=== PATIENT | male | born 1960 | race Caucasian/White ===

== ENCOUNTER 2022-08-31 17:34 | Emergency (ER) | payer OTHER ==
--- OUTSIDE RECORDS SUMMARY | 2022-08-31 17:38 | XMS REPORT | Clinical Summary ---
:1960 Author Organization [facility] MD [facility] Address [address] [place] [address] Care Team Providers Name Role Phone Unavailable Primary Care Provider Unavailable Allergies No known active allergies Medications Medication Sig Dispensed Refills Start Date End Date Status docosahexaenoic Take 2,000 mg by 0 Active acid/epa (FISH OIL mouth daily. ORAL) nicotine (NICODERM CQ) Apply 1 patch to 28 patch 0 03/05/2021 Active 21 mg/24 hr transdermal skin and change patchIndications: patch daily as Tobacco dependence directed for syndrome tobacco cessation (alternate sites). NICORETTE 2 mg gum Chew and park 200 Piece 0 03/05/2021 Active fruit chillIndications: one piece every Tobacco dependence 2h. Avoid acidic syndrome beverages 5 min before, during & after gabapentin (NEURONTIN) Take one at HS 90 capsule 0 03/11/2021 Active 300 mg for first day capsuleIndications: then may Insomnia, not otherwise increase to 2-3 specified qHS buPROPion (WELLBUTRIN Take 1 tablet 30 tablet 0 04/09/2021 Active XL) 150 mg 24 hr (150 mg) by tabletIndications: mouth every Ex-smoker for less than morning. 1 year Active Problems Problem Noted Date Prostatitis 02/12/2021 Anxiety disorder 02/12/2021 Hypercholesterolemia 02/12/2021 Tobacco dependence syndrome 12/31/2020 Osteoporosis 09/23/2016 Obese class II 09/20/2013 Medical History Medical History Date Comments Gastroesophageal reflux disease Social History Tobacco Use Types Packs/Day Years Used Date Smoking Tobacco: Former Cigarettes 1 45 07/1975 - 01/22/2021 Smokeless Tobacco: Former Qu it: 1994 Tobacco Cessation: Counseling Given: Yes Alcohol Use Standard Drinks/Week Comments Yes 0 (1 standard drink = 0.6 oz pure Report s drinking 1-2 drinks per alcohol) month Sex Assigned at Date Recorded Not on file Obstetrics History Last Filed Vital Signs Not on file Plan of Treatment Health Maintenance Due Date Last Done Comments COVID-19 Vaccination (#1) 04/23/1962 Results Not on fileafter 08/31/2021
--- OUTSIDE RECORDS SUMMARY | 2022-08-31 17:41 | XMS REPORT | Continuity of Care Document ---
:1960 Author Organization [facility] t Address [address] [place] [address] [address] [place] [address] Care Team Providers Name Role Phone Vikki Kendrick MD Primary Care Physician Tammy Raymond Attending Clinician Unavailable SYSTEM, PROVIDER NOT IN Attending Clinician Unavailable CLAIR MENDOZA Attending Clinician Unavailable RODY HOGUE Attending Clinician Unavailable WHITNEY MOYA Attending Clinician Unavailable JESSE CHILDRESS Attending Clinician Unavailable Danae Luna Attending Clinician Danae Luna Admitting Clinician Problems Condition Condition Condition Status Onset Resolution Last Treating Co mments Source Name Details Category Date Date Treatment Clinician Date Prostatiti Prostatiti Disease Active U balbir s s 8-12 ity of 00:00: 00 [facility] Anxiety Anxiety Disease Active Univers disorder disorder 8-12 ity of 00:00: 00 MD [facility] Hyperchole Hyperchole Disease Active U balbir sterolemia sterolemia 8-12 it y of 00:00: 00 MD Alessandro craig [facility] Center Tobacco Tobacco Disease Active Univers dependence dependence 6-30 it y of syndrome syndrome 00:00: 00 MD [facility] COCAINE COCAINE Diagnosis Active 2017-07-01 Memoria ABUSE, ABUSE, - 08:03:00 l RHABDOMYOL RHABDOMYOL 00:00: He yaredtashi YIS, YIS, 00 HYPOKALEMI HYPOKALEMI Active 11/03/2016 [facility] OTHER OTHER Diagnosis Active 2016-11-03 Mem oria Active 11-03 23:17:00 l 11/03/2016 00:00: Bandar craig [address] Osteoporos Osteoporos Disease Active U nivers is is 09-23 ity of 00:00: [place] 00 MD [facility] Osteoporos Osteoporos Disease Active M leatha is with is with 09-23 st pathologic pathologic 00:00: Ho spita al al 00 l fracture fracture of ankle of ankle and foot and foot Hypogonadi Hypogonadi Disease Active M ethodi sm in male sm in male 09-23 00:00: Hospita 00 l Plantar Plantar Disease Active Methodi fasciitis fasciitis 07-12 00:00: Hospita 00 l Arthritis Arthritis Disease Active Met hodi of ankle of ankle 02-01 or foot, or foot, 00:00: Hospit a degenerati degenerati 00 l ve ve Obese Obese Disease Active Univers class II class II 3- ity of 00:00: [place] 00 MD [facility] Deficiency Deficienc Problem Active 2016-11-09 Memoria of y of 00:30:23 l macronutri macronutri He mala ents ents (disorder) (disorder) Active Problem 11/09/2016 [facility] COCAINE COCAINE Diagnosis Active 2017-07-01 Memoria ABUSE, ABUSE, 08:03:00 l UNCOMPLICA UNCOMPLICA He mala LANI GARIBAY Active [facility] RHABDOMYOL RHABDOMYO Diagnosis Active 2017-07-01 Memoria YSIS LYSIS 08:03:00 l Active [facility] HYPOKALEMI HYPOKALEM Diagnosis Active 2017-07-01 Memoria A IA Active 08:03:00 l [facility] [id number] Anxiety Problem Active [facility] [id number] Testostero Problem Active C ommon 104 ne Spirit deficiency - [facility] in male [facility] [id number] Body mass Problem Active Com mon index Spirit (BMI) of - CHI 34.0-34.9 [facility] in [facility] [id number] Obstructiv Problem Active Com mon e sleep Spirit apnea - [facility] syndrome [facility] [id number] Pure Problem Active Common hyperchole Spirit sterolemia - [facility] Allergies, Adverse Reactions, Alerts This patient has no known allergies or adverse reactions. Family History Family Member Diagnosis Comments Start Date Stop Date Source Natural mother Alzheimer's disease [facility] Social History Social Habit Start Date Stop Date Quantity Comments Source History of Tobacco [facility] - Use [facility] Cigarette 2021-01-28 2021-01-28 University of pack-years 00:00:00 00:00:00 Jaron Oneill [facility] Tobacco use and 2021-01-28 2021-01-28 Former smokeless Uni versity of exposure 00:00:00 00:00:00 tobacco user Jaron Mckeon [facility] Alcohol Comment 2020-12-31 2020-12-31 Reports drinking Uni versity of 00:00:00 00:00:00 1-2 drinks per Jaron austin [facility] Cigarettes smoked 2018-05-09 2018-05-09 [facility] current (pack per 00:00:00 00:00:00 [facility] l day) - Reported Alcohol intake 2018-05-09 2018-05-09 Current [facility] 00:00:00 00:00:00 non-drinker of Hospital alcohol (finding) Social History 2016-11-04 2016-11-04 [facility] frances 03:59:53 03:59:53 Sex Ass[birth year] At [birth year] [facility] 00:00:00 00:00:00 Hospital Smoking Status Start Date Stop Date Source Former Smoker 2019-07-19 00:00:00 2019-07-19 00:00:00 Common S pirit - [facility] Ce nter Smokes tobacco daily 2018-05-09 00:00:00 [facility] Medications Ordered Filled Start Stop Current Ordering Indication Dosage Frequency Signature Comments Components Source Medication Medication Date Date Medication? Clinician (SIG) Name Name buPROPion 2020-07 Yes Ex-smoker 150mg Take 1 Univers (WELLBUTRIN 0-07 for less tablet it y of XL) 150 mg 00:00: than 1 year (150 mg) [place] 24 hr 00 by mouth tablet every Anderso morning. [facility] gabapentin Yes Insomnia, Take one Univers (NEURONTIN) 03-11 not at HS for ity of 300 mg 00:00: otherwise first day [place] capsule 00 specified then may increase [email or web address] nicotine Yes Tobacco Apply 1 Uni vers (NICODERM 03-05 dependence patch to ity of CQ) 21 00:00: syndrome skin and Matthew as mg/24 hr 00 change transdermal patch Anderso patch daily as n directed Cancer for Center tobacco cessation (alternate sites). NICORETTE 2 Yes Tobacco Chew and Univers mg gum 03-05 dependence park one ity of fruit chill 00:00: syndrome piece [place] 00 every 2h. Avoid Anderso acidic n beverages Cancer 5 min Center before, during & after docosahexae Yes 2000mg Take 2,000 Univers noic 8-12 mg by ity of acid/epa 10:22: mouth [place] (FISH OIL 45 daily. ORAL) [facility] Ciprofloxac Ciprofloxac 2020- No Tammy 1 tablet Common in HCl in HCl 07-19 [place] [facility] 00:00: 00:00 - [facility]I 00 :00 [facility] Flomax Flomax 0 2020- No Tammy 1 capsule Co mmon 07-19 [place] [facility] 00:00: 00:00 - CHI 00 :00 [facility] Niacin Niacin Yes Tammy 1 capsule Com mon Flush Free Flush Free 6-20 [place] [facility] leticia 00:00: - [facility] BuPROPion BuPROPion Yes Tammy 1 tablet Common HCl ER (SR) HCl ER (SR) 5-07 [place] in the Spirit 00:00: morning - [facility] pen needle, Yes [id number] For use Methodi diabetic [address] (BD INSULIN 00:00: [facility] PEN NEEDLE 00 daily l UF MINI) 31 gauge x 3/16" needle tamsulosin Yes 0.4 mg = 1 M emoria 0.4 mg oral 5-06 cap, PO, l capsule 15:01: After [place] 00 Dinner, # 30 cap, 1 Refill(s), Pharmacy: [facility] [id number] Docusate Yes 100 mg = 1 Mem oria Sodium 100 5-06 cap, PO, l MG Oral 15:01: BID, # 20 Keerthi nn Capsule 00 cap, 0 Refill(s), Pharmacy: [facility] [place] [id number] tamsulosin Yes 0.4 mg = 1 M emoria 0.4 mg oral 5-06 cap, PO, l capsule 15:01: After [place] 00 Dinner, # 30 cap, 1 Refill(s), Pharmacy: [facility] [place] [id number] Docusate Yes 100 mg = 1 Mem oria Sodium 100 5-06 cap, PO, l MG Oral 15:01: BID, # 20 Keerthi nn Capsule 00 cap, 0 Refill(s), Pharmacy: [facility] [place] [id number] Protonix No Notes: Memoria 5-05 Tablet l 21:30: should not Aneta 00 be chewed or crushed. (Same as: Protonix) Protonix No Notes: Memoria 5-05 Tablet l 21:30: should not Aneta 00 be chewed or crushed. (Same as: Protonix) D5W ,000 No 1,000 mL, Mem oria mL + 5-05 Rate: 55 l potassium 20:01: ml/hr, Bandar n chloride 40 00 Infuse mEq over: 18.5 hr, Route: IV, Dosing Weight 99.091 kg, Total Volume: 1,020, Start date: 11/05/16 15:01:00 CDT, Duration: 30 day, Stop date: 12/05/16 15:00:00 CDT D5W ,000 No 1,000 mL, Mem oria mL + 5-05 Rate: 55 l potassium 20:01: ml/hr, Bandar n chloride 40 00 Infuse mEq over: 18.5 hr, Route: IV, Dosing Weight 99.091 kg, Total Volume: 1,020, Start date: 11/05/16 15:01:00 CDT, Duration: 30 day, Stop date: 12/05/16 15:00:00 CDT Flomax No Notes: Memoria 5-04 (Same As: l 22:00: Flomax) [place] 00 "Do Not Crush" Lovenox No Notes: Memoria 5-04 (Same as: l 22:00: Lovenox) [place] 00 Flomax No Notes: Memoria 5-04 (Same As: l 22:00: Flomax) [place] 00 "Do Not Crush" Lovenox No Notes: Memoria 5-04 (Same as: l 22:00: Lovenox) potassium No Notes: Memori a chloride 5-04 (Same as: l 17:59: K-Dur 20) "Do Not Crush" With food and full glass of water potassium No Notes: Memori a chloride 5-04 (Same as: l 17:59: K-Dur 20) [place] 00 "Do Not Crush" With food and full glass of water D5W 1,000 No 1,000 mL, Mem oria mL + 5-04 Rate: 100 l potassium 17:58: ml/hr, Bandar n chloride 40 00 Infuse mEq over: 10.2 hr, Route: IV, Dosing Weight 99.091 kg, Total Volume: 1,020, Start date: 11/04/16 12:58:00 CDT, Duration: 30 day, Stop date: 12/04/16 12:57:00 CDT D5W 1,000 No 1,000 mL, Mem oria mL + 5-04 Rate: 100 l potassium 17:58: ml/hr, Bandar n chloride 40 00 Infuse mEq over: 10.2 hr, Route: IV, Dosing Weight 99.091 kg, Total Volume: 1,020, Start date: 11/04/16 12:58:00 CDT, Duration: 30 day, Stop date: 12/04/16 12:57:00 CDT Fish Oil No Notes: Memoria 5-04 (Same as: l 14:00: MaxEPA, [place] 00 [place] 3 fish oil ) Non-Formu clarke Drug Docusate No Notes: Memoria 5-04 (Same as: l 14:00: Colace) (Do Not Crush) Fish Oil No Notes: Memoria 5-04 (Same as: l 14:00: MaxEPA, [place] Walnut 3 fish oil ) Non-Formul deepti Drug Docusate No Notes: Memoria 5-04 (Same as: l 14:00: Colace) (Do Not Crush) Fish Oil Yes = 1 cap, Memor ia 5-04 PO, Daily, l 06:45: 0 Aneta 00 Refill(s) multivitami Yes 1 tab, Akhil asia n 5-04 Daily, 0 l 06:45: Refill(s) [place] 00 Fish Oil Yes = 1 cap, Memor ia 5-04 PO, Daily, l 06:45: 0 [place] 00 Refill(s) multivitami Yes 1 tab, Akhil asia n 5-04 Daily, 0 l 06:45: Refill(s) Acetaminoph No 100.4 F, M emoria en 5-04 Start l 06:10: date: [place] 00 11/04/16 1:10:00 CDT, Duration: 30 day, Stop date: 12/04/16 1:09:00 CDT Acetaminoph No Notes: Akhil asia en 325 MG / 5-04 (Same as: l Hydrocodone 06:10: [place] Keerthi nn Bitartrate 00 325/5) Do 5 MG Oral not exceed Tablet 4gm/day of acetaminop hen. Morphine No Notes: Memoria 5-04 (Same l 06:10: as:MORPhin e Sulfate) Ondansetron No 4 mg, Memor ia 5-04 Route: l 06:10: IVP, Q6H, Dosing Weight 100, kg, PRN Nausea & Vomiting, Start date: 11/04/16 1:10:00 CDT, Duration: 30 day, Stop date: 12/04/16 1:09:00 CDT Acetaminoph No 100.4 F, M emoria en 5-04 Start l 06:10: date: Aneta 00 11/04/16 1:10:00 CDT, Duration: 30 day, Stop date: 12/04/16 1:09:00 CDT Acetaminoph No Notes: Akhil asia en 325 MG / 5-04 (Same as: l Hydrocodone 06:10: [place] Keerthi nn Bitartrate 00 325/5) Do 5 MG Oral not exceed Tablet 4gm/day of acetaminop hen. Morphine No Notes: Memoria 5-04 (Same l 06:10: as:MORPhin [place] 00 e Sulfate) Ondansetron No 4 mg, Memor ia 11-04 Route: l 06:10: IVP, Q6H, Aneta Dosing Weight 100, kg, PRN Nausea & Vomiting, Start date: 11/04/16 1:10:00 CDT, Duration: 30 day, Stop date: 12/04/16 1:09:00 CDT Ondansetron No Notes: Akhil asia -04 (Same as: l 04:51: Zofran) Aneta 00 MEDICATION WASTE Product Size: 4 mg Product Wasted: ___ mg Acetaminoph No Notes: Do M emoria en - not exceed l 04:51: 4 gm/day. [place]on 00 (Same as: Tylenol) Ondansetron No Notes: Akhil saia -04 (Same as: l 04:51: Zofran) Aneta 00 MEDICATION WASTE Product Size: 4 mg Product Wasted: ___ mg Acetaminoph No Notes: Do M emoria en 5-04 not exceed l 04:51: 4 gm/day. Aneta 00 (Same as: Tylenol) potassium No Notes: Memori a chloride 20 5-04 (Same as: l mEq oral 04:05: K-Dur 20) Herm tashi tablet, 00 " extended release potassium No Notes: Memori a chloride 20 5-04 (Same as: l mEq oral 04:05: K-Dur 20) Herm tashi tablet, 00 " extended release Sodium No 1,000 mL, Memori a Chloride -04 Rate: 150 l 0.154 04:04: ml/hr, [place] MEQ/ML 00 Infuse Injectable over: 6.7 Solution hr, Route: IV, Dosing Weight 100 kg, Total Volume: 1,000, Start date: 11/03/16 23:04:00 CDT, Duration: 30 day, Stop date: 12/03/16 23:03:00 CDT Ativan No Notes: Memoria 5-04 (Same as: l 04:04: Ativan) Aneta Sodium No 1,000 mL, Memori a Chloride 5-04 Rate: 150 l 0.154 04:04: ml/hr, [place] MEQ/ML 00 Infuse Injectable over: 6.7 Solution hr, Route: IV, Dosing Weight 100 kg, Total Volume: 1,000, Start date: 11/03/16 23:04:00 CDT, Duration: 30 day, Stop date: 12/03/16 23:03:00 CDT Ativan No Notes: Memoria 5-04 (Same as: l 04:04: Ativan) Aneta Sodium No 2,000 mL, Memori a Chloride 5-04 2000 l 0.154 04:03: ml/hr, [place] MEQ/ML 00 Infuse Injectable Over: 1 Solution hr, Route: IV, 2,000, Drug form: INJ, ONCE, Priority: STAT, Dosing Weight 100 kg, Start date: 11/03/16 23:03:00 CDT, Duration: 1 doses or times, Stop date: 11/03/16 23:03:00 CDT Sodium No 2,000 mL, Memori a Chloride 5-04 2000 l 0.154 04:03: ml/hr, [place] MEQ/ML 00 Infuse Injectable Over: 1 Solution hr, Route: IV, 2,000, Drug form: INJ, ONCE, Priority: STAT, Dosing Weight 100 kg, Start date: 11/03/16 23:03:00 CDT, Duration: 1 doses or times, Stop date: 11/03/16 23:03:00 CDT Saline No Notes: Memoria Flush 0.9% 5-04 Same as: l 02:36: BD [place] 00 Posiflush Sterile Saline No Notes: Memoria Flush 0.9% 5-04 Same as: l 02:36: BD Aneta 00 Posiflush Sterile celecoxib Yes TAKE ONE Meth cleve (CeleBREX) 3-[address] 200 MG 00:00: MOUTH [facility]osp[facility] capsule 00 EVERY DAY l Fish Oil Fish Oil Yes Tammy 2 capsule C shamika [facility] Flomax 0.4 Flomax 0.4 No 1{capsu QD Flomax 0.4 MG MG le} MG Immunizations Ordered Immunization Filled Immunization Date Status Commen ts Source Name Name Flucelvax - single Flucelvax - single 2019-04-21 Completed [facility] dose syringe dose syringe 08:56:00 - [facility] Vital Signs Vital Name Observation Time Observation Value Comments Source Respitory Rate 2016-11-06 12:54:00 Memori al [place] Systolic (mm Hg) 2016-11-06 12:54:00 Akhil rial [place] Diastolic (mm Hg) 2016-11-06 12:54:00 Mem orial Aneta Heart Rate 2016-11-06 12:54:00 Memorial [place] Temperature Oral (F) 2016-11-06 12:54:00 98.3 F Memorial [place] Respitory Rate 2016-11-06 09:59:00 Memori al Aneta Temperature Oral (F) 2016-11-06 09:59:00 98.8 F Memorial [place] Systolic (mm Hg) 2016-11-06 09:59:00 Akhil rial [place] Diastolic (mm Hg) 2016-11-06 09:59:00 Mem orial Aneta Temperature Oral (F) 2016-11-06 06:20:00 98.9 F Memorial [place] Systolic (mm Hg) 2016-11-06 06:20:00 Akhil rial Aneta Diastolic (mm Hg) 2016-11-06 06:20:00 Mem orial [place] Heart Rate 2016-11-06 06:20:00 Memorial [place] Respitory Rate 2016-11-06 00:24:00 Memori al [place] Heart Rate 2016-11-06 00:24:00 Memorial Aneta BMI Calculated 2016-11-04 06:11:00 Memori al [place] Weight 2016-11-04 06:11:00 Memorial Aneta Height 2016-11-04 06:11:00 172.72 cm Memorial Aneta Weight 2016-11-04 02:24:00 Memorial Aneta Procedures This patient has no known procedures. Plan of Care Planned Activity Planned Date Details Comments Source Future Scheduled 2022-06-17 COVID-19 VACCINE (#1) [facility] Test 11:52:21 [code = COVID-19 VACCINE (#1)] Future Scheduled 2022-06-17 COLONOSCOPY SCREENING [facility] Test 11:52:21 [code = COLONOSCOPY SCREENING] Future Scheduled 2022-06-17 SHINGLES VACCINES (1 [facility] Test 11:52:21 of 2) [code = SHINGLES VACCINES (1 of 2)] Future Scheduled 2022-06-17 INFLUENZA VACCINE [facility] Test 11:52:21 [code = INFLUENZA VACCINE] Future Scheduled 2022-04-06 COVID-19 [facility]ination [facility] [place] Test 08:23:01 (#1) [code = COVID-19 [facility] (#1)] Center Encounters Start End Encounter Admission Attending Care Care Encounter Source Date/Time Date/Time Type Type Clinicians Facility Department ID 2022-02-25 Outpatient Mandi, STLMLC STLC [id number] Common 15:20:[id number] [facility] 2021-07-29 Outpatient Mandi, STLMLC ST[facility] [id number] Common 11:00:[id number] [facility] 2020-12-31 Outpatient MARISOL, CHARLES SOTO [id number] 10:35:18 PROVIDER Jorden craig 2022-02-25 2022-02-25 [facility] [id number] Co mmon 00:00:00 00:00:00 [facility] 2021-04-09 2021-04-09 Outpatient ROHINI KELLYCHARLES MDA [id number] 19:53:56 19:53:56 CLAIR craig 2021-03-18 2021-03-18 Outpatient ROHINI VELEZ MDA, MDA [id number] 09:28:32 09:28:32 BELGICA, And merari craig 2021-03-05 2021-03-05 Outpatient ROHINI KELLYCHARLES MDA [id number] 21:05:45 21:05:45 CLAIR craig 2021-03-02 2021-03-02 Outpatient EL AGUSTIN SOTO MDA [id number] 13:45:38 13:45:38 BELGICA, And erso RODY n 2021-02-12 2021-02-12 Outpatient EL KELLY, MDA MDA [id number] 09:45:34 09:45:34 CLAIR craig 2021-02-11 2021-02-11 Outpatient EL AGUSTIN MDA MDA [id number] MD 10:33:14 10:33:14 BELGICA, And eduardoo RODY n 2021-02-04 2021-02-04 Outpatient EL NITA, MDA MDA [id number] MD 08:24:32 08:24:32 WHITNEY craig 2021-01-28 2021-01-28 Outpatient EL AGUSTIN MDA MDA [id number] MD 10:52:29 10:52:29 BELGICA, And eduardoo RODY n 2021-01-22 2021-01-22 Outpatient EL MONROE, MDA MDA [id number] MD 16:10:34 16:10:34 JESSE craig 2021-01-14 2021-01-14 Outpatient EL AGUSTIN MDA MDA [id number] MD 12:20:48 12:20:48 BELGICA, And erso RODY n 2021-01-07 2021-01-07 Outpatient EL AGUSTIN MDA MDA [id number] 10:27:02 10:27:02 BELGICA, And erso RODY n 2020-12-31 2020-12-31 Outpatient ROHINI CHILDRESS, MDA MDA [id number] 10:21:37 10:21:37 JESSE craig 2020-12-31 2020-12-31 Outpatient EL AGUSTIN MDA MDA [id number] 10:21:29 10:21:29 BELGICA, And erso RODY n 2019-07-19 2019-07-19 Outpatient [facility] [id number] Common 09:00:00 09:00:00 [facility] 2018-12-21 2018-12-21 Outpatient [facility] [id number] Common 08:00:00 08:00:00 [facility] 2018-12-13 2018-12-13 Outpatient M[facility]ail [facility] [id number] Common 15:54:00 15:54:00 t [facility] [address] [facility] 2018-11-07 2018-11-07 Outpatient Mikhail [facility] [id number] Common 09:00:00 09:00:00 t [facility] [address] [facility] 2016-11-04 2016-11-06 Inpatient nullFlavo [facility] [id number] Memoria 02:17:00 17:53:00 r [place] 00 l [facility] 2016-11-04 2016-11-06 Inpatient nullFlavo [facility] [id number] Memoria 02:17:00 17:53:00 r Aneta 00 l [facility] 2016-11-03 2016-11-06 Outpatient GEOVANY LunaJoe [facility] [id number] 21:17:00 12:53:00 Ohigbai 00 Results Test Description Test Time Test Comments Results Result Comments Source CARDIAC ENZYMES 2016-11-06 11:41:00 Test Item Value Reference Range Interpretation Comme nts Total CK (test code = Total CK) 199 12-191 [facility]2017-05-06 11:41:00 Test Item Value Reference Range Interpretation Comments eGFR (test code = eGFR) 104 [facility]2017-05-06 11:41:00 Test Item Value Reference Range Interpretation Comments Chloride Lvl (test code = Chloride Lvl) 111 95-109 [facility]2017-05-06 11:41:00 Test Item Value Reference Range Interpretation Comments CO2 (test code = CO2) 25 24-32 [facility]2017-05-06 11:41:00 Test Item Value Reference Range Interpretation Comments Potassium Lvl (test code = Potassium 4.1 3.5-5.1 Lvl) [facility]2017-05-06 11:41:00 Test Item Value Reference Range Interpretation Comments Calcium Lvl (test code = Calcium Lvl) 8.3 8.5-10.5 [facility]2017-05-06 11:41:00 Test Item Value Reference Range Interpretation Comments AGAP (test code = AGAP) 11.1 10.0-20.0 [facility]2017-05-06 11:41:00 Test Item Value Reference Range Interpretation Comments BUN (test code = BUN) 9 - [facility]2017-05-06 11:41:00 Test Item Value Reference Range Interpretation Comments Creatinine Lvl (test code = Creatinine 0.74 0.50-1.40 Lvl) [facility] [id number] 11:41:00 Test Item Value Reference Range Interpretation Comments Glucose Lvl (test code = Glucose Lvl) 90 70-99 [facility] [id number] 11:41:00 Test Item Value Reference Range Interpretation Comments Sodium Lvl (test code = Sodium Lvl) 143 135-145 [facility] [id number] 11:41:00 Test Item Value Reference Range Interpretation Comments Total CK (test code = Total CK) 199 12-191 [facility]2017-05-06 11:41:00 Test Item Value Reference Range Interpretation Comments eGFR (test code = eGFR) 104 [facility]2017-05-06 11:41:00 Test Item Value Reference Range Interpretation Comments Chloride Lvl (test code = Chloride Lvl) 111 95-109 [facility]2017-05-06 11:41:00 Test Item Value Reference Range Interpretation Comments CO2 (test code = CO2) 25 24-32 [facility]2017-05-06 11:41:00 Test Item Value Reference Range Interpretation Comments Potassium Lvl (test code = Potassium 4.1 3.5-5.1 Lvl) [facility]2017-05-06 11:41:00 Test Item Value Reference Range Interpretation Comments Calcium Lvl (test code = Calcium Lvl) 8.3 8.5-10.5 [facility]2017-05-06 11:41:00 Test Item Value Reference Range Interpretation Comments AGAP (test code = AGAP) 11.1 10.0-20.0 [facility]2017-05-06 11:41:00 Test Item Value Reference Range Interpretation Comments BUN (test code = BUN) 9 - [facility]2017-05-06 11:41:00 Test Item Value Reference Range Interpretation Comments Creatinine Lvl (test code = Creatinine 0.74 0.50-1.40 Lvl) [facility]2017-05-06 11:41:00 Test Item Value Reference Range Interpretation Comments Glucose Lvl (test code = Glucose Lvl) 90 70-99 [facility]2017-05-06 11:41:00 Test Item Value Reference Range Interpretation Comments Sodium Lvl (test code = Sodium Lvl) 143 135-145 [facility] [id number] 10:32:00 Test Item Value Reference Range Interpretation Comments Total CK (test code = Total CK) 476 12-191 [facility]2017-05-05 10:32:00 Test Item Value Reference Range Interpretation Comments Calcium Lvl (test code = Calcium Lvl) 8.2 8.5-10.5 [facility]2017-05-05 10:32:00 Test Item Value Reference Range Interpretation Comments CO2 (test code = CO2) 25 24-32 [facility]2017-05-05 10:32:00 Test Item Value Reference Range Interpretation Comments Chloride Lvl (test code = Chloride Lvl) 113 95-109 [facility]2017-05-05 10:32:00 Test Item Value Reference Range Interpretation Comments Potassium Lvl (test code = Potassium 4.0 3.5-5.1 Lvl) [facility]2017-05-05 10:32:00 Test Item Value Reference Range Interpretation Comments Sodium Lvl (test code = Sodium Lvl) 143 135-145 [facility]2017-05-05 10:32:00 Test Item Value Reference Range Interpretation Comments Creatinine Lvl (test code = Creatinine 0.77 0.50-1.40 Lvl) [facility]2017-05-05 10:32:00 Test Item Value Reference Range Interpretation Comments BUN (test code = BUN) 14 7-22 [facility]2017-05-05 10:32:00 Test Item Value Reference Range Interpretation Comments Glucose Lvl (test code = Glucose Lvl) 96 70-99 [facility]2017-05-05 10:32:00 Test Item Value Reference Range Interpretation Comments eGFR (test code = eGFR) 102 [facility]2017-05-05 10:32:00 Test Item Value Reference Range Interpretation Comments AGAP (test code = AGAP) 9.0 10.0-20.0 [facility] [id number] 10:32:00 Test Item Value Reference Range Interpretation Comments Total CK (test code = Total CK) 476 12-191 [facility]2017-05-05 10:32:00 Test Item Value Reference Range Interpretation Comments Calcium Lvl (test code = Calcium Lvl) 8.2 8.5-10.5 [facility]2017-05-05 10:32:00 Test Item Value Reference Range Interpretation Comments CO2 (test code = CO2) 25 24-32 [facility]2017-05-05 10:32:00 Test Item Value Reference Range Interpretation Comments Chloride Lvl (test code = Chloride Lvl) 113 95-109 [facility]2017-05-05 10:32:00 Test Item Value Reference Range Interpretation Comments Potassium Lvl (test code = Potassium 4.0 3.5-5.1 Lvl) [facility]2017-05-05 10:32:00 Test Item Value Reference Range Interpretation Comments Sodium Lvl (test code = Sodium Lvl) 143 135-145 [facility]2017-05-05 10:32:00 Test Item Value Reference Range Interpretation Comments Creatinine Lvl (test code = Creatinine 0.77 0.50-1.40 Lvl) [facility]2017-05-05 10:32:00 Test Item Value Reference Range Interpretation Comments BUN (test code = BUN) 14 7-22 [facility]2017-05-05 10:32:00 Test Item Value Reference Range Interpretation Comments Glucose Lvl (test code = Glucose Lvl) 96 70-99 [facility]2017-05-05 10:32:00 Test Item Value Reference Range Interpretation Comments eGFR (test code = eGFR) 102 [facility]2017-05-05 10:32:00 Test Item Value Reference Range Interpretation Comments AGAP (test code = AGAP) 9.0 10.0-20.0 [facility] [id number] 16:45:00 Test Item Value Reference Range Interpretation Comments CK MB Index (test 0.7 See_Comment [Automate d message] The code = CK MB Index) system w [facility] generated this result transmit lani reference range : <=2.5. The reference range was not used to interpr et this result as derek l/abnormal. [facility] [employer] [id number] 16:45:00 Test Item Value Reference Range Interpretation Comments CK MB (test code = CK MB) 7.9 0.5-3.6 [facility] [employer] [id number] 16:45:00 Test Item Value Reference Range Interpretation Comments Troponin-I (test code 0.02 See_Comment [Auto mated message] The = Troponin-I) system which g enerated this result transmit lani reference range : <=0.40. The reference r tiesha was not used to interpr et this result as derek l/abnormal. [facility] [id number] 16:45:00 Test Item Value Reference Range Interpretation Comments Total CK (test code = Total CK) 1210 12-191 [facility] [employer] [id number] 16:45:00 Test Item Value Reference Range Interpretation Comments eGFR (test code = eGFR) 100 [facility] [employer] [id number] 16:45:00 Test Item Value Reference Range Interpretation Comments Alk Phos (test code = Alk Phos) 56 39-136 [facility] [employer] [id number] 16:45:00 Test Item Value Reference Range Interpretation Comments Bili Total (test code = Bili Total) 0.5 0.2-1.3 [facility] [employer] [id number] 16:45:00 Test Item Value Reference Range Interpretation Comments AST (test code = AST) 89 See_Comment [Auto mated message] The system which ge nerated this result transmit lani reference range : <=37. The reference range was not used to interpr et this result as derek l/abnormal. [facility] [employer]2017-05-04 16:45:00 Test Item Value Reference Range Interpretation Comments ALT (test code = ALT) 91 See_Comment [Auto mated message] The system which ge nerated this result transmit lani reference range : <=65. The reference range was not used to interpr et this result as derek l/abnormal. [facility] [employer]2017-05-04 16:45:00 Test Item Value Reference Range Interpretation Comments A/G Ratio (test code = A/G Ratio) 1.0 0.7-1.6 [facility] [employer]2017-05-04 16:45:00 Test Item Value Reference Range Interpretation Comments Globulin (test code = Globulin) 2.9 2.7-4.2 [facility]2017-05-04 16:45:00 Test Item Value Reference Range Interpretation Comments Albumin Lvl (test code = Albumin Lvl) 2.9 3.5-5.0 [facility]2017-05-04 16:45:00 Test Item Value Reference Range Interpretation Comments B/C Ratio (test code = B/C Ratio) 22 6-25 [facility]2017-05-04 16:45:00 Test Item Value Reference Range Interpretation Comments Total Protein (test code = Total 5.8 6.4-8.4 Protein) [facility]2017-05-04 16:45:00 Test Item Value Reference Range Interpretation Comments Calcium Lvl (test code = Calcium Lvl) 7.8 8.5-10.5 [facility]2017-05-04 16:45:00 Test Item Value Reference Range Interpretation Comments BUN (test code = BUN) 18 7-22 [facility]2017-05-04 16:45:00 Test Item Value Reference Range Interpretation Comments Creatinine Lvl (test code = Creatinine 0.80 0.50-1.40 Lvl) [facility]2017-05-04 16:45:00 Test Item Value Reference Range Interpretation Comments Glucose Lvl (test code = Glucose Lvl) 100 70-99 [facility]2017-05-04 16:45:00 Test Item Value Reference Range Interpretation Comments CO2 (test code = CO2) 24 24-32 [facility]2017-05-04 16:45:00 Test Item Value Reference Range Interpretation Comments AGAP (test code = AGAP) 13.2 10.0-20.0 [facility]2017-05-04 16:45:00 Test Item Value Reference Range Interpretation Comments Potassium Lvl (test code = Potassium 3.2 3.5-5.1 Lvl) [facility]2017-05-04 16:45:00 Test Item Value Reference Range Interpretation Comments Chloride Lvl (test code = Chloride Lvl) 113 95-109 [facility]2017-05-04 16:45:00 Test Item Value Reference Range Interpretation Comments Sodium Lvl (test code = Sodium Lvl) 147 135-145 [facility] C[id number] 16:45:00 Test Item Value Reference Range Interpretation Comments Hep C Ab (test code = Negative *NA*(11/04/16 Hep C Ab) 11:45 AM) [facility] [id number] 16:45:00 Test Item Value Reference Range Interpretation Comments Hep B Core IgM (test Negative *NA*(11/04/16 code = Hep B Core 11:45 AM) IgM) [facility] [id number] 16:45:00 Test Item Value Reference Range Interpretation Comments Hep A IgM (test code Negative *NA*(11/04/16 = Hep A IgM) 11:45 AM) [facility] Cent[id number] 16:45:00 Test Item Value Reference Range Interpretation Comments Hep Bs Ag (test code Negative *NA*(11/04/16 = Hep Bs Ag) 11:45 AM) [facility]oc[facility] 16:45:00 Test Item Value Reference Range Interpretation Comments CK MB Index (test 0.7 See_Comment [Automate d message] The code = CK MB Index) system w [facility] generated this result transmit lani reference range : <=2.5. The reference range was not used to interpr et this result as derek l/abnormal. [facility] 16:45:00 Test Item Value Reference Range Interpretation Comments CK MB (test code = CK MB) 7.9 0.5-3.6 [facility] 16:45:00 Test Item Value Reference Range Interpretation Comments Troponin-I (test code 0.02 See_Comment [Auto mated message] The = Troponin-I) system which g enerated this result transmit lani reference range : <=0.40. The reference r tiesha was not used to interpr et this result as derek l/abnormal. [facility] Warrantly2017-05-04 16:45:00 Test Item Value Reference Range Interpretation Comments Total CK (test code = Total CK) 1210 12-191 [facility] [employer] [id number] 16:45:00 Test Item Value Reference Range Interpretation Comments eGFR (test code = eGFR) 100 [facility]2017-05-04 16:45:00 Test Item Value Reference Range Interpretation Comments Alk Phos (test code = Alk Phos) 56 39-136 [facility]2017-05-04 16:45:00 Test Item Value Reference Range Interpretation Comments Bili Total (test code = Bili Total) 0.5 0.2-1.3 [place] 273747-05-04 16:45:00 Test Item Value Reference Range Interpretation Comments AST (test code = AST) 89 See_Comment [Auto mated message] The system which ge nerated this result transmit lani reference range : <=37. The reference range was not used to interpr et this result as derek l/abnormal. [place] [address]-05-04 16:45:00 Test Item Value Reference Range Interpretation Comments ALT (test code = ALT) 91 See_Comment [Auto mated message] The system which ge nerated this result transmit lani reference range : <=65. The reference range was not used to interpr et this result as derek l/abnormal. [place] 273747-05-04 16:45:00 Test Item Value Reference Range Interpretation Comments A/G Ratio (test code = A/G Ratio) 1.0 0.7-1.6 [place] 273747-05-04 16:45:00 Test Item Value Reference Range Interpretation Comments Globulin (test code = Globulin) 2.9 2.7-4.2 [place] 273747-05-04 16:45:00 Test Item Value Reference Range Interpretation Comments Albumin Lvl (test code = Albumin Lvl) 2.9 3.5-5.0 [facility]2017-05-04 16:45:00 Test Item Value Reference Range Interpretation Comments B/C Ratio (test code = B/C Ratio) 22 6-25 [place] [address]-05-04 16:45:00 Test Item Value Reference Range Interpretation Comments Total Protein (test code = Total 5.8 6.4-8.4 Protein) [place] 273747-05-04 16:45:00 Test Item Value Reference Range Interpretation Comments Calcium Lvl (test code = Calcium Lvl) 7.8 8.5-10.5 [place] 273747-05-04 16:45:00 Test Item Value Reference Range Interpretation Comments BUN (test code = BUN) 18 7-22 [facility]2017-05-04 16:45:00 Test Item Value Reference Range Interpretation Comments Creatinine Lvl (test code = Creatinine 0.80 0.50-1.40 Lvl) [facility]2017-05-04 16:45:00 Test Item Value Reference Range Interpretation Comments Glucose Lvl (test code = Glucose Lvl) 100 70-99 [facility]2017-05-04 16:45:00 Test Item Value Reference Range Interpretation Comments CO2 (test code = CO2) 24 24-32 [facility]2017-05-04 16:45:00 Test Item Value Reference Range Interpretation Comments AGAP (test code = AGAP) 13.2 10.0-20.0 [facility]2017-05-04 16:45:00 Test Item Value Reference Range Interpretation Comments Potassium Lvl (test code = Potassium 3.2 3.5-5.1 Lvl) [facility]2017-05-04 16:45:00 Test Item Value Reference Range Interpretation Comments Chloride Lvl (test code = Chloride Lvl) 113 95-109 [facility]2017-05-04 16:45:00 Test Item Value Reference Range Interpretation Comments Sodium Lvl (test code = Sodium Lvl) 147 135-145 [facility]XQ[facility]TSJGK7062[facility]84 16:45:00 Test Item Value Reference Range Interpretation Comments Hep C Ab (test code = Negative *NA*(11/04/16 Hep C Ab) 11:45 AM) [facility] [id number] 16:45:00 Test Item Value Reference Range Interpretation Comments Hep B Core IgM (test Negative *NA*(11/04/16 code = Hep B Core 11:45 AM) IgM) [facility] [id number] 16:45:00 Test Item Value Reference Range Interpretation Comments Hep A IgM (test code Negative *NA*(11/04/16 = Hep A IgM) 11:45 AM) [facility] Tyl[id number] 16:45:00 Test Item Value Reference Range Interpretation Comments Hep Bs Ag (test code Negative *NA*(11/04/16 = Hep Bs Ag) 11:45 AM) [facility] [id number] 16:06:00 Test Item Value Reference Range Interpretation Comments U Opiate Scr (test Negative *NA*(11/04/16 code = U Opiate Scr) 11:06 AM) [facility] [id number] 16:06:00 Test Item Value Reference Range Interpretation Comments U Amph Scr (test code Negative *NA*(11/04/16 = U Amph Scr) 11:06 AM) [facility] [id number] 16:06:00 Test Item Value Reference Range Interpretation Comments UA RBC (test None Seen See_Comment [Automated mes [place]] code = UA RBC) (11/04/16 11:06 The system w hich AM) generated this result transmitted ref erence range: <=2. The reference range was not used to int erpret this result as normal/abnormal . [facility] [id number] 16:06:00 Test Item Value Reference Range Interpretation Comments UA WBC (test code = UA WBC) 0-2 /HPF [facility] [id number] 16:06:00 Test Item Value Reference Range Interpretation Comments UA Sq Epi (test code = UA Sq Occasional /LPF Epi) [facility] [id number] 16:06:00 Test Item Value Reference Range Interpretation Comments UA Bacteria (test code = UA Occasional /HPF Bacteria) [facility] [id number] 16:06:00 Test Item Value Reference Range Interpretation Comments UA Mucus (test code = UA Mucus) Few /LPF [facility] [id number] 16:06:00 Test Item Value Reference Range Interpretation Comments Micro? (test code = Performed (11/04/16 11:06 Micro?) AM) [facility] [id number] 16:06:00 Test Item Value Reference Range Interpretation Comments UA Nitrite (test code Negative (11/04/16 11:06 = UA Nitrite) AM) [facility] [id number] 16:06:00 Test Item Value Reference Range Interpretation Comments UA Leuk Est (test Negative (11/04/16 11:06 code = UA Leuk Est) AM) [facility] [id number] 16:06:00 Test Item Value Reference Range Interpretation Comments UA Urobilinogen (test code = UA 4.0 0.1-1.0 Urobilinogen) [facility] AND [id number] 16:06:00 Test Item Value Reference Range Interpretation Comments UA Protein (test code = UA Protein) 30 mg/dL [facility] AND [id number] 16:06:00 Test Item Value Reference Range Interpretation Comments UA Glucose (test code Negative (11/04/16 11:06 = UA Glucose) AM) [facility] AND [id number] 16:06:00 Test Item Value Reference Range Interpretation Comments UA Spec Grav (test code = UA Spec 1.020 1 Grav) [facility] AND [id number] 16:06:00 Test Item Value Reference Range Interpretation Comments UA Color (test code = Yellow *NA*(11/04/16 UA Color) 11:06 AM) [facility] AND [id number] 16:06:00 Test Item Value Reference Range Interpretation Comments UA Turbidity (test code = Clear (11/04/16 11:06 UA Turbidity) AM) [facility] AND [id number] 16:06:00 Test Item Value Reference Range Interpretation Comments UA Bili (test code = Moderate 1*ABN*(11/04/16 UA Bili) 11:06 AM) [facility] AND [id number] 16:06:00 Test Item Value Reference Range Interpretation Comments UA Ketones (test code = UA Ketones) 40 mg/dL [facility] AND [id number] 16:06:00 Test Item Value Reference Range Interpretation Comments UA Blood (test code = Negative (11/04/16 11:06 UA Blood) AM) [facility] AND [id number] 16:06:00 Test Item Value Reference Range Interpretation Comments UA pH (test code = UA pH) 6.0 1 5.0-8.0 [facility] AND [id number] 16:06:00 Test Item Value Reference Range Interpretation Comments UA Glucose (test code Negative (11/04/16 11:06 = UA Glucose) AM) [facility] AND [id number] 16:06:00 Test Item Value Reference Range Interpretation Comments UA Spec Grav (test code = UA Spec 1.020 1 Grav) [facility] AND [id number] 16:06:00 Test Item Value Reference Range Interpretation Comments UA Color (test code = Yellow *NA*(11/04/16 UA Color) 11:06 AM) [facility] [id number] 16:06:00 Test Item Value Reference Range Interpretation Comments UA Turbidity (test code = Clear (11/04/16 11:06 UA Turbidity) AM) [facility] [id number] 16:06:00 Test Item Value Reference Range Interpretation Comments UA Bili (test code = Moderate 1*ABN*(11/04/16 UA Bili) 11:06 AM) [facility] [id number] 16:06:00 Test Item Value Reference Range Interpretation Comments UA Ketones (test code = UA Ketones) 40 mg/dL [facility] [id number] 16:06:00 Test Item Value Reference Range Interpretation Comments UA Blood (test code = Negative (11/04/16 11:06 UA Blood) AM) [facility] [id number] 16:06:00 Test Item Value Reference Range Interpretation Comments UA pH (test code = UA pH) 6.0 1 5.0-8.0 [facility] [id number] 16:06:00 Test Item Value Reference Range Interpretation Comments U Cocaine Scr (test Positive *ABN*(11/04/16 code = U Cocaine Scr) 11:06 AM) [facility] [id number] 16:06:00 Test Item Value Reference Range Interpretation Comments U Angie Scr (test code Negative *NA*(11/04/16 = U Angie Scr) 11:06 AM) [facility] [id number] 16:06:00 Test Item Value Reference Range Interpretation Comments U Benzodia Scr (test Negative *NA*(11/04/16 code = U Benzodia Scr) 11:06 AM) [facility] [id number] 16:06:00 Test Item Value Reference Range Interpretation Comments UDS Note (test code = See Note (11/04/16 11:06 UDS Note) AM) [facility] [id number] 16:06:00 Test Item Value Reference Range Interpretation Comments U Phencyc Scr (test Negative *NA*(11/04/16 code = U Phencyc Scr) 11:06 AM) [facility] [id number] 16:06:00 Test Item Value Reference Range Interpretation Comments U Cannab Scr (test Negative *NA*(11/04/16 code = U Cannab Scr) 11:06 AM) [facility] [id number] 16:06:00 Test Item Value Reference Range Interpretation Comments U Opiate Scr (test Negative *NA*(11/04/16 code = U Opiate Scr) 11:06 AM) [facility] [id number] 16:06:00 Test Item Value Reference Range Interpretation Comments U Amph Scr (test code Negative *NA*(11/04/16 = U Amph Scr) 11:06 AM) [facility] [id number] 16:06:00 Test Item Value Reference Range Interpretation Comments UA RBC (test None Seen See_Comment [Automated mes [place]] code = UA RBC) (11/04/16 11:06 The system w [facility] AM) generated this result transmitted ref erence range: <=2. The reference range was not used to int erpret this result as normal/abnormal . [facility] [id number] 16:06:00 Test Item Value Reference Range Interpretation Comments UA WBC (test code = UA WBC) 0-2 /HPF [facility] [id number] 16:06:00 Test Item Value Reference Range Interpretation Comments UA Sq Epi (test code = UA Sq Occasional /LPF Epi) [facility] [id number] 16:06:00 Test Item Value Reference Range Interpretation Comments UA Bacteria (test code = UA Occasional /HPF Bacteria) [facility] [id number] 16:06:00 Test Item Value Reference Range Interpretation Comments UA Mucus (test code = UA Mucus) Few /LPF [facility] [id number] 16:06:00 Test Item Value Reference Range Interpretation Comments Micro? (test code = Performed (11/04/16 11:06 Micro?) AM) [facility] [id number] 16:06:00 Test Item Value Reference Range Interpretation Comments UA Nitrite (test code Negative (11/04/16 11:06 = UA Nitrite) AM) [facility] [id number] 16:06:00 Test Item Value Reference Range Interpretation Comments UA Leuk Est (test Negative (11/04/16 11:06 code = UA Leuk Est) AM) [facility] [id number] 16:06:00 Test Item Value Reference Range Interpretation Comments UA Urobilinogen (test code = UA 4.0 0.1-1.0 Urobilinogen) [facility] [id number] 16:06:00 Test Item Value Reference Range Interpretation Comments UA Protein (test code = UA Protein) 30 mg/dL [facility] [id number] 16:06:00 Test Item Value Reference Range Interpretation Comments U Cocaine Scr (test Positive *ABN*(11/04/16 code = U Cocaine Scr) 11:06 AM) [facility] [id number] 16:06:00 Test Item Value Reference Range Interpretation Comments U Angie Scr (test code Negative *NA*(11/04/16 = U Angie Scr) 11:06 AM) [facility] [id number] 16:06:00 Test Item Value Reference Range Interpretation Comments U Benzodia Scr (test Negative *NA*(11/04/16 code = U Benzodia Scr) 11:06 AM) [facility] [id number] 16:06:00 Test Item Value Reference Range Interpretation Comments UDS Note (test code = See Note (11/04/16 11:06 UDS Note) AM) [facility] [id number] 16:06:00 Test Item Value Reference Range Interpretation Comments U Phencyc Scr (test Negative *NA*(11/04/16 code = U Phencyc Scr) 11:06 AM) [facility] [id number] 16:06:00 Test Item Value Reference Range Interpretation Comments U Cannab Scr (test Negative *NA*(11/04/16 code = U Cannab Scr) 11:06 AM) [facility] [id number] 11:54:00 Test Item Value Reference Range Interpretation Comments Troponin-I (test code 0.03 See_Comment [Auto mated message] The = Troponin-I) system which g enerated this result transmit lani reference range : <=0.40. The reference r tiesha was not used to interpr et this result as derek l/abnormal. [facility] [id number] 11:54:00 Test Item Value Reference Range Interpretation Comments CK MB Index (test 0.7 See_Comment [Automate d message] The code = CK MB Index) system w [facility] generated this result transmit lani reference range : <=2.5. The reference range was not used to interpr et this result as derek l/abnormal. [facility] [id number] 11:54:00 Test Item Value Reference Range Interpretation Comments CK MB (test code = CK MB) 10.6 0.5-3.6 [id number] 11:54:00 Test Item Value Reference Range Interpretation Comments Basophils # (test code 0.1 See_Comment [Aut omated message] The = Basophils #) system which generated this result tra nsmitted reference range : <=0.2. The reference r tiesha was not used to int erpret this result as normal/abnormal . [facility] [id number] 11:54:00 Test Item Value Reference Range Interpretation Comments Monocytes # (test code 0.7 See_Comment [Aut omated message] The = Monocytes #) system which generated this result tra nsmitted reference range : <=0.8. The reference r tiesha was not used to int erpret this result as normal/abnormal . [facility] H[id number] 11:54:00 Test Item Value Reference Range Interpretation Comments Eosinophils # (test code 0.3 See_Comment [A utomated message] The = Eosinophils #) system [facility] generated this result tra nsmitted reference range : <=0.5. The reference r tiesha was not used to int erpret this result as normal/abnormal . [facility] H[id number] 11:54:00 Test Item Value Reference Range Interpretation Comments Eosinophils (test code = 3.3 See_Comment [A utomated message] The Eosinophils) system which ge nerated this result tra nsmitted reference range : <=4.0. The reference r tiesha was not used to int erpret this result as normal/abnormal . [facility] H[id number] 11:54:00 Test Item Value Reference Range Interpretation Comments Basophils (test code = 0.6 See_Comment [Aut omated message] The Basophils) system which ge nerated this result tra nsmitted reference range : <=1.0. The reference r tiesha was not used to int erpret this result as normal/abnormal . [id number] 11:54:00 Test Item Value Reference Range Interpretation Comments Monocytes (test code = Monocytes) 8.3 2.0-12.0 [facility] [id number] 11:54:00 Test Item Value Reference Range Interpretation Comments Segs-Bands # (test code = Segs-Bands #) 5.6 1.5-8.1 [facility] [facility]WziomngKPKPKBDSLW5475-10-96 11:54:00 Test Item Value Reference Range Interpretation Comments Lymphocytes # (test code = Lymphocytes 2.2 1.0-5.5 #) [facility]ressOjpfelhHPZWGHXYMJ0836-94-59 11:54:00 Test Item Value Reference Range Interpretation Comments Lymphocytes (test code = Lymphocytes) 24.8 20.0-40.0 [facility] CypressRvgsaqrLXTGLLQPFJ4671-60-16 11:54:00 Test Item Value Reference Range Interpretation Comments Segs (test code = Segs) 63.0 45.0-75.0 [facility] CypressQlfaiomBOPWSUMOIA7894-50-81 11:54:00 Test Item Value Reference Range Interpretation Comments Hct (test code = Hct) 38.9 42.0-54.0 [facility] CypressBdnbgtiYMSKIUIDJA9013-12-65 11:54:00 Test Item Value Reference Range Interpretation Comments MCV (test code = MCV) 88.8 80.0-94.0 [facility] CypressGwpifkvRIAEEXTONG9093-61-18 11:54:00 Test Item Value Reference Range Interpretation Comments RBC (test code = RBC) 4.38 4.70-6.10 [facility] CypressYfyaxyzQEZIQQQIVL0840-75-37 11:54:00 Test Item Value Reference Range Interpretation Comments Hgb (test code = Hgb) 13.2 14.0-18.0 [facility] CypressHsxozvmLFNKNECHNL3997-00-63 11:54:00 Test Item Value Reference Range Interpretation Comments WBC (test code = WBC) 8.9 3.7-10.4 [facility] CypressVsfwmbyNZIZMACICP2393-57-47 11:54:00 Test Item Value Reference Range Interpretation Comments Platelet (test code = Platelet) 179 133-450 [facility]UymjugvARRQVJEGVR8683-10-00 11:54:00 Test Item Value Reference Range Interpretation Comments MPV (test code = MPV) 9.5 7.4-10.4 [facility] CenterZqaopjfJEUZTURTTR1433-15-10 11:54:00 Test Item Value Reference Range Interpretation Comments MCHC (test code = MCHC) 34.0 32.0-36.0 [facility] CenterAnjelzxOUMDARWBQM2229-03-00 11:54:00 Test Item Value Reference Range Interpretation Comments RDW (test code = RDW) 14.0 11.5-14.5 [facility] CenterBaxgzodVXGNEFMHPO0622-75-63 11:54:00 Test Item Value Reference Range Interpretation Comments MCH (test code = MCH) 30.2 pg 27.0-31.0 [facility] CenterRoc2Loc2017-[facility] 11:54:00 Test Item Value Reference Range Interpretation Comments Troponin-I (test code 0.03 See_Comment [Auto mated message] The = Troponin-I) system which g enerated this result transmit lani reference range : <=0.40. The reference r tiesha was not used to interpr et this result as derek l/abnormal. [facility] TylerVKernel CorporationAYFDVJX1187-17-09 11:54:00 Test Item Value Reference Range Interpretation Comments CK MB Index (test 0.7 See_Comment [Automate d message] The code = CK MB Index) system w [facility] generated this result transmit lani reference range : <=2.5. The reference range was not used to interpr et this result as derek l/abnormal. [facility] TylerGIS Cloud OCDOPFI6886-68-39 11:54:00 Test Item Value Reference Range Interpretation Comments CK MB (test code = CK MB) 10.6 0.5-3.6 [facility] CenterHgxljacLPWPDSKVRR4147-58-25 11:54:00 Test Item Value Reference Range Interpretation Comments Basophils # (test code 0.1 See_Comment [Aut omated message] The = Basophils #) system which generated this result tra nsmitted reference range : <=0.2. The reference r tiesha was not used to int erpret this result as normal/abnormal . [facility] CenterNehbdyhWNIIEIJZFN3609-62-50 11:54:00 Test Item Value Reference Range Interpretation Comments Monocytes # (test code 0.7 See_Comment [Aut omated message] The = Monocytes #) system which generated this result tra nsmitted reference range : <=0.8. The reference r tiesha was not used to int erpret this result as normal/abnormal . [facility] CypressBfkriglRIPDIFVWHT2891-49-55 11:54:00 Test Item Value Reference Range Interpretation Comments Eosinophils # (test code 0.3 See_Comment [A utomated message] The = Eosinophils #) system whic h generated this result tra nsmitted reference range : <=0.5. The reference r tiesha was not used to int erpret this result as normal/abnormal . [facility] CypressOsroxeuCBLWNCBWTZ5197-65-97 11:54:00 Test Item Value Reference Range Interpretation Comments Eosinophils (test code = 3.3 See_Comment [A utomated message] The Eosinophils) system which ge nerated this result tra nsmitted reference range : <=4.0. The reference r tiesha was not used to int erpret this result as normal/abnormal . [facility] CypressJhxnnucMJUIROWSIC7214-25-98 11:54:00 Test Item Value Reference Range Interpretation Comments Basophils (test code = 0.6 See_Comment [Aut omated message] The Basophils) system which ge nerated this result tra nsmitted reference range : <=1.0. The reference r tiesha was not used to int erpret this result as normal/abnormal . [facility] CypressRyqfjcbGFVXOJKXMM4667-39-77 11:54:00 Test Item Value Reference Range Interpretation Comments Monocytes (test code = Monocytes) 8.3 2.0-12.0 [facility] CypressWcyvwmoIGENLPRWRZ8390-13-31 11:54:00 Test Item Value Reference Range Interpretation Comments Segs-Bands # (test code = Segs-Bands #) 5.6 1.5-8.1 [facility] CypressHmivcwiUSZIPGONZP0599-94-54 11:54:00 Test Item Value Reference Range Interpretation Comments Lymphocytes # (test code = Lymphocytes 2.2 1.0-5.5 #) [facility] CypressDjtedvoMGLAKBPUTU8599-51-09 11:54:00 Test Item Value Reference Range Interpretation Comments Lymphocytes (test code = Lymphocytes) 24.8 20.0-40.0 [facility] CypressRwjasirSHPXOJWTXU2367-86-92 11:54:00 Test Item Value Reference Range Interpretation Comments Segs (test code = Segs) 63.0 45.0-75.0 [facility] CypressWluewgrFTRDAYCZKS8143-46-12 11:54:00 Test Item Value Reference Range Interpretation Comments Hct (test code = Hct) 38.9 42.0-54.0 [facility] CypressQzowxdtMYHRRLTIEW1637-70-90 11:54:00 Test Item Value Reference Range Interpretation Comments MCV (test code = MCV) 88.8 80.0-94.0 [facility] CypressDcmabjrNZDOLUTYYI0792-12-70 11:54:00 Test Item Value Reference Range Interpretation Comments RBC (test code = RBC) 4.38 4.70-6.10 [facility] CypressHbpzbnvHMUACVHZOR3485-66-20 11:54:00 Test Item Value Reference Range Interpretation Comments Hgb (test code = Hgb) 13.2 14.0-18.0 [facility] CypressCsjpjmhVEFREJJMQX4352-38-40 11:54:00 Test Item Value Reference Range Interpretation Comments WBC (test code = WBC) 8.9 3.7-10.4 [facility] CypressMklfyibGNDPGEYRIP4922-16-77 11:54:00 Test Item Value Reference Range Interpretation Comments Platelet (test code = Platelet) 179 133-450 [facility] CypressAwhzorxJBEWNTIWXA4947-13-64 11:54:00 Test Item Value Reference Range Interpretation Comments MPV (test code = MPV) 9.5 7.4-10.4 [facility] CypressFiszdudIPRSRUXACI1383-36-99 11:54:00 Test Item Value Reference Range Interpretation Comments MCHC (test code = MCHC) 34.0 32.0-36.0 [facility] CypressIlrearfZGRAMBADFI7729-79-70 11:54:00 Test Item Value Reference Range Interpretation Comments RDW (test code = RDW) 14.0 11.5-14.5 [facility] CypressJpdxwqbODTIZQNMUB1140-68-74 11:54:00 Test Item Value Reference Range Interpretation Comments MCH (test code = MCH) 30.2 pg 27.0-31.0 [place] [id number] 04:50:00 Test Item Value Reference Range Interpretation Comments Acetaminoph Lvl (test code = no gt 10-20 Acetaminoph Lvl) [place] [id number] 04:50:00 Test Item Value Reference Range Interpretation Comments Ethanol Lvl (test code = Ethanol Lvl) [facility]ntritiDWHHLOEACY0683-14-91 04:50:00 Test Item Value Reference Range Interpretation Comments Etoh (%) (test code = Etoh (%)) no gt [facility] BjkqdsnLSZVMLYVUK3406-29-28 04:50:00 Test Item Value Reference Range Interpretation Comments Salicylate Lvl (test no gt See_Comment [Autom ated message] The code = Salicylate Lvl) syste m which generated this result tra nsmitted reference range : <=30.0. The reference r tiesha was not used to int erpret this result as normal/abnormal . [facility] QlumttkLLYTLOQOCK5518-80-48 04:50:00 Test Item Value Reference Range Interpretation Comments Acetaminoph Lvl (test code = no gt 10-20 Acetaminoph Lvl) [facility] CenterLemcjmeIWDJFUBUGH2248-85-77 04:50:00 Test Item Value Reference Range Interpretation Comments Ethanol Lvl (test code = Ethanol Lvl) no gt [facility] CenterHqazjkrATZTJRJCHN0162-97-27 04:50:00 Test Item Value Reference Range Interpretation Comments Etoh (%) (test code = Etoh (%)) no gt [facility] CenterEfmgboyMTWGLDQHSB6031-02-24 04:50:00 Test Item Value Reference Range Interpretation Comments Salicylate Lvl (test no gt See_Comment [Autom ated message] The code = Salicylate Lvl) syste m which generated this result tra nsmitted reference range : <=30.0. The reference r tiesha was not used to int erpret this result as normal/abnormal . [facility] CenterPowerPot VSXGMUV3084-12-24 02:50:00 Test Item Value Reference Range Interpretation Comments CK MB Index (test 0.6 See_Comment [Automate d message] The code = CK MB Index) system w [facility] generated this result transmit lani reference range : <=2.5. The reference range was not used to interpr et this result as derek l/abnormal. [facility] CenterPowerPot NWMJDSM9083-98-80 02:50:00 Test Item Value Reference Range Interpretation Comments Troponin-I (test code 0.03 See_Comment [Auto mated message] The = Troponin-I) system which g enerated this result transmit lani reference range : <=0.40. The reference r tiesha was not used to interpr et this result as derek l/abnormal. [facility] TylerCARDIAC AGRBYDG7545-91-46 02:50:00 Test Item Value Reference Range Interpretation Comments CK MB (test code = CK MB) 20.8 0.5-3.6 [facility] [id number] 02:50:00 Test Item Value Reference Range Interpretation Comments Magnesium Lvl (test code = Magnesium 2.4 1.8-2.4 Lvl) [facility] TYOMN2830-62-25 02:50:00 Test Item Value Reference Range Interpretation Comments Lipase Lvl (test code = Lipase Lvl) 87 73-393 [facility]2017-05-04 02:50:00 Test Item Value Reference Range Interpretation Comments B/C Ratio (test code = B/C Ratio) 24 6-25 [facility]2017-05-04 02:50:00 Test Item Value Reference Range Interpretation Comments Total Protein (test code = Total 7.4 6.4-8.4 Protein) [facility]2017-05-04 02:50:00 Test Item Value Reference Range Interpretation Comments Bili Total (test code = Bili Total) 1.5 0.2-1.3 [facility]2017-05-04 02:50:00 Test Item Value Reference Range Interpretation Comments Alk Phos (test code = Alk Phos) 65 39-136 [facility]2017-05-04 02:50:00 Test Item Value Reference Range Interpretation Comments Globulin (test code = Globulin) 3.4 2.7-4.2 [facility]2017-05-04 02:50:00 Test Item Value Reference Range Interpretation Comments A/G Ratio (test code = A/G Ratio) 1.2 0.7-1.6 [facility]2017-05-04 02:50:00 Test Item Value Reference Range Interpretation Comments ALT (test code = ALT) 136 See_Comment [Auto mated message] The system which ge nerated this result transmit lani reference range : <=65. The reference range was not used to interpr et this result as derek l/abnormal. [facility] TylerFederal Finance HKJKI3240-32-20 02:50:00 Test Item Value Reference Range Interpretation Comments Albumin Lvl (test code = Albumin Lvl) 4.0 3.5-5.0 [facility]2017-05-04 02:50:00 Test Item Value Reference Range Interpretation Comments AST (test code = AST) 188 See_Comment [Auto mated message] The system which ge nerated this result transmit lani reference range : <=37. The reference range was not used to interpr et this result as derek l/abnormal. [facility] CypressAdabkilJJNUZIVRVF9433-97-75 02:50:00 Test Item Value Reference Range Interpretation Comments Eosinophils (test code = 2.1 See_Comment [A utomated message] The Eosinophils) system which ge nerated this result tra nsmitted reference range : <=4.0. The reference r tiesha was not used to int erpret this result as normal/abnormal . [facility] CypressTqppzfmZSKOTJBEJR9875-11-70 02:50:00 Test Item Value Reference Range Interpretation Comments Segs-Bands # (test code = Segs-Bands #) 7.8 1.5-8.1 [facility] CypressQuxcyjzIBAOWCYAEM2035-24-68 02:50:00 Test Item Value Reference Range Interpretation Comments Basophils (test code = 0.7 See_Comment [Aut omated message] The Basophils) system which ge nerated this result tra nsmitted reference range : <=1.0. The reference r tiesha was not used to int erpret this result as normal/abnormal . [facility] CypressCvyfidqMSFQGQDOCZ1129-93-29 02:50:00 Test Item Value Reference Range Interpretation Comments Monocytes (test code = Monocytes) 8.5 2.0-12.0 [facility] CypressBjmovfaWHCFPHFBCF6504-16-37 02:50:00 Test Item Value Reference Range Interpretation Comments Monocytes # (test code 1.0 See_Comment [Aut omated message] The = Monocytes #) system which generated this result tra nsmitted reference range : <=0.8. The reference r tiesha was not used to int erpret this result as normal/abnormal . [facility] CypressFpcayjrYACYHABSQV1482-54-80 02:50:00 Test Item Value Reference Range Interpretation Comments Eosinophils # (test code 0.3 See_Comment [A utomated message] The = Eosinophils #) system whic h generated this result tra nsmitted reference range : <=0.5. The reference r tiesha was not used to int erpret this result as normal/abnormal . [facility] CypressKpshhqrVGKBGUOISV4488-49-82 02:50:00 Test Item Value Reference Range Interpretation Comments Lymphocytes # (test code = Lymphocytes 2.9 1.0-5.5 #) [facility] CypressZeasixuKEJUMKCJXF2726-67-28 02:50:00 Test Item Value Reference Range Interpretation Comments Lymphocytes (test code = Lymphocytes) 24.1 20.0-40.0 [facility] CypressPwlzjitFVEZRNXREP0072-43-72 02:50:00 Test Item Value Reference Range Interpretation Comments Segs (test code = Segs) 64.6 45.0-75.0 [facility] CypressPlkqywuCDCAAUWDYA7413-77-15 02:50:00 Test Item Value Reference Range Interpretation Comments Basophils # (test code 0.1 See_Comment [Aut omated message] The = Basophils #) system which generated this result tra nsmitted reference range : <=0.2. The reference r tiesha was not used to int erpret this result as normal/abnormal . [facility] CypressLfnjgpjSNSIKLRXDX7113-92-97 02:50:00 Test Item Value Reference Range Interpretation Comments MCV (test code = MCV) 88.9 80.0-94.0 [facility] CypressWskxldjBKGAKOMWSJ6617-10-62 02:50:00 Test Item Value Reference Range Interpretation Comments RDW (test code = RDW) 13.7 11.5-14.5 [facility] CypressBctdkpmAHGMQYYFSH4845-09-50 02:50:00 Test Item Value Reference Range Interpretation Comments MCHC (test code = MCHC) 33.6 32.0-36.0 [facility] CypressXbpuebqZUKBAJSPDP4227-32-97 02:50:00 Test Item Value Reference Range Interpretation Comments MCH (test code = MCH) 29.8 pg 27.0-31.0 [facility] CypressZtuyqhxJMEVLAOCCC9005-95-06 02:50:00 Test Item Value Reference Range Interpretation Comments Platelet (test code = Platelet) 203 133-450 [facility] CypressVfvqajaVFMZBSZDCV7439-46-89 02:50:00 Test Item Value Reference Range Interpretation Comments MPV (test code = MPV) 9.5 7.4-10.4 [facility] CypressDuwfhjpWRMRBREXDH2013-42-77 02:50:00 Test Item Value Reference Range Interpretation Comments RBC (test code = RBC) 4.98 4.70-6.10 [facility] CypressTtbubskAPCHKGVAMS8261-49-13 02:50:00 Test Item Value Reference Range Interpretation Comments WBC (test code = WBC) 12.0 3.7-10.4 [facility] TylerMxafbheQWMAUGUOMN5680-25-03 02:50:00 Test Item Value Reference Range Interpretation Comments Hct (test code = Hct) 44.3 42.0-54.0 [facility] TylerPleovavREQYXWVZQA9349-73-09 02:50:00 Test Item Value Reference Range Interpretation Comments Hgb (test code = Hgb) 14.9 14.0-18.0 [facility] TylerGIS Cloud PLEVOAN1050-36-06 02:50:00 Test Item Value Reference Range Interpretation Comments CK MB Index (test 0.6 See_Comment [Automate d message] The code = CK MB Index) system w [facility] generated this result transmit lani reference range : <=2.5. The reference range was not used to interpr et this result as derek l/abnormal. [facility] Tyler[facility] XDQZKOC0896-72-33 02:50:00 Test Item Value Reference Range Interpretation Comments Troponin-I (test code 0.03 See_Comment [Auto mated message] The = Troponin-I) system which g enerated this result transmit lani reference range : <=0.40. The reference r tiesha was not used to interpr et this result as derek l/abnormal. [facility] CenterPlay With Pictures / Hang[employer] TPDILFJ8205-10-13 02:50:00 Test Item Value Reference Range Interpretation Comments CK MB (test code = CK MB) 20.8 0.5-3.6 [facility] [employer]2017-05-04 02:50:00 Test Item Value Reference Range Interpretation Comments Magnesium Lvl (test code = Magnesium 2.4 1.8-2.4 Lvl) [facility] CenterCaskJDDHZ5377-89-50 02:50:00 Test Item Value Reference Range Interpretation Comments Lipase Lvl (test code = Lipase Lvl) 87 73-393 [facility] [employer]2017-05-04 02:50:00 Test Item Value Reference Range Interpretation Comments B/C Ratio (test code = B/C Ratio) 24 6-25 [facility] CenterCaskJEDGU3656-63-88 02:50:00 Test Item Value Reference Range Interpretation Comments Total Protein (test code = Total 7.4 6.4-8.4 Protein) [facility] CenterCaskUZDHY9150-58-89 02:50:00 Test Item Value Reference Range Interpretation Comments Bili Total (test code = Bili Total) 1.5 0.2-1.3 [facility]2017-05-04 02:50:00 Test Item Value Reference Range Interpretation Comments Alk Phos (test code = Alk Phos) 65 39-136 [facility]2017-05-04 02:50:00 Test Item Value Reference Range Interpretation Comments Globulin (test code = Globulin) 3.4 2.7-4.2 [place] 273747-05-04 02:50:00 Test Item Value Reference Range Interpretation Comments A/G Ratio (test code = A/G Ratio) 1.2 0.7-1.6 [place] [address]-05-04 02:50:00 Test Item Value Reference Range Interpretation Comments ALT (test code = ALT) 136 See_Comment [Auto mated message] The system which ge nerated this result transmit lani reference range : <=65. The reference range was not used to interpr et this result as derek l/abnormal. [facility]2017-05-04 02:50:00 Test Item Value Reference Range Interpretation Comments Albumin Lvl (test code = Albumin Lvl) 4.0 3.5-5.0 [facility]2017-05-04 02:50:00 Test Item Value Reference Range Interpretation Comments AST (test code = AST) 188 See_Comment [Auto mated message] The system which ge nerated this result transmit lani reference range : <=37. The reference range was not used to interpr et this result as derek l/abnormal. [facility] CypressSmbhmhxLRQLGDSDZG5816-59-15 02:50:00 Test Item Value Reference Range Interpretation Comments Eosinophils (test code = 2.1 See_Comment [A utomated message] The Eosinophils) system which ge nerated this result tra nsmitted reference range : <=4.0. The reference r tiesha was not used to int erpret this result as normal/abnormal . [place] [address]-05-04 02:50:00 Test Item Value Reference Range Interpretation Comments Segs-Bands # (test code = Segs-Bands #) 7.8 1.5-8.1 [place] [address]-05-04 02:50:00 Test Item Value Reference Range Interpretation Comments Basophils (test code = 0.7 See_Comment [Aut omated message] The Basophils) system which ge nerated this result tra nsmitted reference range : <=1.0. The reference r tiesha was not used to int erpret this result as normal/abnormal . [facility] CypressIbitgfhWOTDAGXBIG4730-88-70 02:50:00 Test Item Value Reference Range Interpretation Comments Monocytes (test code = Monocytes) 8.5 2.0-12.0 [facility] CypressNejipzpEACLEIFXUW3374-42-51 02:50:00 Test Item Value Reference Range Interpretation Comments Monocytes # (test code 1.0 See_Comment [Aut omated message] The = Monocytes #) system which generated this result tra nsmitted reference range : <=0.8. The reference r tiesha was not used to int erpret this result as normal/abnormal . [facility] CypressNmqctdaWUOQHABZMN1809-16-38 02:50:00 Test Item Value Reference Range Interpretation Comments Eosinophils # (test code 0.3 See_Comment [A utomated message] The = Eosinophils #) system whic h generated this result tra nsmitted reference range : <=0.5. The reference r tiesha was not used to int erpret this result as normal/abnormal . [facility] CypressOtthrkoZTELUBGHLA6636-99-83 02:50:00 Test Item Value Reference Range Interpretation Comments Lymphocytes # (test code = Lymphocytes 2.9 1.0-5.5 #) [facility] CypressWnwacosXERTLWVSVZ5711-17-71 02:50:00 Test Item Value Reference Range Interpretation Comments Lymphocytes (test code = Lymphocytes) 24.1 20.0-40.0 [facility] CypressBocvqntOTZODRJJAI4253-84-67 02:50:00 Test Item Value Reference Range Interpretation Comments Segs (test code = Segs) 64.6 45.0-75.0 [facility] CypressNupedmuZKQZKKYIMP7234-85-27 02:50:00 Test Item Value Reference Range Interpretation Comments Basophils # (test code 0.1 See_Comment [Aut omated message] The = Basophils #) system which generated this result tra nsmitted reference range : <=0.2. The reference r tiesha was not used to int erpret this result as normal/abnormal . [facility] CypressRouzxfhXONBGRBWRJ6454-36-69 02:50:00 Test Item Value Reference Range Interpretation Comments MCV (test code = MCV) 88.9 80.0-94.0 [facility] CypressKtcxnpzPAXXCZRQEO6087-59-37 02:50:00 Test Item Value Reference Range Interpretation Comments RDW (test code = RDW) 13.7 11.5-14.5 [facility] CypressGirqjzzLPQMDPCIVE9149-48-37 02:50:00 Test Item Value Reference Range Interpretation Comments MCHC (test code = MCHC) 33.6 32.0-36.0 [facility] CypressZvrjjrkQYYSDRICEI8753-61-24 02:50:00 Test Item Value Reference Range Interpretation Comments MCH (test code = MCH) 29.8 pg 27.0-31.0 [facility] CypressXbxurmjGLRSFOEYOM1813-68-15 02:50:00 Test Item Value Reference Range Interpretation Comments Platelet (test code = Platelet) 203 133-450 [facility] CypressGxwhjwsDCTETIGESM7189-95-77 02:50:00 Test Item Value Reference Range Interpretation Comments MPV (test code = MPV) 9.5 7.4-10.4 [facility] CypressGkapwtrQJTSHWMQKD0733-26-67 02:50:00 Test Item Value Reference Range Interpretation Comments RBC (test code = RBC) 4.98 4.70-6.10 [facility] CypressJxyveaiPBFCAAXKLY4843-68-29 02:50:00 Test Item Value Reference Range Interpretation Comments WBC (test code = WBC) 12.0 3.7-10.4 [facility] CypressVybmzjhRJBUZMKUFT0237-07-78 02:50:00 Test Item Value Reference Range Interpretation Comments Hct (test code = Hct) 44.3 42.0-54.0 [facility] CypressQycedahDLYXGIAMUY5837-44-10 02:50:00 Test Item Value Reference Range Interpretation Comments Hgb (test code = Hgb) 14.9 14.0-18.0 [facility]
[2022-08-31] MEDS ORDERED: HYDROCODONE/APAP 7.5/325 MG TAB ONE (18:10)
--- NOTE | 2022-08-31 19:08 | RAD REPORT ---
EXAM DESCRIPTION: US - Extremity Venous Uni Ltd - 08/31/2022 6:52 pm CLINICAL HISTORY: Pain COMPARISON: None. TECHNIQUE: Real-time sonographic evaluation of the right lower extremity deep venous system was perf ormed. FINDINGS: Normal compressibility, flow augmentation, phasic flow and spontaneous flow is identified in the right lower extremity deep venous system. No intraluminal filling defects seen. IMPRESSION: No DVT in the right lower extremity.
--- NOTE | 2022-08-31 19:28 | EDPHYS ---
Physician Documentation [facility] Name: Jose L Ruby Age: 61 yrs Sex: Male : 1960 Arrival Date: 08/31/2022 Time: 17:37 Bed 23 Private MD: Alber Shin ED Physician Marv Britton HPI: 08/31 18:05 This 61 yrs old Male presents to ER via Wheelchair with complaints of Knee swelling. cp 18:05 The patient presents with pain, that is chronic. The complaints affect the right knee. cp Onset: The symptoms/episode began/occurred and became worse 1 week(s) ago, now with swelling of lower leg. Associated signs and symptoms: Pertinent positives: calf tenderness, swelling, Pertinent negatives fever, warmth, weakness. Severity of symptoms: in the emergency department the symptoms are unchanged, despite home interventions. Patient reports pcp believes he has a torn meniscus of right knee. Historical: - Allergies: 17:59 No Known Allergies; ap3 - Home Meds: 17:59 None [Active]; ap3 - PMHx: 17:59 None; ap3 - PSHx: 17:59 ankle; ap3 - Immunization history:: Client reports receiving the 2nd dose of the Covid vaccine, Flu vaccine is not up to date. - Social history:: Smoking status: Patient reports the use of cigarette tobacco products, smokes one-half pack cigarettes per day. ROS: 18:10 Constitutional: Negative for body aches, chills, fever, poor PO intake. cp 18:10 Eyes: Negative for injury, pain, redness, and discharge. cp 18:10 ENT: Negative for drainage from ear(s), ear pain, sore throat, difficulty swallowing, difficulty handling secretions. 18:10 Cardiovascular: Negative for chest pain, palpitations. 18:10 Respiratory: Negative for cough, shortness of breath, wheezing. 18:10 Abdomen/GI: Negative for abdominal pain, vomiting, diarrhea, constipation. 18:10 Back: Negative for pain at rest, pain with movement. 18:10 MS/extremity: Positive for pain, swelling, tenderness, of the right lower leg and right calf and right knee, Negative for injury or acute deformity, decreased range of motion, paresthesias. 18:10 Skin: Negative for cellulitis, rash. 18:10 All other systems are negative. Exam: 18:15 Constitutional: The patient appears in no acute distress, alert, awake, non-toxic, well cp developed, well nourished, uncomfortable. 18:15 Head/Face: Normocephalic, atraumatic. cp 18:15 Chest/axilla: Inspection: normal. 18:15 Cardiovascular: Rate: tachycardic. 18:15 Respiratory: the patient does not display signs of respiratory distress, Respirations: normal, no use of accessory muscles, no retractions, labored breathing, is not present. 18:15 Abdomen/GI: Exam negative for discomfort, distension, guarding, Inspection: abdomen appears normal. 18:15 Back: pain, is absent, ROM is normal. 18:15 Musculoskeletal/extremity: Extremities: grossly normal except: noted in the right knee and right lower leg: swelling, tenderness, There is no evidence of erythema, Perfusion: the extremity is normally perfused throughout, the right leg Sensation intact. DVT Exam: no erythema, no increased warmth, pain, that is moderate, of the right leg, of the right lower leg, swelling, tenderness. 18:15 Neuro: Orientation: to person, place \T\ time. Mentation: is normal, Motor: moves all fours, strength is normal. Vital Signs: 17:58 BP 122 / 95; Pulse 102; Resp 18; Temp 98.5; Pulse Ox 96% ; Weight 117.93 kg; ap3 18:45 BP 111 / 79; Pulse 86; Resp 18; Pulse Ox 98% on R/A; kr3 19:51 BP 106 / 79; Pulse 80; Resp 18; Pulse Ox 97% on R/A; kr3 MDM: 17:47 Patient medically screened. cp 18:15 Differential diagnosis: dislocation, closed fracture, contusion, tendonitis, DVT, cp cellulitis. 19:25 Data reviewed: vital signs, nurses notes, radiologic studies, ultrasound. 19:25 I considered the following discharge prescriptions or medication management in the emergency department Medications were administered in the Emergency Department. See MAR. Test considered but Not performed: X-ray: knee. Counseling: I had a detailed discussion with the patient and/or guardian regarding: the historical points, exam findings, and any diagnostic results supporting the discharge/admit diagnosis, radiology results, the need for outpatient follow up, for definitive care, a orthopedic surgeon, to return to the emergency department if symptoms worsen or persist or if there are any questions or concerns that arise at home. Response to treatment: the patient's symptoms have mildly improved after treatment, and as a result, I will discharge patient. 08/31 18:02 Order name: US Extremity Venous Unilateral Ltd; Complete Time: 19:13 cp 08/31 19:14 Order name: Zoran Wrap; Complete Time: 19:29 cp Administered Medications: 18:08 Drug: Hydrocodone-Acetaminophen (7.5 mg-325 mg) 1 tabs Route: PO; kr3 19:51 Follow up: Response: No adverse reaction; RASS: Alert and Calm (0) kr3 19:24 CANCELLED (Physician Discretion): Ketorolac 30 mg IM once cp Disposition Summary: 08/31/22 19:27 Discharge Ordered Location: Home cp Problem: new cp Symptoms: have improved cp Condition: Stable cp Diagnosis - Pain in right lower leg cp - Pain in right knee cp - Synovial cyst of popliteal space [Anna], right knee cp Followup: cp - With: Ji Hernandez MD - When: 2 - 3 days - Reason: Recheck today's complaints Discharge Instructions: - Discharge Summary Sheet cp - Joint Pain cp - Anna Cyst cp - Musculoskeletal Pain cp Forms: - Medication Reconciliation Form cp - Thank You Letter cp - Antibiotic Education cp - Prescription Opioid Use cp Prescriptions: - Mobic 7.5 mg Oral Tablet - take 1 tablet by ORAL route once daily take with food; 20 tablet; Refills: 0, cp Product Selection Permitted - Tramadol 50 mg Oral Tablet - take 1 tablet by ORAL route every 8 hours as needed; 12 tablet; Refills: 0, cp Product Selection Permitted Addendum: 09/02/2022 10:28 Co-signature as Attending Physician, Marv Britton MD I reviewed the patient's care r n provided by the Advanced Practice Provider and agree with the diagnosis and treatment plan. Signatures: Dispatcher [employer] EDMarv Bolanos MD MD rn Page, Corey, PA PA cp Yeimi Cobb RN RN ap3 Adina Schaffer RN RN kr3 Corrections: (The following items were deleted from the chart) 08/31 19:24 19:24 Ketorolac 30 mg IM once ordered. cp cp 09/01 16:39 08/31 18:15 This 61 yrs old Male presents to ER via Wheelchair with complaints of Knee cp swelling. cp
--- NOTE | 2022-08-31 19:28 | ER ---
Nurse's Notes [facility] Name: Jose L Ruby Age: 61 yrs Sex: Male : 1960 Arrival Date: 08/31/2022 Time: 17:37 Bed 23 Private MD: Alber Shin Diagnosis: Pain in right lower leg;Pain in right knee;Synovial cyst of popliteal space [Anna], right knee Presentation: 08/31 17:58 Chief complaint: Patient states: he has been having right knee pain for approx a week, ap3 with increased swelling. patient called his PCP who instructed him to come to the ED for further evaluation. patient reports pain as 8/10 on the pain scale. Coronavirus screen: At this time, the client does not indicate any symptoms associated with coronavirus-19. Ebola Screen: No symptoms or risks identified at this time. Initial Sepsis Screen: Does the patient meet any 2 criteria? No. Patient's initial sepsis screen is negative. Does the patient have a suspected source of infection? No. Patient's initial sepsis screen is negative. Risk Assessment: Do you want to hurt yourself or someone else? Patient reports no desire to harm self or others. Onset of symptoms was August 24, 2022. 17:58 Method Of Arrival: Wheelchair ap3 17:58 Acuity: NGUYỄN 3 ap3 Triage Assessment: 18:00 General: Appears uncomfortable, Behavior is calm, cooperative, appropriate for age. ap3 Pain: Complains of pain in right calf and medial aspect of right knee Pain began gradually, over the last week. Neuro: Level of Consciousness is awake, alert, obeys commands, Oriented to person, place, time, situation. Cardiovascular: Patient's skin is warm and dry. Respiratory: Airway is patent Respiratory effort is even, unlabored, Respiratory pattern is regular, symmetrical. Derm:. Musculoskeletal: Swelling present in right calf and right knee. Historical: - Allergies: 17:59 No Known Allergies; ap3 - Home Meds: 17:59 None [Active]; ap3 - PMHx: 17:59 None; ap3 - PSHx: 17:59 ankle; ap3 - Immunization history:: Client reports receiving the 2nd dose of the Covid vaccine, Flu vaccine is not up to date. - Social history:: Smoking status: Patient reports the use of cigarette tobacco products, smokes one-half pack cigarettes per day. Screenin:00 Abuse screen: Denies threats or abuse. Nutritional screening: No deficits noted. ap3 Tuberculosis screening: No symptoms or risk factors identified. 19:52 [facility] ED Fall Risk Assessment (Adult) History of falling in the last 3 months, kr3 including since admission No falls in past 3 months (0 pts) Confusion or Disorientation No (0 pts) Intoxicated or Sedated No (0 pts) Impaired Gait No (0 pts) Mobility Assist Device Used No (0 pt) Altered Elimination No (0 pt) Score/Fall Risk Level 0 - 2 = Low Risk Oriented to surroundings, Maintained a safe environment, Educated pt \T\ family on fall prevention, incl call for assistance when getting out of bed, Assessed \T\ reinforced patient's understanding of fall precautions, Hourly rounding (assess needs \T\ fall precautionary measures) done. Assessment: 18:15 Reassessment: see triage note. kr3 19:25 Reassessment: No changes from previously documented assessment. Patient is alert, kr3 oriented x 3, equal unlabored respirations, skin warm/dry/pink. Vital Signs: 17:58 BP 122 / 95; Pulse 102; Resp 18; Temp 98.5; Pulse Ox 96% ; Weight 117.93 kg; ap3 18:45 BP 111 / 79; Pulse 86; Resp 18; Pulse Ox 98% on R/A; kr3 19:51 BP 106 / 79; Pulse 80; Resp 18; Pulse Ox 97% on R/A; kr3 ED Course: 17:37 Patient arrived in ED. mr 17:37 Alber Shin MD is Private Physician. mr 17:45 Adina Schaffer, PACO is Primary Nurse. kr3 17:45 Elías Peralta PA is PHCP. cp 17:45 Marv Britton MD is Attending Physician. cp 17:59 Triage completed. ap3 18:01 Arm band placed on right wrist. ap3 18:01 Patient has correct armband on for positive identification. Bed in low position. Call ap3 light in reach. Side rails up X 1. Pulse ox on. NIBP on. Door closed. Noise minimized. 18:54 US Extremity Venous Unilateral Ltd In Process Unspecified. EDMS 19:26 Ji Hernandez MD is Referral Physician. cp 19:52 No provider procedures requiring assistance completed. Patient did not have IV access kr3 during this emergency room visit. Administered Medications: 18:08 Drug: Hydrocodone-Acetaminophen (7.5 mg-325 mg) 1 tabs Route: PO; kr3 19:51 Follow up: Response: No adverse reaction; RASS: Alert and Calm (0) kr3 19:24 CANCELLED (Physician Discretion): Ketorolac 30 mg IM once cp Medication: 19:52 VIS not applicable for this client. kr3 Outcome: 19:27 Discharge ordered by . cp 19:52 Discharged to home ambulatory. kr3 19:52 Condition: stable 19:52 Discharge instructions given to patient, Instructed on discharge instructions, follow up and referral plans. medication usage, Demonstrated understanding of instructions, follow-up care, medications, Prescriptions given X 2. 19:52 Patient left the ED. kr3 Signatures: Dispatcher [employer] EDWA Desirae Penn mr Elías Peralta PA PA cp Yeimi Cobb RN RN ap3 Adina Schaffer RN RN kr3 Corrections: (The following items were deleted from the chart) 19:25 19:23 Reassessment: see triage note kr3 kr3
[2022-08-31 20:02] VITALS: TEMP 98.5
[2022-08-31 20:04] VITALS: BP 106/79; O2SAT 97
== END 2022-08-31 19:52 | disposition home or self-care (01) ==
LOC: ER 17:34
DX: M71.21 Synovial cyst of popliteal space [Baker], right knee (principal); M79.661 Pain in right lower leg; F17.210 Nicotine dependence, cigarettes, uncomplicated
CPT/HCPCS: 93971; 99284

== ENCOUNTER 2022-11-22 13:05 | Emergency (ER) | payer OTHER ==
--- OUTSIDE RECORDS SUMMARY | 2022-11-22 13:08 | XMS REPORT | Clinical Summary ---
:1960 Author Organization [facility] MD [facility] Address [address] [place] [address] Care Team Providers Name Role Phone Unavailable [...] Vaccination (#1) 04/23/1961 Results Not on fileafter 11/22/2021
--- OUTSIDE RECORDS SUMMARY | 2022-11-22 13:13 | XMS REPORT | Continuity of Care Document ---
:[address] [facility] t Address [address] [place] [address] [address] [place] [address] Care Team Providers Name Role Phone Vikki Kendrick MD Primary Care Physician Tammy Raymond Attending Clinician Unavailable SYSTEM, PROVIDER NOT IN Attending Clinician Unavailable MANINDER CRUZ Attending Clinician Unavailable CLAIR MENDOZA Attending Clinician Unavailable RODY HOGUE Attending Clinician Unavailable WHITNEY MOYA Attending Clinician Unavailable JESSE CHILDRESS Attending Clinician Unavailable Danae Luna Attending Clinician Danae Luna Admitting Clinician Payers Payer Name Policy Type Policy Number Effective Date Expiration Date Karine tao [facility] [id number] 2022 00:00:00 Problems Condition Condition Condition Status Onset Resolution Last Treating Co mments Source Name Details Category Date Date Treatment Clinician Date Prostatiti Prostatiti Disease Active U balbir s s 8-12 ity of 00:: MD [facility] Anxiety Anxiety Disease Active Univers disorder disorder 8-12 ity of 00:: MD Alessandro craig [facility] [place] Hyperchole Hyperchole Disease Active U balbir sterolemia sterolemia 8-12 it y of 00:00: MD Alessandro craig [facility] Tobacco Tobacco Disease Active Univers dependence dependence 6-30 it y of syndrome syndrome 00:00: [place] 00 MD [facility] COCAINE COCAINE Diagnosis Active 2017-07-01 Memoria ABUSE, ABUSE, 11-03 08:03:00 l RHABDOMYOL RHABDOMYOL 00:00: Cristofer ANAND, YIS, 00 HYPOKALEMI HYPOKALEMI Active 11/03/2016 [place] OTHER OTHER Diagnosis Active 2016-11-03 Mem oria Active 11-03 23:17:00 l 11/03/2016 00:00: Bandar craig 00 [facility] Osteoporos Osteoporos Disease Active M ethodi is with is with 09-23 st pathologic pathologic 00:00: Ho spita al al 00 l fracture fracture of ankle of ankle and foot and foot Hypogonadi Hypogonadi Disease Active M ethodi sm in male sm in male 09-23 st 00:00: Hospita 00 l Osteoporos Osteoporos Disease Active U nivers is is 3 ity of 00:00: [place] 00 MD Alessandro craig [facility] Plantar Plantar Disease Active Methodi fasciitis fasciitis 07-12 st 00:00: Hospita 00 l Arthritis Arthritis Disease Active Met hodi of ankle of ankle 02-01 st or foot, or foot, 00:00: Hospit a degenerati degenerati 00 l ve ve Obese Obese Disease Active Univers class II class II 3-20 ity of 00:00: [place] 00 MD Alessandro craig [facility] [id number] Anxiety Problem Active [facility] [id number] Testostero Problem Active C ommon 104 ne Spirit deficiency - CHI in male [facility] [id number] Body mass Problem Active Com mon index Spirit (BMI) of - CHI 34.0-34.9 St in adult [facility] [id number] Obstructiv Problem Active Com mon e sleep Spirit apnea - CHI syndrome [facility] [id number] Pure Problem Active Common hyperchole Spirit sterolemia - [facility] Deficiency Deficienc Problem Active 2016-11-09 Memoria of y of 00:30:23 l macronutri macronutri He mala entkarine ents (disorder) (disorder) Active Problem 11/09/2016 [facility] COCAINE COCAINE Diagnosis Active 2017-07-01 Memoria ABUSE, ABUSE, 08:03:00 l UNCOMPLICA UNCOMPLICA He rmtashi GARIBAY LANI Active [facility] RHABDOMYOL RHABDOMYO Diagnosis Active 2017-07-01 Memoria YSIS LYSIS 08:03:00 l Active GEOVANY craig [facility] HYPOKALEMI Diagnosis Active 2017-07-01 Memoria A HYPOKALEMI 08:03:00 l A Active [place] [facility] Allergies, Adverse Reactions, Alerts This patient has no known allergies or adverse reactions. Family History Family Member Diagnosis Comments Start Date Stop Date Source Natural mother Alzheimer's disease [facility] Social History Social Habit Start Date Stop Date Quantity Comments Source History of Tobacco [facility] - Use [facility] Gender identity [facility] Sexual orientation Method [facility] Alcohol intake 2021-03-18 2021-03-18 Current drinker Unive rsity of 00:00:00 00:00:00 of alcohol Jaron muñiz ([facility]) [facility] Tobacco use and 2021-01-28 2021-01-28 Former smokeless Uni versity of exposure 00:00:00 00:00:00 tobacco user Jaron Mckeon [facility] Cigarettes smoked 2021-01-28 2021-01-28 Univers ity of current (pack per 00:00:00 00:00:00 Jaron Carmichael ) - Reported Cancer Ce nter Cigarette 2021-01-28 2021-01-28 University of pack-years 00:00:00 00:00:00 Jaron muñiz [facility] Alcohol Comment 2020-12-31 2020-12-31 Reports drinking Uni versity of 00:00:00 00:00:00 1-2 drinks per Jaron austin [facility] History of Social 2019-02-19 2019-02-[address] function 00:00:00 00:00:00 Hospital Social History 2016-11-04 2016-11-04 [facility] frances 03:59:53 03:59:53 Sex Ass[birth year] At [birth year] Universit y of 00:00:00 00:00:00 Jaron muñiz [facility] Smoking Status Start Date Stop Date Source Former Smoker 2019-07-19 00:00:00 2019-07-19 00:00:00 Common S pirit - [facility] Ce nter Smokes tobacco daily 2018-05-09 00:00:00 [facility] Medications Ordered Filled Start Stop Current Ordering Indication Dosage Frequency Signature Comments Components Source Medication Medication Date Date Medication? Clinician (SIG) Name Name buPROPion 2020-07 Yes Ex-smoker 150mg Take 1 Univers (WELLBUTRIN 0-07 for less tablet it y of XL) 150 mg 00:00: than 1 year (150 mg) [place] 24 hr 00 by mouth tablet every Anderso morning. n [facility] buPROPion 2020-07 Yes Ex-smoker 150mg Take 1 Univers (WELLBUTRIN 0-07 for less tablet it y of XL) 150 mg 00:00: than 1 year (150 mg) [place] 24 hr 00 by mouth tablet every Anderso morning. n [facility] [place] gabapentin Yes Insomnia, Take one Univers (NEURONTIN) 03-11 not at HS for ity of 300 mg 00:00: otherwise first day [place] capsule 00 specified then may MD increase Anderso to 2-3 qHS [facility] [place] gabapentin Yes Insomnia, Take one Univers (NEURONTIN) 03-11 not at HS for ity of 300 mg 00:00: otherwise first day [place] capsule 00 specified then may MD increase Anderso to 2-3 qHS [facility] [place] nicotine Yes Tobacco Apply 1 Uni vers (NICODERM 9-02 dependence patch to ity of CQ) 21 00:00: syndrome skin and Matthew as mg/24 hr 00 change MD transdermal patch Anderso patch daily as n directed Cancer for Center tobacco cessation (alternate sites). NICORETTE 2 Yes Tobacco Chew and Univers mg gum 03-05 dependence park one ity of fruit chill 00:00: syndrome piece [place] 00 every 2h. MD Avoid Anderso acidic n beverages Cancer 5 min Center before, during & after nicotine Yes Tobacco Apply 1 Uni vers (NICODERM 9-02 dependence patch to ity of CQ) 21 00:00: syndrome skin and Matthew as mg/24 hr 00 change MD transdermal patch Anderso patch daily as n directed Cancer for Center tobacco cessation (alternate sites). NICORETTE 2 Yes Tobacco Chew and Univers mg gum 03-05 dependence park one ity of fruit chill 00:00: syndrome piece [place] 00 every 2h. MD Avoid [facility] acidic beverages [address] Center before, during & after docosahexae Yes 2000mg Take 2,000 Univers noic 8-12 mg by ity of acid/epa 10:22: mouth [place] (FISH OIL 45 daily. ORAL) [facility] docosahexae Yes 2000mg Take 2,000 Univers noic 8-12 mg by ity of acid/epa 10:22: mouth [place] (FISH OIL 45 daily. ORAL) [facility] Ciprofloxac Ciprofloxac 2020- No Tammy 1 tablet Common in HCl in HCl 07-19 [facility] 00:00: 00:00 - [facility]I 00 :00 [facility] Flomax Flomax 2020- No Tammy 1 capsule Co mmon 07-19 [facility] 00:00: 00:00 - CHI 00 :00 [facility] Niacin Niacin Yes Tammy 1 capsule Com mon Flush Free Flush Free 6-20 [facility] leticia 00:00: - [facility]I 00 [facility] BuPROPion BuPROPion Yes Tammy 1 tablet Common HCl ER (SR) HCl ER (SR) 5-07 [facility] in the Spirit 00:00: morning - CHI 00 [facility] pen needle, Yes [id number] For use Methodi diabetic 6-[address] (BD INSULIN 00:00: [facility] PEN NEEDLE 00 daily l UF MINI) 31 gauge x 3/16" needle pen needle, Yes [id number] For use Methodi diabetic 6-[address] (BD INSULIN 00:00: [facility] PEN NEEDLE 00 daily l UF MINI) 31 gauge x 3/16" needle tamsulosin Yes 0.4 mg = 1 M emoria 0.4 mg oral 5-06 cap, PO, l capsule 15:01: After [place] 00 Dinner, # 30 cap, 1 Refill(s), Pharmacy: [facility] [id number] Docusate Yes 100 mg = 1 Mem oria Sodium 100 5-06 cap, PO, l MG Oral 15:01: BID, # 20 Keerthi nn Capsule 00 cap, 0 Refill(s), Pharmacy: [facility] [id number] tamsulosin Yes 0.4 mg = 1 M emoria 0.4 mg oral 5-06 cap, PO, l capsule 15:01: After [place] 00 Dinner, # 30 cap, 1 Refill(s), Pharmacy: [facility] [place] [address] Docusate Yes 100 mg = 1 Mem oria Sodium 100 5-06 cap, PO, l MG Oral 15:01: BID, # 20 Keerthi nn Capsule 00 cap, 0 Refill(s), Pharmacy: [facility] tamsulosin Yes 0.4 mg = 1 M emoria 0.4 mg oral 5-06 cap, PO, l capsule 15:01: After [place] 00 Dinner, # 30 cap, 1 Refill(s), Pharmacy: [facility] [place] [address] Docusate Yes 100 mg = 1 Mem oria Sodium 100 5-06 cap, PO, l MG Oral 15:01: BID, # 20 Keerthi nn Capsule 00 cap, 0 Refill(s), Pharmacy: [facility] [place] [address] Protonix No Notes: Memoria 5-05 Tablet l 21:30: should not [place] 00 be chewed or crushed. (Same as: Protonix) Protonix No Notes: Memoria 5-05 Tablet l 21:30: should not [place] 00 be chewed or crushed. (Same as: Protonix) Protonix No Notes: Memoria 5-05 Tablet l 21:30: should not [place] 00 be chewed or crushed. (Same as: Protonix) D5W 1,000 No 1,000 mL, Mem oria mL + 5-05 Rate: 55 l potassium 20:01: ml/hr, Bandar n chloride 40 00 Infuse mEq over: 18.5 hr, Route: IV, Dosing Weight 99.091 kg, Total Volume: 1,020, Start date: 11/05/16 15:01:00 CDT, Duration: 30 day, Stop date: 12/05/16 15:00:00 CDT D5W 1,000 No 1,000 mL, Mem oria mL + 5-05 Rate: 55 l potassium 20:01: ml/hr, Bandar n chloride 40 00 Infuse mEq over: 18.5 hr, Route: IV, Dosing Weight 99.091 kg, Total Volume: 1,020, Start date: 11/05/16 15:01:00 CDT, Duration: 30 day, Stop date: 12/05/16 15:00:00 CDT D5W 1,000 No 1,000 mL, Mem oria mL + 5-05 Rate: 55 l potassium 20:01: ml/hr, Bandar n chloride 40 00 Infuse mEq over: 18.5 hr, Route: IV, Dosing Weight 99.091 kg, Total Volume: 1,020, Start date: 11/05/16 15:01:00 CDT, Duration: 30 day, Stop date: 12/05/16 15:00:00 CDT Flomax No Notes: Memoria 5-04 (Same As: l 22:00: Flomax) [place] "Do Not Crush" Lovenox No Notes: Memoria 5-04 (Same as: l 22:00: Lovenox) [place] Flomax No Notes: Memoria 5-04 (Same As: l 22:00: Flomax) [place] "Do Not Crush" Lovenox No Notes: Memoria 5-04 (Same as: l 22:00: Lovenox) [place] Flomax No Notes: Memoria 5-04 (Same As: l 22:00: Flomax) [place] "Do Not Crush" Lovenox No Notes: Memoria 5-04 (Same as: l 22:00: Lovenox) [place] 00 potassium No Notes: Memori a chloride 5-04 (Same as: l 17:59: K-Dur 20) [place] "Do Not Crush" With food and full glass of water potassium No Notes: Memori a chloride 5-04 (Same as: l 17:59: K-Dur 20) [place] "Do Not Crush" With food and full glass of water potassium No Notes: Memori a chloride 5-04 (Same as: l 17:59: K-Dur 20) [place] 00 "Do Not Crush" With food and [...] day, Stop date: 12/04/16 12:57:00 CDT D5W 1000 No 1,000 mL, Mem oria mL + 5-04 Rate: 100 l potassium 17:58: ml/hr, Bandar n chloride 40 00 Infuse mEq over: 10.2 hr, Route: IV, Dosing Weight 99.091 kg, Total Volume: 1,020, Start date: 11/04/16 12:58:00 CDT, Duration: 30 day, Stop date: 12/04/16 12:57:00 CDT Fish Oil No Notes: Memoria 5-04 (Same as: l 14:00: MaxEPA, [place] 3 fish oil ) Non-Formul deepti Drug Docusate No Notes: Memoria 5-04 (Same as: l 14:00: Colace) [place] 00 (Do Not Crush) Fish Oil No Notes: Memoria 5-04 (Same as: l 14:00: MaxEPA, [place] 00 [place] 3 fish oil ) Non-Formul deepti Drug Docusate No Notes: Memoria 5-04 (Same as: l 14:00: Colace) [place] 00 (Do Not Crush) Fish Oil No Notes: Memoria 5-04 (Same as: l 14:00: MaxEPA, [place] 00 [place] 3 fish oil ) Non-Formul deepti Drug Docusate No Notes: Memoria 5-04 (Same as: l 14:00: Colace) [place] 00 (Do Not Crush) Fish Oil Yes = 1 cap, Memor ia 5-04 PO, Daily, l 06:45: 0 [place] Refill(s) multivitami Yes 1 tab, Akhil asia n 5-04 Daily, 0 l 06:45: Refill(s) [place] Fish Oil Yes = 1 cap, Memor ia 5-04 PO, Daily, l 06:45: 0 [place] 00 Refill(s) multivitami Yes 1 tab, Akhil asia n 5-04 Daily, 0 l 06:45: Refill(s) [place] 00 Fish Oil Yes = 1 cap, [...] / 5-04 (Same as: l Hydrocodone 06:10: [place] Keerthi nn Bitartrate 00 325/5) Do [...] emoria en 5-04 Start l 06:10: date: [place] 11/04/16 1:10:00 CDT, Duration: 30 day, Stop date: 12/04/16 1:09:00 CDT Acetaminoph No Notes: Akhil asia en 325 MG / 5-04 (Same as: l Hydrocodone 06:10: [place] Keerthi nn Bitartrate 00 325/5) Do 5 MG Oral not exceed Tablet 4gm/day of acetaminop hen. Morphine No Notes: Memoria 5-04 (Same l 06:10: as:MORPhin [place] 00 e Sulfate) Ondansetron No 4 mg, Memor ia 5-04 Route: l 06:10: IVP, Q6H, [place] Dosing Weight 100, kg, PRN Nausea & Vomiting, Start date: 11/04/16 1:10:00 CDT, Duration: 30 day, Stop date: 12/04/16 1:09:00 CDT Acetaminoph No 100.4 F, M emoria en 5-04 Start l 06:10: date: [place] 11/04/16 1:10:00 CDT, Duration: 30 day, Stop date: 12/04/16 1:09:00 CDT Acetaminoph No Notes: Akhil asia en 325 MG / 5-04 (Same as: l Hydrocodone 06:10: [place] Keerthi nn Bitartrate 00 325/5) Do 5 MG Oral not exceed Tablet 4gm/day of acetaminop hen. Morphine No Notes: Memoria 5-04 (Same l 06:10: as:MORPhin [place] 00 e Sulfate) Ondansetron No 4 mg, Memor ia 5-04 Route: l 06:10: IVP, Q6H, [place] Dosing Weight 100, kg, PRN Nausea & Vomiting, Start date: 11/04/16 1:10:00 CDT, Duration: 30 day, Stop date: 12/04/16 1:09:00 CDT Ondansetron No Notes: Akhil asia 5-04 (Same as: l 04:51: Zofran) [place] 00 MEDICATION WASTE Product Size: 4 mg Product Wasted: ___ mg Acetaminoph No Notes: Do M emoria en 11-04 not exceed l 04:51: 4 gm/day. [place] 00 (Same as: Tylenol) Ondansetron No Notes: Akhil asia 5-04 (Same as: l 04:51: Zofran) [place] 00 MEDICATION WASTE Product Size: 4 mg Product Wasted: ___ mg Acetaminoph No Notes: Do M emoria en 11-04 not exceed l 04:51: 4 gm/day. [place] 00 (Same as: Tylenol) Ondansetron No Notes: Akhil asia 5-04 (Same as: l 04:51: Zofran) [place] 00 MEDICATION WASTE Product Size: 4 mg Product Wasted: ___ mg Acetaminoph No Notes: Do M emoria en 11-04 not exceed l 04:51: 4 gm/day. [place] 00 (Same as: Tylenol) potassium No Notes: [...] Memoria 5-04 (Same as: l 04:04: Ativan) [place] 00 Sodium 2017-0 No 1,000 mL, Memori a Chloride 5-04 Rate: 150 l 0.154 04:04: ml/hr, [place] MEQ/ML 00 Infuse Injectable over: 6.7 Solution hr, Route: IV, Dosing Weight 100 kg, Total Volume: 1,000, Start date: 11/03/16 23:04:00 CDT, Duration: 30 day, Stop date: 12/03/16 23:03:00 CDT Ativan 0 No Notes: Memoria 5-04 (Same as: l 04:04: Ativan) [place] Sodium 2016-0 No 1,000 mL, Memori a Chloride 5-04 Rate: 150 l 0.154 04:04: ml/hr, [place] MEQ/ML 00 Infuse Injectable over: 6.7 Solution hr, Route: IV, Dosing Weight 100 kg, Total Volume: 1,000, Start date: 11/03/16 23:04:00 CDT, Duration: 30 day, Stop date: 12/03/16 23:03:00 CDT Ativan 0 No Notes: Memoria 5-04 (Same as: l 04:04: Ativan) [place] Sodium 2016-0 No 2,000 mL, Memori a Chloride 5-04 2000 l 0.154 04:03: ml/hr, [place] MEQ/ML 00 Infuse Injectable Over: 1 Solution hr, Route: IV, 2,000, Drug form: INJ, ONCE, Priority: STAT, Dosing Weight 100 kg, Start date: 11/03/16 23:03:00 CDT, Duration: 1 doses or times, Stop date: 11/03/16 23:03:00 CDT Sodium 2017-0 No 2,000 mL, Memori a Chloride 5-04 2000 l 0.154 04:03: ml/hr, [place] MEQ/ML 00 Infuse Injectable Over: 1 Solution hr, Route: IV, 2,000, Drug form: INJ, ONCE, Priority: STAT, Dosing Weight 100 kg, Start date: 11/03/16 23:03:00 CDT, Duration: 1 doses or times, Stop date: 11/03/16 23:03:00 CDT Sodium 2017-0 No 2,000 mL, Memori a Chloride 5-04 2000 l 0.154 04:03: ml/hr, [place] MEQ/ML 00 Infuse Injectable Over: 1 Solution [...] 0.9% 5-04 Same as: l 02:36: BD [place] 00 Posiflush Sterile Saline No Notes: Memoria Flush 0.9% 5-04 Same as: l 02:36: BD [place] 00 Posiflush Sterile celecoxib Yes TAKE ONE Meth cleve (CeleBREX) 3-[address] 200 MG 00:00: [facility]OUTH [facility]osp[facility] capsule 00 EVERY DAY l celecoxib Yes TAKE ONE Meth cleve (CeleBREX) 3-[address] 200 MG 00:00: MOUTH Hospita capsule 00 EVERY DAY l Fish Oil Fish Oil Yes Tammy 2 capsule C ommon [facility] Flomax 0.4 Flomax 0.4 No 1{capsu QD Flomax 0.4 MG MG le} MG Immunizations Ordered Immunization Filled Immunization Date Status Commen ts Source Name Name Flucelvax - single Flucelvax - single 2019-04-21 Completed [facility] dose syringe dose syringe 08:56:00 - [facility] Vital Signs Vital Name Observation Time Observation Value Comments Source Respitory Rate 2016-11-06 12:54:00 Memori al [place] Systolic (mm Hg) 2016-11-06 12:54:00 Akhil asial [place] Diastolic (mm Hg) 2016-11-06 12:54:00 Mem orial [place] Heart Rate 2016-11-06 12:54:00 Memorial [place] Temperature Oral (F) 2016-11-06 12:54:00 98.3 F Memorial [place] Respitory Rate 2016-11-06 09:59:00 Memori al [place] Temperature Oral (F) 2016-11-06 09:59:00 98.8 F Memorial [place] Systolic (mm Hg) 2016-11-06 09:59:00 Akhil rial [place] Diastolic (mm Hg) 2016-11-06 09:59:00 Mem orial [place] Temperature Oral (F) 2016-11-06 06:20:00 98.9 F Memorial [place] Systolic (mm Hg) 2016-11-06 06:20:00 Akhil rial [place] Diastolic (mm Hg) 2016-11-06 06:20:00 Mem orial [place] Heart Rate 2016-11-06 06:20:00 Memorial [place] Respitory Rate 2016-11-06 00:24:00 Memori al [place] Heart Rate 2016-11-06 00:24:00 [facility] [place] BMI Calculated 2016-11-04 06:11:00 Memori al [place] Weight 2016-11-04 06:11:00 [facility] [place] Height 2016-11-04 06:11:00 172.72 cm Memorial [place] Weight 2016-11-04 02:24:00 [facility] [place] Procedures This patient has no known procedures. Plan of Care Planned Activity Planned Date Details Comments Source Future Scheduled 2022-10-07 COVID-19 VACCINE (#1) [facility] Test 18:18:59 [code = COVID-19 VACCINE (#1)] Future Scheduled 2022-10-07 COLONOSCOPY SCREENING [facility] Test 18:18:59 [code = COLONOSCOPY SCREENING] Future Scheduled 2022-10-07 SHINGLES VACCINES (1 Met [facility] Test 18:18:59 of 2) [code = SHINGLES VACCINES (1 of 2)] Future Scheduled 2022-10-07 INFLUENZA VACCINE Method is Hospital Test 18:18:59 [code = INFLUENZA VACCINE] Future Scheduled 2022-06-17 COVID-19 VACCINE (#1) [facility] Test 11:52:21 [code = COVID-19 VACCINE (#1)] Future Scheduled 2022-06-17 COLONOSCOPY SCREENING [facility] Test 11:52:21 [code = COLONOSCOPY SCREENING] Future Scheduled 2022-06-17 SHINGLES VACCINES (1 Met [facility] Hospital Test 11:52:21 of 2) [code = SHINGLES VACCINES (1 of 2)] Future Scheduled 2022-06-17 INFLUENZA VACCINE [facility] Hospital Test 11:52:21 [code = INFLUENZA VACCINE] Future Scheduled 2022-04-06 COVID-19 Vaccination [facility] [place] Test 08:23:01 (#1) [code = COVID-19 [facility] (#1)] Center Future Scheduled 2022-04-06 COVID-19 Vaccination [facility] [place] Test 08:23:01 (#1) [code = COVID-19 MD [facility] Vaccination (#1)] Center Encounters Start End Encounter Admission Attending Care Care Encounter Source Date/Time Date/Time Type Type Clinicians Facility Department ID 2022-09-13 Outpatient [facility] [id number] [place] 10:41:01 [id number] [facility] 2022-09-06 Outpatient [facility], STLMLC STLMLC [id number] Common 15:39:01 Tammy [id number] [facility] 2022-02-25 Outpatient [facility], STLMLC STLMLC [id number] Common 15:20:01 Tammy [id number] [facility] 2021-07-29 Outpatient [facility], STLMLC STLMLC [id number] Common 11:00:59 Tammy [id number] [facility] 2020-12-31 Outpatient SYSTEM, CHARLES SOTO [id number] 10:35:18 ALONDRA craig 2022-09-24 2022-09-24 Outpatient MANINDER CRUZ [facility] [id number] [place] 13:00:00 13:00:00 [facility] 2022-09-24 2022-09-24 Outpatient [facility] [id number] [place] 13:00:00 13:00:00 [facility] 2022-02-25 2022-02-25 (TEL) STLMLC STLC [id number] Co mmon 00:00:00 00:00:00 [facility] 2021-04-09 2021-04-09 Outpatient ROHINI MENDOZA MDA MDA [id number] 19:53:56 19:53:56 CLAIR craig 2021-03-18 2021-03-18 Outpatient ROHINI VELEZ MDA, MDA [id number] 09:28:32 09:28:32 Jessica LINDO 2021-03-05 2021-03-05 Outpatient ROHINI MENDOZA MDA MDA [id number] MD 21:05:45 21:05:45 CLAIR craig 2021-03-02 2021-03-02 Outpatient EL AGUSTIN MDA MDA [id number] MD 13:45:38 13:45:38 LINDO, And erso RODY n 2021-02-12 2021-02-12 Outpatient EL KELLY, MDA MDA [id number] MD 09:45:34 09:45:34 CLAIR craig 2021-02-11 2021-02-11 Outpatient EL AGUSTIN MDA MDA [id number] MD 10:33:14 10:33:14 LINDO, And erso RODY n 2021-02-04 2021-02-04 [facility] [id number] MD 08:24:32 08:24:32 WHITNEY craig 2021-01-28 2021-01-28 Outpatient EL AGUSTIN MDA MDA [id number] MD 10:52:29 10:52:29 BELGICA, And erso RODY n 2021-01-22 2021-01-22 Outpatient EL DARYAKA, MDA MDA [id number] MD 16:10:34 16:10:34 JESSE craig 2021-01-14 2021-01-14 Outpatient EL AGUSTIN MDA MDA [id number] MD 12:20:48 12:20:48 BELGICA, And erso RODY n 2021-01-07 2021-01-07 Outpatient EL AGUSTIN MDA MDA [id number] MD 10:27:02 10:27:02 BELGICA, And erso RODY n 2020-12-31 2020-12-31 Outpatient EL KITAKA, MDA MDA [id number] MD 10:21:37 10:21:37 JESSE craig 2020-12-31 2020-12-31 Outpatient EL AGUSTIN MDA MDA [id number] MD 10:21:29 10:21:29 LINDO, And erso RODY n 2019-07-19 2019-07-19 Out[facility] [id number] Common 09:00:00 09:00:[address] [facility] 2018-12-21 2018-12-21 Outpatient Mikhail [facility] [id number] Common 08:00:00 08:00:[address] [facility] 2018-12-13 2018-12-13 Outpatient Mikhail [facility] [id number] Common 15:54:00 15:54:[address] [facility] 2018-11-07 2018-11-07 Outpatient Mikhail [facility] [id number] Common 09:00:00 09:00:[address] [facility] 2016-11-04 2016-11-06 Inpatient nullFlavo [facility] [id number] Memoria 02:17:00 17:53:00 r [place] 00 l [facility] 2016-11-04 2016-11-06 Inpatient nullFlavo [facility] [id number] Memoria 02:17:00 17:53:00 r [place] 00 l [facility] 2016-11-03 2016-11-06 [id number] 21:17:00 12:53:00 Ohigbai 00 Results Test Description Test Time Test Comments Results Result Comments Source CARDIAC ENZYMES 2016-11-06 11:41:00 Test Item Value Reference Range Interpretation Comme nts Total CK (test code = Total CK) 199 12-191 [facility]2017-05-06 11:41:00 Test Item Value Reference Range Interpretation Comments eGFR (test code = eGFR) 104 [facility]2017-05-06 11:41:00 Test Item Value Reference Range Interpretation Comments Chloride Lvl (test code = Chloride Lvl) 111 95-109 [facility]2017-05-06 11:41:00 Test Item Value Reference Range Interpretation Comments CO2 (test code = CO2) 25 24-32 [facility]2017-05-06 11:41:00 Test Item Value Reference Range Interpretation Comments Potassium Lvl (test code = Potassium 4.1 3.5-5.1 Lvl) [facility]2017-05-06 11:41:00 Test Item Value Reference Range Interpretation Comments Calcium Lvl (test code = Calcium Lvl) 8.3 8.5-10.5 [facility] [id number] 11:41:00 Test Item Value Reference Range Interpretation Comments AGAP (test code = AGAP) 11.1 10.0-20.0 [facility]2017-05-06 11:41:00 Test Item Value Reference Range Interpretation Comments BUN (test code = BUN) 9 7-22 [facility]2017-05-06 11:41:00 Test Item Value Reference Range Interpretation Comments Creatinine Lvl (test code = Creatinine 0.74 0.50-1.40 Lvl) [facility]2017-05-06 11:41:00 Test Item Value Reference Range Interpretation Comments Glucose Lvl (test code = Glucose Lvl) 90 70-99 [facility]2017-05-06 11:41:00 Test Item Value Reference Range Interpretation Comments Sodium Lvl (test code = Sodium Lvl) 143 135-145 [facility]Fitocracy[facility] [id number] 11:41:00 Test Item Value Reference Range Interpretation Comments Total CK (test code = Total CK) 199 12-191 [facility]2017-05-06 11:41:00 Test Item Value Reference Range Interpretation Comments eGFR (test code = eGFR) 104 [facility]2017-05-06 11:41:00 Test Item Value Reference Range Interpretation Comments Chloride Lvl (test code = Chloride Lvl) 111 95-109 [facility] [id number] 11:41:00 Test Item Value Reference Range Interpretation Comments Total CK (test code = Total CK) 199 12-191 [facility] [id number] 11:41:00 Test Item Value Reference Range Interpretation Comments eGFR (test code = eGFR) 104 [facility] [id number] 11:41:00 Test Item Value Reference Range Interpretation Comments Chloride Lvl (test code = Chloride Lvl) 111 95-109 [facility] [id number] 11:41:00 Test Item Value Reference Range Interpretation Comments CO2 (test code = CO2) [facility] [id number] 11:41:00 Test Item Value Reference Range Interpretation Comments CO2 (test code = CO2) [facility]2017-05-06 11:41:00 Test Item Value Reference Range Interpretation Comments Potassium Lvl (test code = Potassium 4.1 3.5-5.1 Lvl) [facility]2017-05-06 11:41:00 Test Item Value Reference Range Interpretation Comments Calcium Lvl (test code = Calcium Lvl) 8.3 8.5-10.5 [facility]2017-05-06 11:41:00 Test Item Value Reference Range Interpretation Comments AGAP (test code = AGAP) 11.1 10.0-20.0 [facility]2017-05-06 11:41:00 Test Item Value Reference Range Interpretation Comments BUN (test code = BUN) 01-22 [facility]2017-05-06 11:41:00 Test Item Value Reference Range Interpretation Comments Creatinine Lvl (test code = Creatinine 0.74 0.50-1.40 Lvl) [facility]2017-05-06 11:41:00 Test Item Value Reference Range Interpretation Comments Glucose Lvl (test code = Glucose Lvl) 90 70-99 [facility]2017-05-06 11:41:00 Test Item Value Reference Range Interpretation Comments Sodium Lvl (test code = Sodium Lvl) 143 135-145 [facility]2017-05-06 11:41:00 Test Item Value Reference Range Interpretation Comments Potassium Lvl (test code = Potassium 4.1 3.5-5.1 Lvl) [facility]2017-05-06 11:41:00 Test Item Value Reference Range Interpretation Comments Calcium Lvl (test code = Calcium Lvl) 8.3 8.5-10.5 [facility]2017-05-06 11:41:00 Test Item Value Reference Range Interpretation Comments AGAP (test code = AGAP) 11.1 10.0-20.0 [facility]2017-05-06 11:41:00 Test Item Value Reference Range Interpretation Comments BUN (test code = BUN) 01-22 [facility]2017-05-06 11:41:00 Test Item Value Reference Range Interpretation Comments Creatinine Lvl (test code = Creatinine 0.74 0.50-1.40 Lvl) [facility]2017-05-06 11:41:00 Test Item Value Reference Range Interpretation Comments Glucose Lvl (test code = Glucose Lvl) 90 70-99 [facility] [place] [employer] [id number] 11:41:00 Test Item Value Reference Range Interpretation Comments Sodium Lvl (test code = Sodium Lvl) 143 135-145 [facility] [id number] 10:32:00 Test Item Value Reference Range Interpretation Comments Total CK (test code = Total CK) 476 12-191 [facility] [id number] 10:32:00 Test Item Value Reference Range Interpretation Comments Calcium Lvl (test code = Calcium Lvl) 8.2 8.5-10.5 [facility] [employer] [id number] 10:32:00 Test Item Value Reference Range Interpretation Comments CO2 (test code = CO2) 25 -32 [facility] [id number] 10:32:00 Test Item Value Reference Range Interpretation Comments Chloride Lvl (test code = Chloride Lvl) 113 95-109 [facility] [id number] 10:32:00 Test Item Value Reference Range Interpretation Comments Potassium Lvl (test code = Potassium 4.0 3.5-5.1 Lvl) [facility] [place] [employer] [id number] 10:32:00 Test Item Value Reference Range Interpretation Comments Sodium Lvl (test code = Sodium Lvl) 143 135-145 [facility] [id number] 10:32:00 Test Item Value Reference Range Interpretation Comments Creatinine Lvl (test code = Creatinine 0.77 0.50-1.40 Lvl) [facility] [id number] 10:32:00 Test Item Value Reference Range Interpretation Comments BUN (test code = BUN) 14 7-22 [facility] [id number] 10:32:00 Test Item Value Reference Range Interpretation Comments Glucose Lvl (test code = Glucose Lvl) 96 70-99 [facility] [id number] 10:32:00 Test Item Value Reference Range Interpretation Comments eGFR (test code = eGFR) 102 [facility] [id number] 10:32:00 Test Item Value Reference Range Interpretation Comments AGAP (test code = AGAP) 9.0 10.0-20.0 [facility] 10:32:00 Test Item Value Reference Range Interpretation Comments Total CK (test code = Total CK) 476 [facility]2017-05-05 10:32:00 Test Item Value Reference Range Interpretation Comments Calcium Lvl (test code = Calcium Lvl) 8.2 8.5-10.5 [facility] [id number] 10:32:00 Test Item Value Reference Range Interpretation Comments CO2 (test code = CO2) 25 24-32 [facility] [id number] 10:32:00 Test Item Value Reference Range Interpretation Comments Chloride Lvl (test code = Chloride Lvl) 113 95-109 [facility] [id number] 10:32:00 Test Item Value Reference Range Interpretation Comments Potassium Lvl (test code = Potassium 4.0 3.5-5.1 Lvl) [facility] [id number] 10:32:00 Test Item Value Reference Range Interpretation Comments Sodium Lvl (test code = Sodium Lvl) 143 135-145 [facility]2017-05-05 10:32:00 Test Item Value Reference Range Interpretation Comments Creatinine Lvl (test code = Creatinine 0.77 0.50-1.40 Lvl) [facility] [id number] 10:32:00 Test Item Value Reference Range Interpretation Comments BUN (test code = BUN) 14 7-22 [facility]2017-05-05 10:32:00 Test Item Value Reference Range Interpretation Comments Glucose Lvl (test code = Glucose Lvl) 96 70-99 [facility]2017-05-05 10:32:00 Test Item Value Reference Range Interpretation Comments eGFR (test code = eGFR) 102 [facility]2017-05-05 10:32:00 Test Item Value Reference Range Interpretation Comments AGAP (test code = AGAP) 9.0 10.0-20.0 [facility] CenterCARDIAC [id number] 10:32:00 Test Item Value Reference Range Interpretation Comments Total CK (test code = Total CK) 476 12191 [facility] [id number] 10:32:00 Test Item Value Reference Range Interpretation Comments Calcium Lvl (test code = Calcium Lvl) 8.2 8.5-10.5 [facility]2017-05-05 10:32:00 Test Item Value Reference Range Interpretation Comments CO2 (test code = CO2) 25 24-32 [facility]2017-05-05 10:32:00 Test Item Value Reference Range Interpretation Comments Chloride Lvl (test code = Chloride Lvl) 113 95-109 [facility]2017-05-05 10:32:00 Test Item Value Reference Range Interpretation Comments Potassium Lvl (test code = Potassium 4.0 3.5-5.1 Lvl) [facility]2017-05-05 10:32:00 Test Item Value Reference Range Interpretation Comments Sodium Lvl (test code = Sodium Lvl) 143 135-145 [facility]2017-05-05 10:32:00 Test Item Value Reference Range Interpretation Comments Creatinine Lvl (test code = Creatinine 0.77 0.50-1.40 Lvl) [facility]2017-05-05 10:32:00 Test Item Value Reference Range Interpretation Comments BUN (test code = BUN) 14 7-22 [facility]2017-05-05 10:32:00 Test Item Value Reference Range Interpretation Comments Glucose Lvl (test code = Glucose Lvl) 96 70-99 [facility]2017-05-05 10:32:00 Test Item Value Reference Range Interpretation Comments eGFR (test code = eGFR) 102 [facility]2017-05-05 10:32:00 Test Item Value Reference Range Interpretation Comments AGAP (test code = AGAP) 9.0 10.0-20.0 [facility] [id number] 16:45:00 Test Item Value Reference Range Interpretation Comments Hep A IgM (test code Negative *NA*(11/04/16 = Hep A IgM) 11:45 AM) [facility] [id number] 16:45:00 Test Item Value Reference Range Interpretation Comments Hep Bs Ag (test code Negative *NA*(11/04/16 = Hep Bs Ag) 11:45 AM) [facility] [id number] 16:45:00 Test Item Value Reference Range Interpretation Comments CK MB Index (test 0.7 See_Comment [Automate d message] The code = CK MB Index) system w [facility] generated this result transmit lani reference range : <=2.5. The reference range was not used to interpr et this result as derek l/abnormal. [facility] [employer] [id number] 16:45:00 Test Item Value Reference Range Interpretation Comments CK MB (test code = CK MB) 7.9 0.5-3.6 [facility] [id number] 16:45:00 Test Item Value Reference Range Interpretation Comments Troponin-I (test code 0.02 See_Comment [Auto mated message] The = Troponin-I) system which g enerated this result transmit lani reference range : <=0.40. The reference r tiesha was not used to interpr et this result as derek l/abnormal. [facility]Work[facility] [id number] 16:45:00 Test Item Value Reference Range Interpretation Comments Total CK (test code = Total CK) 1210 12-191 [facility] [employer] [id number] 16:45:00 Test Item Value Reference Range Interpretation Comments eGFR (test code = eGFR) 100 [facility] [employer] [id number] 16:45:00 Test Item Value Reference Range Interpretation Comments Alk Phos (test code = Alk Phos) 56 39-136 [facility] [employer] [id number] 16:45:00 Test Item Value Reference Range Interpretation Comments Bili Total (test code = Bili Total) 0.5 0.2-1.3 [facility] [employer] [id number] 16:45:00 Test Item Value Reference Range Interpretation Comments AST (test code = AST) 89 See_Comment [Auto mated message] The system which ge nerated this result transmit lani reference range : <=37. The reference range was not used to interpr et this result as derek l/abnormal. [facility] [employer] [employer] [id number] 16:45:00 Test Item Value Reference Range Interpretation Comments ALT (test code = ALT) 91 See_Comment [Auto mated message] The system which ge nerated this result transmit lani reference range : <=65. The reference range was not used to interpr et this result as derek l/abnormal. [facility] [employer]2017-05-04 16:45:00 Test Item Value Reference Range Interpretation Comments A/G Ratio (test code = A/G Ratio) 1.0 0.7-1.6 [facility]2017-05-04 16:45:00 Test Item Value Reference Range Interpretation Comments Globulin (test code = Globulin) 2.9 2.7-4.2 [facility]2017-05-04 16:45:00 Test Item Value Reference Range Interpretation Comments Albumin Lvl (test code = Albumin Lvl) 2.9 3.5-5.0 [facility]2017-05-04 16:45:00 Test Item Value Reference Range Interpretation Comments B/C Ratio (test code = B/C Ratio) 22 6-25 [facility]2017-05-04 16:45:00 Test Item Value Reference Range Interpretation Comments Total Protein (test code = Total 5.8 6.4-8.4 Protein) [facility]2017-05-04 16:45:00 Test Item Value Reference Range Interpretation Comments Calcium Lvl (test code = Calcium Lvl) 7.8 8.5-10.5 [facility]2017-05-04 16:45:00 Test Item Value Reference Range Interpretation Comments BUN (test code = BUN) 18 7-22 [facility]2017-05-04 16:45:00 Test Item Value Reference Range Interpretation Comments Creatinine Lvl (test code = Creatinine 0.80 0.50-1.40 Lvl) [facility]2017-05-04 16:45:00 Test Item Value Reference Range Interpretation Comments Glucose Lvl (test code = Glucose Lvl) 100 70-99 [facility]2017-05-04 16:45:00 Test Item Value Reference Range Interpretation Comments CO2 (test code = CO2) 24 24-32 [facility]2017-05-04 16:45:00 Test Item Value Reference Range Interpretation Comments AGAP (test code = AGAP) 13.2 10.0-20.0 [facility]2017-05-04 16:45:00 Test Item Value Reference Range Interpretation Comments Potassium Lvl (test code = Potassium 3.2 3.5-5.1 Lvl) [facility]2017-05-04 16:45:00 Test Item Value Reference Range Interpretation Comments Chloride Lvl (test code = Chloride Lvl) 113 95-109 [facility]2017-05-04 16:45:00 Test Item Value Reference Range Interpretation Comments Sodium Lvl (test code = Sodium Lvl) 147 135-145 [facility] [id number] 16:45:00 Test Item Value Reference Range Interpretation Comments Hep C Ab (test code = Negative *NA*(11/04/16 Hep C Ab) 11:45 AM) [facility] [id number] 16:45:00 Test Item Value Reference Range Interpretation Comments Hep B Core IgM (test Negative *NA*(11/04/16 code = Hep B Core 11:45 AM) IgM) [facility] [id number] 16:45:00 Test Item Value Reference Range Interpretation Comments Hep A IgM (test code Negative *NA*(11/04/16 = Hep A IgM) 11:45 AM) [facility] [id number] 16:45:00 Test Item Value Reference Range Interpretation Comments Hep Bs Ag (test code Negative *NA*(11/04/16 = Hep Bs Ag) 11:45 AM) [facility] CenterWorkanaAC [id number] 16:45:00 Test Item Value Reference Range Interpretation Comments CK MB Index (test 0.7 See_Comment [Automate d message] The code = CK MB Index) system w [facility] generated this result transmit lani reference range : <=2.5. The reference range was not used to interpr et this result as derek l/abnormal. [facility] CenterEyestorm [id number] 16:45:00 Test Item Value Reference Range Interpretation Comments CK MB (test code = CK MB) 7.9 0.5-3.6 [facility]WorkanaAC [id number] 16:45:00 Test Item Value Reference Range Interpretation Comments Troponin-I (test code 0.02 See_Comment [Auto mated message] The = Troponin-I) system which g enerated this result transmit lani reference range : <=0.40. The reference r tiesha was not used to interpr et this result as derek l/abnormal. [facility] [employer] [id number] 16:45:00 Test Item Value Reference Range Interpretation Comments Total CK (test code = Total CK) 1210 12-191 [facility] [employer]CHE[employer] [id number] 16:45:00 Test Item Value Reference Range Interpretation Comments eGFR (test code = eGFR) 100 [facility]2017-05-04 16:45:00 Test Item Value Reference Range Interpretation Comments Alk Phos (test code = Alk Phos) 56 39-136 [facility]2017-05-04 16:45:00 Test Item Value Reference Range Interpretation Comments Bili Total (test code = Bili Total) 0.5 0.2-1.3 [facility]2017-05-04 16:45:00 Test Item Value Reference Range Interpretation Comments AST (test code = AST) 89 See_Comment [Auto mated message] The system which ge nerated this result transmit lani reference range : <=37. The reference range was not used to interpr et this result as derek l/abnormal. [facility]2017-05-04 16:45:00 Test Item Value Reference Range Interpretation Comments ALT (test code = ALT) 91 See_Comment [Auto mated message] The system which ge nerated this result transmit lani reference range : <=65. The reference range was not used to interpr et this result as derek l/abnormal. [facility]2017-05-04 16:45:00 Test Item Value Reference Range Interpretation Comments A/G Ratio (test code = A/G Ratio) 1.0 0.7-1.6 [facility]2017-05-04 16:45:00 Test Item Value Reference Range Interpretation Comments Globulin (test code = Globulin) 2.9 2.7-4.2 [facility]2017-05-04 16:45:00 Test Item Value Reference Range Interpretation Comments Albumin Lvl (test code = Albumin Lvl) 2.9 3.5-5.0 [facility]2017-05-04 16:45:00 Test Item Value Reference Range Interpretation Comments B/C Ratio (test code = B/C Ratio) 22 6-25 [facility]2017-05-04 16:45:00 Test Item Value Reference Range Interpretation Comments Total Protein (test code = Total 5.8 6.4-8.4 Protein) [facility]2017-05-04 16:45:00 Test Item Value Reference Range Interpretation Comments Calcium Lvl (test code = Calcium Lvl) 7.8 8.5-10.5 [facility]2017-05-04 16:45:00 Test Item Value Reference Range Interpretation Comments BUN (test code = BUN) 18 7-22 [facility]2017-05-04 16:45:00 Test Item Value Reference Range Interpretation Comments Creatinine Lvl (test code = Creatinine 0.80 0.50-1.40 Lvl) [facility]2017-05-04 16:45:00 Test Item Value Reference Range Interpretation Comments Glucose Lvl (test code = Glucose Lvl) 100 70-99 [facility]2017-05-04 16:45:00 Test Item Value Reference Range Interpretation Comments CO2 (test code = CO2) 24 24-32 [facility]2017-05-04 16:45:00 Test Item Value Reference Range Interpretation Comments AGAP (test code = AGAP) 13.2 10.0-20.0 [facility]2017-05-04 16:45:00 Test Item Value Reference Range Interpretation Comments Potassium Lvl (test code = Potassium 3.2 3.5-5.1 Lvl) [facility]2017-05-04 16:45:00 Test Item Value Reference Range Interpretation Comments Chloride Lvl (test code = Chloride Lvl) 113 95-109 [facility]2017-05-04 16:45:00 Test Item Value Reference Range Interpretation Comments Sodium Lvl (test code = Sodium Lvl) 147 135-145 [facility] [id number] 16:45:00 Test Item Value Reference Range Interpretation Comments Hep C Ab (test code = Negative *NA*(11/04/16 Hep C Ab) 11:45 AM) [facility] [id number] 16:45:00 Test Item Value Reference Range Interpretation Comments Hep B Core IgM (test Negative *NA*(11/04/16 code = Hep B Core 11:45 AM) IgM) [facility] CentralGtwavyaWNFXXIOLFA7498-47-25 16:45:00 Test Item Value Reference Range Interpretation Comments Hep A IgM (test code Negative *NA*(11/04/16 = Hep A IgM) 11:45 AM) [facility] CentralTgfnhxzWDGRWDWLZH5959-17-74 16:45:00 Test Item Value Reference Range Interpretation Comments Hep Bs Ag (test code Negative *NA*(11/04/16 = Hep Bs Ag) 11:45 AM) [facility] [employer]2017-05-04 16:45:00 Test Item Value Reference Range Interpretation Comments CK MB Index (test 0.7 See_Comment [Automate d message] The code = CK MB Index) system w [facility] generated this result transmit lani reference range : <=2.5. The reference range was not used to interpr et this result as derek l/abnormal. [employer]2017-05-04 16:45:00 Test Item Value Reference Range Interpretation Comments CK MB (test code = CK MB) 7.9 0.5-3.6 [facility] [employer]2017-05-04 16:45:00 Test Item Value Reference Range Interpretation Comments Troponin-I (test code 0.02 See_Comment [Auto mated message] The = Troponin-I) system which g enerated this result transmit lani reference range : <=0.40. The reference r tiesha was not used to interpr et this result as derek l/abnormal. [employer]2017-05-04 16:45:00 Test Item Value Reference Range Interpretation Comments Total CK (test code = Total CK) 1210 12-191 [facility]2017-05-04 16:45:00 Test Item Value Reference Range Interpretation Comments eGFR (test code = eGFR) 100 [facility] [employer]2017-05-04 16:45:00 Test Item Value Reference Range Interpretation Comments Alk Phos (test code = Alk Phos) 56 39-136 [facility]2017-05-04 16:45:00 Test Item Value Reference Range Interpretation Comments Bili Total (test code = Bili Total) 0.5 0.2-1.3 [facility] [employer]2017-05-04 16:45:00 Test Item Value Reference Range Interpretation Comments AST (test code = AST) 89 See_Comment [Auto mated message] The system which ge nerated this result transmit lani reference range : <=37. The reference range was not used to interpr et this result as derek l/abnormal. [facility]2017-05-04 16:45:00 Test Item Value Reference Range Interpretation Comments ALT (test code = ALT) 91 See_Comment [Auto mated message] The system which ge nerated this result transmit lani reference range : <=65. The reference range was not used to interpr et this result as derek l/abnormal. [facility]2017-05-04 16:45:00 Test Item Value Reference Range Interpretation Comments A/G Ratio (test code = A/G Ratio) 1.0 0.7-1.6 [facility]2017-05-04 16:45:00 Test Item Value Reference Range Interpretation Comments Globulin (test code = Globulin) 2.9 2.7-4.2 [facility]2017-05-04 16:45:00 Test Item Value Reference Range Interpretation Comments Albumin Lvl (test code = Albumin Lvl) 2.9 3.5-5.0 [facility]2017-05-04 16:45:00 Test Item Value Reference Range Interpretation Comments B/C Ratio (test code = B/C Ratio) 22 6-25 [facility]2017-05-04 16:45:00 Test Item Value Reference Range Interpretation Comments Total Protein (test code = Total 5.8 6.4-8.4 Protein) [facility]2017-05-04 16:45:00 Test Item Value Reference Range Interpretation Comments Calcium Lvl (test code = Calcium Lvl) 7.8 8.5-10.5 [facility]2017-05-04 16:45:00 Test Item Value Reference Range Interpretation Comments BUN (test code = BUN) 18 7-22 [facility]2017-05-04 16:45:00 Test Item Value Reference Range Interpretation Comments Creatinine Lvl (test code = Creatinine 0.80 0.50-1.40 Lvl) [facility]2017-05-04 16:45:00 Test Item Value Reference Range Interpretation Comments Glucose Lvl (test code = Glucose Lvl) 100 70-99 [facility]2017-05-04 16:45:00 Test Item Value Reference Range Interpretation Comments CO2 (test code = CO2) 24 24-32 [facility]2017-05-04 16:45:00 Test Item Value Reference Range Interpretation Comments AGAP (test code = AGAP) 13.2 10.0-20.0 [facility]2017-05-04 16:45:00 Test Item Value Reference Range Interpretation Comments Potassium Lvl (test code = Potassium 3.2 3.5-5.1 Lvl) [facility] [id number] 16:45:00 Test Item Value Reference Range Interpretation Comments Chloride Lvl (test code = Chloride Lvl) 113 95-109 [facility]annCHE[facility] [id number] 16:45:00 Test Item Value Reference Range Interpretation Comments Sodium Lvl (test code = Sodium Lvl) 147 135-145 [facility] GehfjaaNXJNMCMPYY8210-67-13 16:45:00 Test Item Value Reference Range Interpretation Comments Hep C Ab (test code = Negative *NA*(11/04/16 Hep C Ab) 11:45 AM) [facility] NadwosnIKLUNDNEGU7923-96-73 16:45:00 Test Item Value Reference Range Interpretation Comments Hep B Core IgM (test Negative *NA*(11/04/16 code = Hep B Core 11:45 AM) IgM) [facility]annDR[facility] [id number] 16:06:00 Test Item Value Reference Range Interpretation Comments U Cocaine Scr (test Positive *ABN*(11/04/16 code = U Cocaine Scr) 11:06 AM) [facility] [id number] 16:06:00 Test Item Value Reference Range Interpretation Comments U Angie Scr (test code Negative *NA*(11/04/16 = U Angie Scr) 11:06 AM) [facility] [id number] 16:06:00 Test Item Value Reference Range Interpretation Comments U Benzodia Scr (test Negative *NA*(11/04/16 code = U Benzodia Scr) 11:06 AM) [facility] [id number] 16:06:00 Test Item Value Reference Range Interpretation Comments UDS Note (test code = See Note (11/04/16 11:06 UDS Note) AM) [facility] [id number] 16:06:00 Test Item Value Reference Range Interpretation Comments U Phencyc Scr (test Negative *NA*(11/04/16 code = U Phencyc Scr) 11:06 AM) [facility] [id number] 16:06:00 Test Item Value Reference Range Interpretation Comments U Cannab Scr (test Negative *NA*(11/04/16 code = U Cannab Scr) 11:06 AM) [facility] [id number] 16:06:00 Test Item Value Reference Range Interpretation Comments U Opiate Scr (test Negative *NA*(11/04/16 code = U Opiate Scr) 11:06 AM) [facility] [id number] 16:06:00 Test Item Value Reference Range Interpretation Comments U Amph Scr (test code Negative *NA*(11/04/16 = U Amph Scr) 11:06 AM) [facility] [id number] 16:06:00 Test Item Value Reference Range Interpretation Comments UA RBC (test None Seen See_Comment [Automated mes [place]] code = UA RBC) (11/04/16 11:06 [facility]) generated this result transmitted ref erence range: <=2. The reference range was not used to int erpret this result as normal/abnormal . [facility] [id number] 16:06:00 Test Item Value Reference Range Interpretation Comments UA WBC (test code = UA WBC) 0-2 /HPF [facility] [id number] 16:06:00 Test Item Value Reference Range Interpretation Comments UA Sq Epi (test code = UA Sq Occasional /LPF Epi) [facility] [id number] 16:06:00 Test Item Value Reference Range Interpretation Comments UA Bacteria (test code = UA Occasional /HPF Bacteria) [facility] [id number] 16:06:00 Test Item Value Reference Range Interpretation Comments UA Mucus (test code = UA Mucus) Few /LPF [facility] [id number] 16:06:00 Test Item Value Reference Range Interpretation Comments Micro? (test code = Performed (11/04/16 11:06 Micro?) AM) [facility] [id number] 16:06:00 Test Item Value Reference Range Interpretation Comments UA Nitrite (test code Negative (11/04/16 11:06 = UA Nitrite) AM) [facility] [id number] 16:06:00 Test Item Value Reference Range Interpretation Comments UA Leuk Est (test Negative (11/04/16 11:06 code = UA Leuk Est) AM) [facility] [id number] 16:06:00 Test Item Value Reference Range Interpretation Comments UA Urobilinogen (test code = UA 4.0 0.1-1.0 Urobilinogen) [facility] [id number] 16:06:00 Test Item Value Reference Range Interpretation Comments UA Protein (test code = UA Protein) 30 mg/dL [facility] [id number] 16:06:00 Test Item Value Reference Range Interpretation Comments UA Glucose (test code Negative (11/04/16 11:06 = UA Glucose) AM) [facility] [id number] 16:06:00 Test Item Value Reference Range Interpretation Comments UA Spec Grav (test code = UA Spec 1.020 1 Grav) [facility] [id number] 16:06:00 Test Item Value Reference Range Interpretation Comments UA Color (test code = Yellow *NA*(11/04/16 UA Color) 11:06 AM) [facility] [id number] 16:06:00 Test Item Value Reference Range Interpretation Comments UA Turbidity (test code = Clear (11/04/16 11:06 UA Turbidity) AM) [facility] [id number] 16:06:00 Test Item Value Reference Range Interpretation Comments UA Bili (test code = Moderate 1*ABN*(11/04/16 UA Bili) 11:06 AM) [facility] [id number] 16:06:00 Test Item Value Reference Range Interpretation Comments UA Ketones (test code = UA Ketones) 40 mg/dL [facility] [id number] 16:06:00 Test Item Value Reference Range Interpretation Comments UA Blood (test code = Negative (11/04/16 11:06 UA Blood) AM) [facility] [id number] 16:06:00 Test Item Value Reference Range Interpretation Comments UA pH (test code = UA pH) 6.0 1 5.0-8.0 [facility] [id number] 16:06:00 Test Item Value Reference Range Interpretation Comments U Cocaine Scr (test Positive *ABN*(11/04/16 code = U Cocaine Scr) 11:06 AM) [facility] [id number] 16:06:00 Test Item Value Reference Range Interpretation Comments U Angie Scr (test code Negative *NA*(11/04/16 = U Angie Scr) 11:06 AM) [facility] [id number] 16:06:00 Test Item Value Reference Range Interpretation Comments U Benzodia Scr (test Negative *NA*(11/04/16 code = U Benzodia Scr) 11:06 AM) [facility] [id number] 16:06:00 Test Item Value Reference Range Interpretation Comments UDS Note (test code = See Note (11/04/16 11:06 UDS Note) AM) [facility] [id number] 16:06:00 Test Item Value Reference Range Interpretation Comments U Phencyc Scr (test Negative *NA*(11/04/16 code = U Phencyc Scr) 11:06 AM) [facility] [id number] 16:06:00 Test Item Value Reference Range Interpretation Comments U Cannab Scr (test Negative *NA*(11/04/16 code = U Cannab Scr) 11:06 AM) [facility] [id number] 16:06:00 Test Item Value Reference Range Interpretation Comments U Opiate Scr (test Negative *NA*(11/04/16 code = U Opiate Scr) 11:06 AM) [facility] [id number] 16:06:00 Test Item Value Reference Range Interpretation Comments U Amph Scr (test code Negative *NA*(11/04/16 = U Amph Scr) 11:06 AM) [facility] [id number] 16:06:00 Test Item Value Reference Range Interpretation Comments UA RBC (test None Seen See_Comment [Automated mes [place]] code = UA RBC) (11/04/16 11:06 The system w hich AM) generated this result transmitted ref erence range: <=2. The reference range was not used to int erpret this result as normal/abnormal . [facility] [id number] 16:06:00 Test Item Value Reference Range Interpretation Comments UA WBC (test code = UA WBC) 0-2 /HPF [facility] [id number] 16:06:00 Test Item Value Reference Range Interpretation Comments UA Sq Epi (test code = UA Sq Occasional /LPF Epi) [facility] [id number] 16:06:00 Test Item Value Reference Range Interpretation Comments UA Bacteria (test code = UA Occasional /HPF Bacteria) [facility] AND [id number] 16:06:00 Test Item Value Reference Range Interpretation Comments UA Mucus (test code = UA Mucus) Few /LPF [facility] AND [id number] 16:06:00 Test Item Value Reference Range Interpretation Comments Micro? (test code = Performed (11/04/16 11:06 Micro?) AM) [facility] AND [id number] 16:06:00 Test Item Value Reference Range Interpretation Comments UA Nitrite (test code Negative (11/04/16 11:06 = UA Nitrite) AM) [facility] AND [id number] 16:06:00 Test Item Value Reference Range Interpretation Comments UA Leuk Est (test Negative (11/04/16 11:06 code = UA Leuk Est) AM) [facility] AND [id number] 16:06:00 Test Item Value Reference Range Interpretation Comments UA Urobilinogen (test code = UA 4.0 0.1-1.0 Urobilinogen) [facility] AND [id number] 16:06:00 Test Item Value Reference Range Interpretation Comments UA Protein (test code = UA Protein) 30 mg/dL [facility] AND [id number] 16:06:00 Test Item Value Reference Range Interpretation Comments UA Glucose (test code Negative (11/04/16 11:06 = UA Glucose) AM) [facility] AND [id number] 16:06:00 Test Item Value Reference Range Interpretation Comments UA Spec Grav (test code = UA Spec 1.020 1 Grav) [facility] AND [id number] 16:06:00 Test Item Value Reference Range Interpretation Comments UA Color (test code = Yellow *NA*(11/04/16 UA Color) 11:06 AM) [facility] AND [id number] 16:06:00 Test Item Value Reference Range Interpretation Comments UA Turbidity (test code = Clear (11/04/16 11:06 UA Turbidity) AM) [facility] AND [id number] 16:06:00 Test Item Value Reference Range Interpretation Comments UA Bili (test code = Moderate 1*ABN*(11/04/16 UA Bili) 11:06 AM) [facility] [id number] 16:06:00 Test Item Value Reference Range Interpretation Comments UA Ketones (test code = UA Ketones) 40 mg/dL [facility] [id number] 16:06:00 Test Item Value Reference Range Interpretation Comments UA Blood (test code = Negative (11/04/16 11:06 UA Blood) AM) [facility] [id number] 16:06:00 Test Item Value Reference Range Interpretation Comments UA pH (test code = UA pH) 6.0 1 5.0-8.0 [facility] [id number] 16:06:00 Test Item Value Reference Range Interpretation Comments UA Glucose (test code Negative (11/04/16 11:06 = UA Glucose) AM) [facility] [id number] 16:06:00 Test Item Value Reference Range Interpretation Comments UA Spec Grav (test code = UA Spec 1.020 1 Grav) [facility] [id number] 16:06:00 Test Item Value Reference Range Interpretation Comments UA Color (test code = Yellow *NA*(11/04/16 UA Color) 11:06 AM) [facility] [id number] 16:06:00 Test Item Value Reference Range Interpretation Comments UA Turbidity (test code = Clear (11/04/16 11:06 UA Turbidity) AM) [facility] [id number] 16:06:00 Test Item Value Reference Range Interpretation Comments UA Bili (test code = Moderate 1*ABN*(11/04/16 UA Bili) 11:06 AM) [facility] [id number] 16:06:00 Test Item Value Reference Range Interpretation Comments UA Ketones (test code = UA Ketones) 40 mg/dL [facility] [id number] 16:06:00 Test Item Value Reference Range Interpretation Comments UA Blood (test code = Negative (11/04/16 11:06 UA Blood) AM) [facility] [id number] 16:06:00 Test Item Value Reference Range Interpretation Comments UA pH (test code = UA pH) 6.0 1 5.0-8.0 [facility] [id number] 16:06:00 Test Item Value Reference Range Interpretation Comments U Cocaine Scr (test Positive *ABN*(11/04/16 code = U Cocaine Scr) 11:06 AM) [facility] [id number] 16:06:00 Test Item Value Reference Range Interpretation Comments U Angei Scr (test code Negative *NA*(11/04/16 = U Angie Scr) 11:06 AM) [facility] [id number] 16:06:00 Test Item Value Reference Range Interpretation Comments U Benzodia Scr (test Negative *NA*(11/04/16 code = U Benzodia Scr) 11:06 AM) [facility] [id number] 16:06:00 Test Item Value Reference Range Interpretation Comments UDS Note (test code = See Note (11/04/16 11:06 UDS Note) AM) [facility] [id number] 16:06:00 Test Item Value Reference Range Interpretation Comments U Phencyc Scr (test Negative *NA*(11/04/16 code = U Phencyc Scr) 11:06 AM) [facility] [id number] 16:06:00 Test Item Value Reference Range Interpretation Comments U Cannab Scr (test Negative *NA*(11/04/16 code = U Cannab Scr) 11:06 AM) [facility] [id number] 16:06:00 Test Item Value Reference Range Interpretation Comments U Opiate Scr (test Negative *NA*(11/04/16 code = U Opiate Scr) 11:06 AM) [facility] [id number] 16:06:00 Test Item Value Reference Range Interpretation Comments U Amph Scr (test code Negative *NA*(11/04/16 = U Amph Scr) 11:06 AM) [facility] [id number] 16:06:00 Test Item Value Reference Range Interpretation Comments UA RBC (test None Seen See_Comment [Automated mes [place]] code = UA RBC) (11/04/16 11:06 The system w hich AM) generated this result transmitted ref erence range: <=2. The reference range was not used to int erpret this result as normal/abnormal . [facility] [id number] 16:06:00 Test Item Value Reference Range Interpretation Comments UA WBC (test code = UA WBC) 0-2 /HPF [facility] AND [id number] 16:06:00 Test Item Value Reference Range Interpretation Comments UA Sq Epi (test code = UA Sq Occasional /LPF Epi) [facility] [id number] 16:06:00 Test Item Value Reference Range Interpretation Comments UA Bacteria (test code = UA Occasional /HPF Bacteria) [facility] AND [id number] 16:06:00 Test Item Value Reference Range Interpretation Comments UA Mucus (test code = UA Mucus) Few /LPF [facility] AND [id number] 16:06:00 Test Item Value Reference Range Interpretation Comments Micro? (test code = Performed (11/04/16 11:06 Micro?) AM) [facility] AND [id number] 16:06:00 Test Item Value Reference Range Interpretation Comments UA Nitrite (test code Negative (11/04/16 11:06 = UA Nitrite) AM) [facility] AND [id number] 16:06:00 Test Item Value Reference Range Interpretation Comments UA Leuk Est (test Negative (11/04/16 11:06 code = UA Leuk Est) AM) [facility] AND [id number] 16:06:00 Test Item Value Reference Range Interpretation Comments UA Urobilinogen (test code = UA 4.0 0.1-1.0 Urobilinogen) [facility] AND [id number] 16:06:00 Test Item Value Reference Range Interpretation Comments UA Protein (test code = UA Protein) 30 mg/dL [facility] [id number] 11:54:00 Test Item Value Reference Range Interpretation Comments Troponin-I (test code 0.03 See_Comment [Auto mated message] The = Troponin-I) system which g enerated this result transmit lani reference range : <=0.40. The reference r tiesha was not used to interpr et this result as derek l/abnormal. [facility] [id number] 11:54:00 Test Item Value Reference Range Interpretation Comments CK MB Index (test 0.7 See_Comment [Automate d message] The code = CK MB Index) system w [facility] generated this result transmit lani reference range : <=2.5. The reference range was not used to interpr et this result as derek l/abnormal. [id number] 11:54:00 Test Item Value Reference Range Interpretation Comments CK MB (test code = CK MB) 10.6 0.5-3.6 [id number] 11:54:00 Test Item Value Reference Range Interpretation Comments Basophils # (test code 0.1 See_Comment [Aut omated message] The = Basophils #) system which generated this result tra nsmitted reference range : <=0.2. The reference r tiesha was not used to int erpret this result as normal/abnormal . [facility] H[id number] 11:54:00 Test Item Value Reference Range Interpretation Comments Monocytes # (test code 0.7 See_Comment [Aut omated message] The = Monocytes #) system which generated this result tra nsmitted reference range : <=0.8. The reference r tiesha was not used to int erpret this result as normal/abnormal . [facility] Hospit[id number] 11:54:00 Test Item Value Reference Range Interpretation Comments Eosinophils # (test code 0.3 See_Comment [A utomated message] The = Eosinophils #) system whic h generated this result tra nsmitted reference range : <=0.5. The reference r tiesha was not used to int erpret this result as normal/abnormal . [facility] [id number] 11:54:00 Test Item Value Reference Range Interpretation Comments Eosinophils (test code = 3.3 See_Comment [A utomated message] The Eosinophils) system which ge nerated this result tra nsmitted reference range : <=4.0. The reference r tiesha was not used to int erpret this result as normal/abnormal . [facility] H[id number] 11:54:00 Test Item Value Reference Range Interpretation Comments Basophils (test code = 0.6 See_Comment [Aut omated message] The Basophils) system which ge nerated this result tra nsmitted reference range : <=1.0. The reference r tiesha was not used to int erpret this result as normal/abnormal . [facility] H[id number] 11:54:00 Test Item Value Reference Range Interpretation Comments Monocytes (test code = Monocytes) 8.3 2.0-12.0 [facility] HospitalJfcatlgBQOAOKUWPF3619-15-47 11:54:00 Test Item Value Reference Range Interpretation Comments Segs-Bands # (test code = Segs-Bands #) 5.6 1.5-8.1 [facility] HospitalUoaswzkOFHOUXFGWE8835-10-18 11:54:00 Test Item Value Reference Range Interpretation Comments Lymphocytes # (test code = Lymphocytes 2.2 1.0-5.5 #) [facility] H[id number] 11:54:00 Test Item Value Reference Range Interpretation Comments Lymphocytes (test code = Lymphocytes) 24.8 20.0-40.0 [facility] HospitalNwcspdwPWXBURWTEO2927-75-47 11:54:00 Test Item Value Reference Range Interpretation Comments Segs (test code = Segs) 63.0 45.0-75.0 [facility] HospitalSsqgyeuCDGBHOFBYC6452-66-65 11:54:00 Test Item Value Reference Range Interpretation Comments Hct (test code = Hct) 38.9 42.0-54.0 [facility] HospitalYqprucbXTGLDEZHUD1923-62-79 11:54:00 Test Item Value Reference Range Interpretation Comments MCV (test code = MCV) 88.8 80.0-94.0 [facility] HospitalEbgykjsABYKYWNYKH9558-37-81 11:54:00 Test Item Value Reference Range Interpretation Comments RBC (test code = RBC) 4.38 4.70-6.10 [facility] Hos[id number] 11:54:00 Test Item Value Reference Range Interpretation Comments Hgb (test code = Hgb) 13.2 14.0-18.0 [facility] HospitalBbgfajvBRNXKICJJJ8528-34-66 11:54:00 Test Item Value Reference Range Interpretation Comments WBC (test code = WBC) 8.9 3.7-10.4 [facility] HospitalMzjnmeqFWPPFULZAK3205-42-16 11:54:00 Test Item Value Reference Range Interpretation Comments Platelet (test code = Platelet) 179 133-450 [facility] HospitalOdatnrqLZDBJZEZNA0367-14-71 11:54:00 Test Item Value Reference Range Interpretation Comments MPV (test code = MPV) 9.5 7.4-10.4 [facility] HospitalSkjhvayFBSHOXJZAT2839-18-84 11:54:00 Test Item Value Reference Range Interpretation Comments MCHC (test code = MCHC) 34.0 32.0-36.0 [facility] HospitalEoyyiimTLVSTVTVHN2430-71-93 11:54:00 Test Item Value Reference Range Interpretation Comments RDW (test code = RDW) 14.0 11.5-14.5 [facility] HospitalRsttaxaALHBQBZDNE7410-80-06 11:54:00 Test Item Value Reference Range Interpretation Comments MCH (test code = MCH) 30.2 pg 27.0-31.0 [facility] [id number] 11:54:00 Test Item Value Reference Range Interpretation Comments Troponin-I (test code 0.03 See_Comment [Auto mated message] The = Troponin-I) system which g enerated this result transmit lani reference range : <=0.40. The reference r tiesha was not used to interpr et this result as derek l/abnormal. [facility] [id number] 11:54:00 Test Item Value Reference Range Interpretation Comments CK MB Index (test 0.7 See_Comment [Automate d message] The code = CK MB Index) system w [facility] generated this result transmit lani reference range : <=2.5. The reference range was not used to interpr et this result as derek l/abnormal. [facility] [id number] 11:54:00 Test Item Value Reference Range Interpretation Comments CK MB (test code = CK MB) 10.6 0.5-3.6 [facility] Hospit[id number] 11:54:00 Test Item Value Reference Range Interpretation Comments Basophils # (test code 0.1 See_Comment [Aut omated message] The = Basophils #) system which generated this result tra nsmitted reference range : <=0.2. The reference r tiesha was not used to int erpret this result as normal/abnormal . [facility]SfagpgjMWFAIBCUSW7179-27-28 11:54:00 Test Item Value Reference Range Interpretation Comments Monocytes # (test code 0.7 See_Comment [Aut omated message] The = Monocytes #) system which generated this result tra nsmitted reference range : <=0.8. The reference r tiesha was not used to int erpret this result as normal/abnormal . [facility] HospitalEdphvctLBNAFGJUYC3068-63-45 11:54:00 Test Item Value Reference Range Interpretation Comments Eosinophils # (test code 0.3 See_Comment [A utomated message] The = Eosinophils #) system whic h generated this result tra nsmitted reference range : <=0.5. The reference r tiesha was not used to int erpret this result as normal/abnormal . [facility] HospitalJwjjqodPWTUSWFWLZ4690-52-65 11:54:00 Test Item Value Reference Range Interpretation Comments Eosinophils (test code = 3.3 See_Comment [A utomated message] The Eosinophils) system which ge nerated this result tra nsmitted reference range : <=4.0. The reference r tiesha was not used to int erpret this result as normal/abnormal . [facility] HospitalClglwvyUUCSLIQNZA1426-93-89 11:54:00 Test Item Value Reference Range Interpretation Comments Basophils (test code = 0.6 See_Comment [Aut omated message] The Basophils) system which ge nerated this result tra nsmitted reference range : <=1.0. The reference r tiesha was not used to int erpret this result as normal/abnormal . [facility] HospitalJpftfvmWANFOURUXH4128-88-77 11:54:00 Test Item Value Reference Range Interpretation Comments Monocytes (test code = Monocytes) 8.3 2.0-12.0 [facility] HospitalCqgjgaeKJKZFZDHZD8394-87-65 11:54:00 Test Item Value Reference Range Interpretation Comments Segs-Bands # (test code = Segs-Bands #) 5.6 1.5-8.1 [facility] HospitalFtvntihVQOZOWKLIF6887-17-55 11:54:00 Test Item Value Reference Range Interpretation Comments Lymphocytes # (test code = Lymphocytes 2.2 1.0-5.5 #) [facility] HospitalEmvalmfOBPNPFVGOH3503-30-96 11:54:00 Test Item Value Reference Range Interpretation Comments Lymphocytes (test code = Lymphocytes) 24.8 20.0-40.0 [facility] HospitalCnotucvTNDJNWQFWM4887-23-52 11:54:00 Test Item Value Reference Range Interpretation Comments Segs (test code = Segs) 63.0 45.0-75.0 [facility] HospitalZlnwrfuRLPPRAUMGD7622-06-49 11:54:00 Test Item Value Reference Range Interpretation Comments Hct (test code = Hct) 38.9 42.0-54.0 [facility] HospitalKiqziteHOXGJUUYWE3542-71-82 11:54:00 Test Item Value Reference Range Interpretation Comments MCV (test code = MCV) 88.8 80.0-94.0 [facility]QekgivjYTJTELNYGS5139-09-29 11:54:00 Test Item Value Reference Range Interpretation Comments RBC (test code = RBC) 4.38 4.70-6.10 [facility] HospitalMirspmrLLELTQUVTA8064-07-51 11:54:00 Test Item Value Reference Range Interpretation Comments Hgb (test code = Hgb) 13.2 14.0-18.0 [facility] HospitalDtyreksPNQQNPJFNI5512-80-41 11:54:00 Test Item Value Reference Range Interpretation Comments WBC (test code = WBC) 8.9 3.7-10.4 [facility] HospitalPqowlfoKQIVPKNIDL3896-11-64 11:54:00 Test Item Value Reference Range Interpretation Comments Platelet (test code = Platelet) 179 133-450 [facility] [facility]DOJHE5020-61-12 11:54:00 Test Item Value Reference Range Interpretation Comments MPV (test code = MPV) 9.5 7.4-10.4 [facility]IgtirriCSRDUXUDVU6174-89-14 11:54:00 Test Item Value Reference Range Interpretation Comments MCHC (test code = MCHC) 34.0 32.0-36.0 [facility] HospitalHpiycmhCFLLUJJKGU5829-23-40 11:54:00 Test Item Value Reference Range Interpretation Comments RDW (test code = RDW) 14.0 11.5-14.5 [facility] HospitalGtejzyoCEFEEQVAJS0097-13-70 11:54:00 Test Item Value Reference Range Interpretation Comments MCH (test code = MCH) 30.2 pg 27.0-31.0 [facility] PYLJSGS7896-78-14 11:54:00 Test Item Value Reference Range Interpretation Comments Troponin-I (test code 0.03 See_Comment [Auto mated message] The = Troponin-I) system which g enerated this result transmit lani reference range : <=0.40. The reference r tiesha was not used to interpr et this result as derek l/abnormal. [facility] KDXVFHA0930-27-31 11:54:00 Test Item Value Reference Range Interpretation Comments CK MB Index (test 0.7 See_Comment [Automate d message] The code = CK MB Index) system w [facility] generated this result transmit lani reference range : <=2.5. The reference range was not used to interpr et this result as derek l/abnormal. [facility]2017-05-04 11:54:00 Test Item Value Reference Range Interpretation Comments CK MB (test code = CK MB) 10.6 0.5-3.6 [facility] HospitalQaslvasIPLYEPHYEB7602-82-21 11:54:00 Test Item Value Reference Range Interpretation Comments Basophils # (test code 0.1 See_Comment [Aut omated message] The = Basophils #) system which generated this result tra nsmitted reference range : <=0.2. The reference r tiesha was not used to int erpret this result as normal/abnormal . [facility] HospitalPqugqbsWMXESEZMTZ3711-29-33 11:54:00 Test Item Value Reference Range Interpretation Comments Monocytes # (test code 0.7 See_Comment [Aut omated message] The = Monocytes #) system which generated this result tra nsmitted reference range : <=0.8. The reference r tiesha was not used to int erpret this result as normal/abnormal . [facility] HospitalIohlkvxMLPMQDOGWX2888-73-21 11:54:00 Test Item Value Reference Range Interpretation Comments Eosinophils # (test code 0.3 See_Comment [A utomated message] The = Eosinophils #) system whic h generated this result tra nsmitted reference range : <=0.5. The reference r tiesha was not used to int erpret this result as normal/abnormal . [facility] HospitalXmbgyleVKFIQDKSTU0121-63-03 11:54:00 Test Item Value Reference Range Interpretation Comments Eosinophils (test code = 3.3 See_Comment [A utomated message] The Eosinophils) system which ge nerated this result tra nsmitted reference range : <=4.0. The reference r tiesha was not used to int erpret this result as normal/abnormal . [facility] HospitalIklmdvjYAPWMKGCVG0618-00-33 11:54:00 Test Item Value Reference Range Interpretation Comments Basophils (test code = 0.6 See_Comment [Aut omated message] The Basophils) system which ge nerated this result tra nsmitted reference range : <=1.0. The reference r tiesha was not used to int erpret this result as normal/abnormal . [facility] HospitalRmoanbzDXWFOPXTNI1327-30-30 11:54:00 Test Item Value Reference Range Interpretation Comments Monocytes (test code = Monocytes) 8.3 2.0-12.0 [facility] HospitalVfkxpwgGICNHNIXPF0682-41-70 11:54:00 Test Item Value Reference Range Interpretation Comments Segs-Bands # (test code = Segs-Bands #) 5.6 1.5-8.1 [facility] HospitalAxbafktPAKYFAORFE1850-66-33 11:54:00 Test Item Value Reference Range Interpretation Comments Lymphocytes # (test code = Lymphocytes 2.2 1.0-5.5 #) [facility] HospitalWmdpbyrTQZDHRGXAJ8536-88-46 11:54:00 Test Item Value Reference Range Interpretation Comments Lymphocytes (test code = Lymphocytes) 24.8 20.0-40.0 [facility] HospitalEjoqvijXJEADLSIQN5380-63-87 11:54:00 Test Item Value Reference Range Interpretation Comments Segs (test code = Segs) 63.0 45.0-75.0 [facility] HospitalFoaxrmcNENVXAIJFI7271-39-17 11:54:00 Test Item Value Reference Range Interpretation Comments Hct (test code = Hct) 38.9 42.0-54.0 [facility] HospitalNpxziogOEZAGCQCMQ5815-18-45 11:54:00 Test Item Value Reference Range Interpretation Comments MCV (test code = MCV) 88.8 80.0-94.0 [facility] HospitalJsgblvfSTSGGFUEOP7601-42-79 11:54:00 Test Item Value Reference Range Interpretation Comments RBC (test code = RBC) 4.38 4.70-6.10 [facility] HospitalOmfqepyKPJLAOVQES8701-95-71 11:54:00 Test Item Value Reference Range Interpretation Comments Hgb (test code = Hgb) 13.2 14.0-18.0 [facility] HospitalNvvnhluSGYDKJVDYI3430-90-45 11:54:00 Test Item Value Reference Range Interpretation Comments WBC (test code = WBC) 8.9 3.7-10.4 [facility] HospitalMcsmpayLFOJDEYNFZ0518-74-41 11:54:00 Test Item Value Reference Range Interpretation Comments Platelet (test code = Platelet) 179 133-450 [facility] HospitalOiftlbpEMCJZDYXQO0885-26-08 11:54:00 Test Item Value Reference Range Interpretation Comments MPV (test code = MPV) 9.5 7.4-10.4 [facility] HospitalZlxwaqbGJTJYYLFBL1696-29-89 11:54:00 Test Item Value Reference Range Interpretation Comments MCHC (test code = MCHC) 34.0 32.0-36.0 [facility] HospitalUnovcggGCMKBZLBFC7587-97-65 11:54:00 Test Item Value Reference Range Interpretation Comments RDW (test code = RDW) 14.0 11.5-14.5 [facility]StjqlspIYQWFUFTYE7005-51-45 11:54:00 Test Item Value Reference Range Interpretation Comments MCH (test code = MCH) 30.2 pg 27.0-31.0 [facility]ZbqtcktMWHLODWWUB3420-33-19 04:50:00 Test Item Value Reference Range Interpretation Comments Acetaminoph Lvl (test code = no gt 10-20 Acetaminoph Lvl) [facility] CenterRysijglTZQUUAYNEG6047-61-52 04:50:00 Test Item Value Reference Range Interpretation Comments Ethanol Lvl (test code = Ethanol Lvl) no [facility]WybmmzeYJXJPVHPHZ6690-85-58 04:50:00 Test Item Value Reference Range Interpretation Comments Etoh (%) (test code = Etoh (%)) no [facility] HospitalNixdbrsPAGNEAVPVT6634-40-84 04:50:00 Test Item Value Reference Range Interpretation Comments Salicylate Lvl (test no gt See_Comment [Autom ated message] The code = Salicylate Lvl) syste m which generated this result tra nsmitted reference range : <=30.0. The reference r tiesha was not used to int erpret this result as normal/abnormal . [facility] RegionalDtzjwatMOJYXYAEGA9849-80-35 04:50:00 Test Item Value Reference Range Interpretation Comments Acetaminoph Lvl (test code = no gt 10-20 Acetaminoph Lvl) [facility] RegionalMfljmmsNVLZLILYCN7545-60-14 04:50:00 Test Item Value Reference Range Interpretation Comments Ethanol Lvl (test code = Ethanol Lvl) no [facility] HospitalCrddleqMFENVIMYJM8325-70-70 04:50:00 Test Item Value Reference Range Interpretation Comments Etoh (%) (test code = Etoh (%)) no [facility] HospitalIitcqntJURYPVMEKP2300-86-11 04:50:00 Test Item Value Reference Range Interpretation Comments Salicylate Lvl (test no gt See_Comment [Autom ated message] The code = Salicylate Lvl) syste m which generated this result tra nsmitted reference range : <=30.0. The reference r tiesha was not used to int erpret this result as normal/abnormal . [facility] CenterLpaztqqUQVMZMKIVZ8430-01-09 04:50:00 Test Item Value Reference Range Interpretation Comments Acetaminoph Lvl (test code = no gt 10-20 Acetaminoph Lvl) [facility] CenterRulccplOYPQOHCRRM0992-75-89 04:50:00 Test Item Value Reference Range Interpretation Comments Ethanol Lvl (test code = Ethanol Lvl) no gt [facility] CenterOnwtspoAAPRVQWHZD3658-05-37 04:50:00 Test Item Value Reference Range Interpretation Comments Etoh (%) (test code = Etoh (%)) no gt [facility] CenterLaotphmEXZYQLFDCO1737-89-21 04:50:00 Test Item Value Reference Range Interpretation Comments Salicylate Lvl (test no gt See_Comment [Autom ated message] The code = Salicylate Lvl) syste m which generated this result tra nsmitted reference range : <=30.0. The reference r tiesha was not used to int erpret this result as normal/abnormal . [facility] 02:50:00 Test Item Value Reference Range Interpretation Comments CK MB Index (test 0.6 See_Comment [Automate d message] The code = CK MB Index) [facility] result transmit lani reference range : <=2.5. The reference range was not used to interpr et this result as derek l/abnormal. [facility] 02:50:00 Test Item Value Reference Range Interpretation Comments Troponin-I (test code 0.03 See_Comment [Auto mated message] The = Troponin-I) system which g enerated this result transmit lani reference range : <=0.40. The reference r tiesha was not used to interpr et this result as derek l/abnormal. [facility]2017-05-04 02:50:00 Test Item Value Reference Range Interpretation Comments CK MB (test code = CK MB) 20.8 0.5-3.6 [facility] [place] [employer] VQAFZ5988-77-04 02:50:00 Test Item Value Reference Range Interpretation Comments Magnesium Lvl (test code = Magnesium 2.4 1.8-2.4 Lvl) [facility] [place] [employer] DYDJB7088-27-35 02:50:00 Test Item Value Reference Range Interpretation Comments Lipase Lvl (test code = Lipase Lvl) 87 73-393 [facility]2017-05-04 02:50:00 Test Item Value Reference Range Interpretation Comments B/C Ratio (test code = B/C Ratio) 24 6-25 [facility]2017-05-04 02:50:00 Test Item Value Reference Range Interpretation Comments Total Protein (test code = Total 7.4 6.4-8.4 Protein) [facility]2017-05-04 02:50:00 Test Item Value Reference Range Interpretation Comments Bili Total (test code = Bili Total) 1.5 0.2-1.3 [facility]2017-05-04 02:50:00 Test Item Value Reference Range Interpretation Comments Alk Phos (test code = Alk Phos) 65 39-136 [facility]2017-05-04 02:50:00 Test Item Value Reference Range Interpretation Comments Globulin (test code = Globulin) 3.4 2.7-4.2 [facility]2017-05-04 02:50:00 Test Item Value Reference Range Interpretation Comments A/G Ratio (test code = A/G Ratio) 1.2 0.7-1.6 [facility]2017-05-04 02:50:00 Test Item Value Reference Range Interpretation Comments ALT (test code = ALT) 136 See_Comment [Auto mated message] The system which ge nerated this result transmit lani reference range : <=65. The reference range was not used to interpr et this result as derek l/abnormal. [facility]2017-05-04 02:50:00 Test Item Value Reference Range Interpretation Comments Albumin Lvl (test code = Albumin Lvl) 4.0 3.5-5.0 [facility]2017-05-04 02:50:00 Test Item Value Reference Range Interpretation Comments AST (test code = AST) 188 See_Comment [Auto mated message] The system which ge nerated this result transmit lani reference range : <=37. The reference range was not used to interpr et this result as derek l/abnormal. [facility] CenterUpotspqHRGTYFUSSL3082-32-34 02:50:00 Test Item Value Reference Range Interpretation Comments Eosinophils (test code = 2.1 See_Comment [A utomated message] The Eosinophils) system which ge nerated this result tra nsmitted reference range : <=4.0. The reference r tiesha was not used to int erpret this result as normal/abnormal . [facility] HospitalHyaptbsXCHPVRLLOL0397-60-42 02:50:00 Test Item Value Reference Range Interpretation Comments Segs-Bands # (test code = Segs-Bands #) 7.8 1.5-8.1 [facility] HospitalEapduviLUUKRDXHZU1241-12-20 02:50:00 Test Item Value Reference Range Interpretation Comments Basophils (test code = 0.7 See_Comment [Aut omated message] The Basophils) system which ge nerated this result tra nsmitted reference range : <=1.0. The reference r tiesha was not used to int erpret this result as normal/abnormal . [facility] HospitalPydgposXVIJIRZEGT8669-28-74 02:50:00 Test Item Value Reference Range Interpretation Comments Monocytes (test code = Monocytes) 8.5 2.0-12.0 [facility] HospitalElxcgmcUXRWOLOGYE5418-97-25 02:50:00 Test Item Value Reference Range Interpretation Comments Monocytes # (test code 1.0 See_Comment [Aut omated message] The = Monocytes #) system which generated this result tra nsmitted reference range : <=0.8. The reference r tiesha was not used to int erpret this result as normal/abnormal . [facility] HospitalAqziakjGEZDPSAHWF7322-13-63 02:50:00 Test Item Value Reference Range Interpretation Comments Eosinophils # (test code 0.3 See_Comment [A utomated message] The = Eosinophils #) system whic h generated this result tra nsmitted reference range : <=0.5. The reference r tiesha was not used to int erpret this result as normal/abnormal . [facility] HospitalQdvbwrvHLGTJOSGJM9984-77-15 02:50:00 Test Item Value Reference Range Interpretation Comments Lymphocytes # (test code = Lymphocytes 2.9 1.0-5.5 #) [facility] HospitalHtowqluNVVQUCTINY4108-78-44 02:50:00 Test Item Value Reference Range Interpretation Comments Lymphocytes (test code = Lymphocytes) 24.1 20.0-40.0 [facility] HospitalQhxeudlEOLTRIOYXH3210-61-77 02:50:00 Test Item Value Reference Range Interpretation Comments Segs (test code = Segs) 64.6 45.0-75.0 [facility] HospitalHzfbpplUBIPAFYKAA7561-18-31 02:50:00 Test Item Value Reference Range Interpretation Comments Basophils # (test code 0.1 See_Comment [Aut omated message] The = Basophils #) system which generated this result tra nsmitted reference range : <=0.2. The reference r tiesha was not used to int erpret this result as normal/abnormal . [facility] HospitalIijqvpxRKBEWTGEFI7332-78-88 02:50:00 Test Item Value Reference Range Interpretation Comments MCV (test code = MCV) 88.9 80.0-94.0 [facility] HospitalEifokfzEDZMSTUQMS7058-35-06 02:50:00 Test Item Value Reference Range Interpretation Comments RDW (test code = RDW) 13.7 11.5-14.5 [facility] HospitalXbnbujzHZSNVYYMFF6771-22-29 02:50:00 Test Item Value Reference Range Interpretation Comments MCHC (test code = MCHC) 33.6 32.0-36.0 [facility] HospitalQocgbdmODPDEBDULT8251-90-46 02:50:00 Test Item Value Reference Range Interpretation Comments MCH (test code = MCH) 29.8 pg 27.0-31.0 [facility] HospitalCcgcqxyVNMVVQZKAI8194-91-79 02:50:00 Test Item Value Reference Range Interpretation Comments Platelet (test code = Platelet) 203 133-450 [facility] HospitalXuspgzoJTWOTBVCHR0754-34-67 02:50:00 Test Item Value Reference Range Interpretation Comments MPV (test code = MPV) 9.5 7.4-10.4 [facility] HospitalCiockleVHSQOZMGGE2576-84-46 02:50:00 Test Item Value Reference Range Interpretation Comments RBC (test code = RBC) 4.98 4.70-6.10 [facility] HospitalPpyvjoqPLCCGSXEXX4868-64-12 02:50:00 Test Item Value Reference Range Interpretation Comments WBC (test code = WBC) 12.0 3.7-10.4 [facility] HospitalCskovixUWGQSNAEEB9854-30-19 02:50:00 Test Item Value Reference Range Interpretation Comments Hct (test code = Hct) 44.3 42.0-54.0 [facility] HospitalDgdhpwmTWPKHDAMWY0027-27-35 02:50:00 Test Item Value Reference Range Interpretation Comments Hgb (test code = Hgb) 14.9 14.0-18.0 [facility]CARDIAC LHLLIHD5765-40-81 02:50:00 Test Item Value Reference Range Interpretation Comments CK MB Index (test 0.6 See_Comment [Automate d message] The code = CK MB Index) system w [facility] generated this result transmit lani reference range : <=2.5. The reference range was not used to interpr et this result as derek l/abnormal. [facility]2017-05-04 02:50:00 Test Item Value Reference Range Interpretation Comments Troponin-I (test code 0.03 See_Comment [Auto mated message] The = Troponin-I) system which g enerated this result transmit lani reference range : <=0.40. The reference r tiesha was not used to interpr et this result as derek l/abnormal. [facility]2017-05-04 02:50:00 Test Item Value Reference Range Interpretation Comments CK MB (test code = CK MB) 20.8 0.5-3.6 [facility]2017-05-04 02:50:00 Test Item Value Reference Range Interpretation Comments Magnesium Lvl (test code = Magnesium 2.4 1.8-2.4 Lvl) [facility]2017-05-04 02:50:00 Test Item Value Reference Range Interpretation Comments Lipase Lvl (test code = Lipase Lvl) 87 73-393 [facility]2017-05-04 02:50:00 Test Item Value Reference Range Interpretation Comments B/C Ratio (test code = B/C Ratio) 24 6-25 [facility]2017-05-04 02:50:00 Test Item Value Reference Range Interpretation Comments Total Protein (test code = Total 7.4 6.4-8.4 Protein) [facility]2017-05-04 02:50:00 Test Item Value Reference Range Interpretation Comments Bili Total (test code = Bili Total) 1.5 0.2-1.3 [facility]2017-05-04 02:50:00 Test Item Value Reference Range Interpretation Comments Alk Phos (test code = Alk Phos) 65 39-136 [facility]2017-05-04 02:50:00 Test Item Value Reference Range Interpretation Comments Globulin (test code = Globulin) 3.4 2.7-4.2 [facility]2017-05-04 02:50:00 Test Item Value Reference Range Interpretation Comments A/G Ratio (test code = A/G Ratio) 1.2 0.7-1.6 [facility]2017-05-04 02:50:00 Test Item Value Reference Range Interpretation Comments ALT (test code = ALT) 136 See_Comment [Auto mated message] The system which ge nerated this result transmit lani reference range : <=65. The reference range was not used to interpr et this result as derek l/abnormal. [facility]2017-05-04 02:50:00 Test Item Value Reference Range Interpretation Comments Albumin Lvl (test code = Albumin Lvl) 4.0 3.5-5.0 [facility]2017-05-04 02:50:00 Test Item Value Reference Range Interpretation Comments AST (test code = AST) 188 See_Comment [Auto mated message] The system which ge nerated this result transmit lani reference range : <=37. The reference range was not used to interpr et this result as derek l/abnormal. [facility] HospitalJgutishDWHSXBNMSP4354-45-30 02:50:00 Test Item Value Reference Range Interpretation Comments Eosinophils (test code = 2.1 See_Comment [A utomated message] The Eosinophils) system which ge nerated this result tra nsmitted reference range : <=4.0. The reference r tiesha was not used to int erpret this result as normal/abnormal . [facility] HospitalUuwpizwCGCIWQGYVW7244-57-89 02:50:00 Test Item Value Reference Range Interpretation Comments Segs-Bands # (test code = Segs-Bands #) 7.8 1.5-8.1 [facility] HospitalVpngifdXEJCZSRPXW5013-49-68 02:50:00 Test Item Value Reference Range Interpretation Comments Basophils (test code = 0.7 See_Comment [Aut omated message] The Basophils) system which ge nerated this result tra nsmitted reference range : <=1.0. The reference r tiesha was not used to int erpret this result as normal/abnormal . [facility] HospitalAdxwahiVUBSYJLTVW9460-61-66 02:50:00 Test Item Value Reference Range Interpretation Comments Monocytes (test code = Monocytes) 8.5 2.0-12.0 [facility] HospitalDiyastvXJKBVASXDF1599-74-90 02:50:00 Test Item Value Reference Range Interpretation Comments Monocytes # (test code 1.0 See_Comment [Aut omated message] The = Monocytes #) system which generated this result tra nsmitted reference range : <=0.8. The reference r tiesha was not used to int erpret this result as normal/abnormal . [facility] HospitalSzkojjeUHJROSCPGN0860-46-30 02:50:00 Test Item Value Reference Range Interpretation Comments Eosinophils # (test code 0.3 See_Comment [A utomated message] The = Eosinophils #) system whic h generated this result tra nsmitted reference range : <=0.5. The reference r tiesha was not used to int erpret this result as normal/abnormal . [facility] HospitalIsiaszdEYCLYSAODY9792-97-18 02:50:00 Test Item Value Reference Range Interpretation Comments Lymphocytes # (test code = Lymphocytes 2.9 1.0-5.5 #) [facility] HospitalEaubbtmTZBTHRDKSY5883-79-79 02:50:00 Test Item Value Reference Range Interpretation Comments Lymphocytes (test code = Lymphocytes) 24.1 20.0-40.0 [facility] HospitalVjnpyiaSPRHFJSYYF6349-40-78 02:50:00 Test Item Value Reference Range Interpretation Comments Segs (test code = Segs) 64.6 45.0-75.0 [facility] HospitalCicqxetZBFKVUOKXF0426-54-17 02:50:00 Test Item Value Reference Range Interpretation Comments Basophils # (test code 0.1 See_Comment [Aut omated message] The = Basophils #) system which generated this result tra nsmitted reference range : <=0.2. The reference r tiesha was not used to int erpret this result as normal/abnormal . [facility] HospitalAfvxqabHVBJKAABAD6649-91-33 02:50:00 Test Item Value Reference Range Interpretation Comments MCV (test code = MCV) 88.9 80.0-94.0 [facility] HospitalQgfztdjQPFGDVUBEX6372-21-89 02:50:00 Test Item Value Reference Range Interpretation Comments RDW (test code = RDW) 13.7 11.5-14.5 [facility] HospitalMzfbypuFZPIIOMWLC2077-66-29 02:50:00 Test Item Value Reference Range Interpretation Comments MCHC (test code = MCHC) 33.6 32.0-36.0 [facility] HospitalGnljqhyLMACIJPHDA9319-80-18 02:50:00 Test Item Value Reference Range Interpretation Comments MCH (test code = MCH) 29.8 pg 27.0-31.0 [facility]ZrnykvkQBDZSBZPQO6238-04-52 02:50:00 Test Item Value Reference Range Interpretation Comments Platelet (test code = Platelet) 203 133-450 [facility] CenterQpwkxkxYMZOMGJTQW6700-48-06 02:50:00 Test Item Value Reference Range Interpretation Comments MPV (test code = MPV) 9.5 7.4-10.4 [facility]ItgmbgnTIVXVZQDYK6245-85-86 02:50:00 Test Item Value Reference Range Interpretation Comments RBC (test code = RBC) 4.98 4.70-6.10 [facility] CenterCjfufmdJOLTEHZZGH5499-53-66 02:50:00 Test Item Value Reference Range Interpretation Comments WBC (test code = WBC) 12.0 3.7-10.4 [facility] CenterVrrupmxTKJBYMMYTV8138-96-59 02:50:00 Test Item Value Reference Range Interpretation Comments Hct (test code = Hct) 44.3 42.0-54.0 [facility] HospitalSmpwpnoXQJVNDUMCB4452-91-53 02:50:00 Test Item Value Reference Range Interpretation Comments Hgb (test code = Hgb) 14.9 14.0-18.0 [facility] CenterCARNujiAC WYUIMRH6613-48-17 02:50:00 Test Item Value Reference Range Interpretation Comments CK MB Index (test 0.6 See_Comment [Automate d message] The code = CK MB Index) system w [facility] generated this result transmit lani reference range : <=2.5. The reference range was not used to interpr et this result as derek l/abnormal. [facility] XSWKWTD9155-21-92 02:50:00 Test Item Value Reference Range Interpretation Comments Troponin-I (test code 0.03 See_Comment [Auto mated message] The = Troponin-I) system which g enerated this result transmit lani reference range : <=0.40. The reference r tiesha was not used to interpr et this result as derek l/abnormal. [facility] CenterGood[facility] KVNNUDM3243-07-92 02:50:00 Test Item Value Reference Range Interpretation Comments CK MB (test code = CK MB) 20.8 0.5-3.6 [facility] CenterInception SciencesCHEM SEYWJ0259-98-25 02:50:00 Test Item Value Reference Range Interpretation Comments Magnesium Lvl (test code = Magnesium 2.4 1.8-2.4 Lvl) [facility] [facility] 02:[facility]00 Test Item Value Reference Range Interpretation Comments Lipase Lvl (test code = Lipase Lvl) 87 73-393 [facility]2017-05-04 02:50:00 Test Item Value Reference Range Interpretation Comments B/C Ratio (test code = B/C Ratio) 24 6-25 [facility]2017-05-04 02:50:00 Test Item Value Reference Range Interpretation Comments Total Protein (test code = Total 7.4 6.4-8.4 Protein) [facility]2017-05-04 02:50:00 Test Item Value Reference Range Interpretation Comments Bili Total (test code = Bili Total) 1.5 0.2-1.3 [facility]2017-05-04 02:50:00 Test Item Value Reference Range Interpretation Comments Alk Phos (test code = Alk Phos) 65 39-136 [facility]2017-05-04 02:50:00 Test Item Value Reference Range Interpretation Comments Globulin (test code = Globulin) 3.4 2.7-4.2 [facility]2017-05-04 02:50:00 Test Item Value Reference Range Interpretation Comments A/G Ratio (test code = A/G Ratio) 1.2 0.7-1.6 [facility]2017-05-04 02:50:00 Test Item Value Reference Range Interpretation Comments ALT (test code = ALT) 136 See_Comment [Auto mated message] The system which ge nerated this result transmit lani reference range : <=65. The reference range was not used to interpr et this result as derek l/abnormal. [facility]2017-05-04 02:50:00 Test Item Value Reference Range Interpretation Comments Albumin Lvl (test code = Albumin Lvl) 4.0 3.5-5.0 [facility]2017-05-04 02:50:00 Test Item Value Reference Range Interpretation Comments AST (test code = AST) 188 See_Comment [Auto mated message] The system which ge nerated this result transmit lani reference range : <=37. The reference range was not used to interpr et this result as derek l/abnormal. [facility]00 Test Item Value Reference Range Interpretation Comments Eosinophils (test code = 2.1 See_Comment [A utomated message] The Eosinophils) system which ge nerated this result tra nsmitted reference range : <=4.0. The reference r tiesha was not used to int erpret this result as normal/abnormal . [id number] 02:50:00 Test Item Value Reference Range Interpretation Comments Segs-Bands # (test code = Segs-Bands #) 7.8 1.5-8.1 [id number] 02:50:00 Test Item Value Reference Range Interpretation Comments Basophils (test code = 0.7 See_Comment [Aut omated message] The Basophils) system which ge nerated this result tra nsmitted reference range : <=1.0. The reference r tiesha was not used to int erpret this result as normal/abnormal . [facility]WgpjaqcRZLJRHBCEL1139-69-33 02:50:00 Test Item Value Reference Range Interpretation Comments Monocytes (test code = Monocytes) 8.5 2.0-12.0 [facility]RnubqjqUJFABBNHIN2772-35-57 02:50:00 Test Item Value Reference Range Interpretation Comments Monocytes # (test code 1.0 See_Comment [Aut omated message] The = Monocytes #) system which generated this result tra nsmitted reference range : <=0.8. The reference r tiesha was not used to int erpret this result as normal/abnormal . [id number] 02:50:00 Test Item Value Reference Range Interpretation Comments Eosinophils # (test code 0.3 See_Comment [A utomated message] The = Eosinophils #) system whic h generated this result tra nsmitted reference range : <=0.5. The reference r tiesha was not used to int erpret this result as normal/abnormal . [facility]KrihktdLZLFGKRSNZ4716-92-20 02:50:00 Test Item Value Reference Range Interpretation Comments Lymphocytes # (test code = Lymphocytes 2.9 1.0-5.5 #) [facility]XaybgrzWSJGZUJVFC4789-33-17 02:50:00 Test Item Value Reference Range Interpretation Comments Lymphocytes (test code = Lymphocytes) 24.1 20.0-40.0 [facility]NxnhfpbQPVNMQLFVI0909-77-95 02:50:00 Test Item Value Reference Range Interpretation Comments Segs (test code = Segs) 64.6 45.0-75.0 [id number] 02:50:00 Test Item Value Reference Range Interpretation Comments Basophils # (test code 0.1 See_Comment [Aut omated message] The = Basophils #) system which generated this result tra nsmitted reference range : <=0.2. The reference r tiesha was not used to int erpret this result as normal/abnormal . [facility]TkvwtbgMPJCMWUGJU5138-08-38 02:50:00 Test Item Value Reference Range Interpretation Comments MCV (test code = MCV) 88.9 80.0-94.0 [facility]JpgraluQCKTZVYVII3505-89-09 02:50:00 Test Item Value Reference Range Interpretation Comments RDW (test code = RDW) 13.7 11.5-14.5 [facility]YcbyeksFBBVQGBLGZ9093-09-64 02:50:00 Test Item Value Reference Range Interpretation Comments MCHC (test code = MCHC) 33.6 32.0-36.0 [facility]AjxvqinXHFUCTPKOG8608-36-98 02:50:00 Test Item Value Reference Range Interpretation Comments MCH (test code = MCH) 29.8 pg 27.0-31.0 [facility]YiielwqOTOLFMRAAK6955-78-34 02:50:00 Test Item Value Reference Range Interpretation Comments Platelet (test code = Platelet) 203 133-450 [facility] HospitalBxktnanESNJLDXBWO4491-94-29 02:50:00 Test Item Value Reference Range Interpretation Comments MPV (test code = MPV) 9.5 7.4-10.4 [facility] HospitalZsocmlmDARTVOIDZU0628-94-43 02:50:00 Test Item Value Reference Range Interpretation Comments RBC (test code = RBC) 4.98 4.70-6.10 [facility] HospitalTtdmoweJWOZPNIXTV1608-74-93 02:50:00 Test Item Value Reference Range Interpretation Comments WBC (test code = WBC) 12.0 3.7-10.4 [facility]KfyykufWZGUEYRVCR3209-65-93 02:50:00 Test Item Value Reference Range Interpretation Comments Hct (test code = Hct) 44.3 42.0-54.0 [facility] HospitalBzvmhdpMRYJSASCAS3755-00-21 02:50:00 Test Item Value Reference Range Interpretation Comments Hgb (test code = Hgb) 14.9 14.0-18.0 [facility]
--- NOTE | 2022-11-22 14:03 | RAD REPORT ---
EXAM DESCRIPTION: RAD - Chest Single View - 11/22/2022 1:56 pm CLINICAL HISTORY: DYSPNEA Chest pain. COMPARISON: <Comparisons> FINDINGS: Portable technique limits examination quality. The lungs are grossly clear. The heart is upper limit of normal in size. No displaced fractures. IMPRESSION: No acute intrathoracic process suspected.
[2022-11-22 14:36] LABS: Absolute Lymphocytes (CBC) 3.7 K/uL (0.7-4.9); Hematocrit 47.9 % (39.6-49.0); Lymphocytes % 27.4 % (15.3-44.8); MCV 89.9 fL (80-100); MPV 8.6 fL (7.6-11.3); RBC Red Blood Cell Count 5.33 M/uL (4.33-5.43)
[2022-11-22 14:55] LABS: Protime INR 0.92
[2022-11-22 14:59] LABS: Albumin 3.8 g/dL (3.4-5.0); Bilirubin Direct 0.1 mg/dL (0-0.2); Bilirubin Indirect, Calculated 0.3 mg/dL (0.2-0.8); Bilirubin Total 0.4 mg/dL (0.2-1.0); Magnesium 2.4 mg/dL (1.6-2.4); Potassium 3.9 mEq/L (3.5-5.1); Protein, Total 7.8 g/dL (6.4-8.2); Troponin High Sensitivity 14.9 pg/mL (<58.9)
[2022-11-22] MEDS ORDERED: NICOTINE 21 MG/PAT TD ONE (15:52)
--- NOTE | 2022-11-22 16:25 | RAD REPORT ---
EXAM DESCRIPTION: CT - Chest For Pe Angio - 11/22/2022 4:15 pm CLINICAL HISTORY: Chest pain. SOB, elevated D-Dimer COMPARISON: No comparisons TECHNIQUE: CT angiogram of the pulmonary arteries was performed with MIP. All CT scans are performed using dose optimization technique as appropriate and may include automated exposure control or mA/KV adjustment according to patient size. FINDINGS: No evidence of pulmonary thromboembolism. No acute aortic finding demonstrated. The lungs are clear. No significant pericardial or pleural fluid. No concerning bony finding. IMPRESSION: No evidence of pulmonary thromboembolism. No acute lung findings.
--- NOTE | 2022-11-22 16:27 | ER ---
Nurse's Notes [facility] Name: Jose L Ruby Age: 62 yrs Sex: Male : 1960 Arrival Date: 11/22/2022 Time: 13:05 Bed 18 Private MD: Diagnosis: Dyspnea Presentation: 11/22 13:12 Chief complaint: Patient states: I was moving some large potted plants about 1 week ph ago, had some chest pain after picking them up and then started having some SOB." Was seen at PCP 11/19 and told to come to the hospital for BP of 120/70 and to get a chest xray. Coronavirus screen: Vaccine status: Patient reports receiving the 2nd dose of the covid vaccine. Ebola Screen: No symptoms or risks identified at this time. Initial Sepsis Screen: Does the patient meet any 2 criteria? No. Patient's initial sepsis screen is negative. Does the patient have a suspected source of infection? No. Patient's initial sepsis screen is negative. Risk Assessment: Do you want to hurt yourself or someone else? Patient reports no desire to harm self or others. Onset of symptoms was November 22, 2022. 13:12 Method Of Arrival: Ambulatory ph 13:12 Acuity: NGUYỄN 3 ph Historical: - Allergies: 13:14 No Known Allergies; ph - PSHx: 13:14 Ankle; ph - Immunization history:: Adult Immunizations unknown. - Social history:: Smoking status: Patient reports the use of cigarette tobacco products, smokes one pack cigarettes per day. Screenin:29 [facility] ED Fall Risk Assessment (Adult) History of falling in the last 3 months, kc6 including since admission No falls in past 3 months (0 pts) Confusion or Disorientation No (0 pts) Intoxicated or Sedated No (0 pts) Impaired Gait No (0 pts) Mobility Assist Device Used No (0 pt) Altered Elimination No (0 pt) Score/Fall Risk Level 0 - 2 = Low Risk Oriented to surroundings, Maintained a safe environment, Educated pt \\T\\ family on fall prevention, incl call for assistance when getting out of bed, Assessed \\T\\ reinforced patient's understanding of fall precautions, Hourly rounding (assess needs \\T\\ fall precautionary measures) done. Abuse screen: Denies threats or abuse. Denies injuries from another. Nutritional screening: No deficits noted. Tuberculosis screening: No symptoms or risk factors identified. Assessment: 14:38 General: Appears in no apparent distress. comfortable, Behavior is calm, cooperative, kc6 appropriate for age. Pain: Denies pain. Neuro: Rowe Agitation-Sedation Scale (RASS): 0 - Alert and Calm Level of Consciousness is awake, alert, obeys commands, Oriented to person, place, time, situation, Appropriate for age. Cardiovascular: Heart tones S1 S2 present Capillary refill < 3 seconds Rhythm is sinus rhythm Chest pain is denied. Respiratory: Reports shortness of breath on exertion Airway is patent Trachea midline Respiratory effort is even, unlabored, Respiratory pattern is symmetrical, tachypnea Breath sounds are clear bilaterally. GI: No signs and/or symptoms were reported involving the gastrointestinal system. : No signs and/or symptoms were reported regarding the genitourinary system. EENT: No signs and/or symptoms were reported regarding the EENT system. Derm: No signs and/or symptoms reported regarding the dermatologic system. Skin is intact, Skin is pink, warm \\T\\ dry. Musculoskeletal: No signs and/or symptoms reported regarding the musculoskeletal system. Circulation, motion, and sensation intact. Capillary refill < 3 seconds, Range of motion: intact in all extremities. 15:25 Reassessment: Patient appears in no apparent distress at this time. No changes from kc6 previously documented assessment. Patient and/or family updated on plan of care and expected duration. Pain level reassessed. Patient is alert, oriented x 3, equal unlabored respirations, skin warm/dry/pink. 16:31 Reassessment: pt requesting to leave [place] due to need to go to [place] to be with family kc6 in hospital. pt also stating he doesn't want to be treated here. [phone]. Vital Signs: 13:12 BP 154 / 98; Pulse 95; Resp 18; Temp 97.9; Pulse Ox 97% on R/A; Weight 114.31 kg; ph Height 5 ft. 9 in. ; 14:39 BP 138 / 74; Pulse 93; Resp 14 S; Pulse Ox 99% on R/A; kc6 15:27 BP 122 / 82; Pulse 91; Resp 19 S; Pulse Ox 100% on R/A; kc6 13:12 Body Mass Index 37.21 (114.31 kg, 175.26 cm) ph ED Course: 13:06 Patient arrived in ED. rg4 13:07 Sha Duarte MD is Attending Physician. sp3 13:14 Triage completed. ph 13:15 Arm band placed on Patient placed in waiting room, Patient notified of wait time. ph 13:58 XRAY Chest (1 view) In Process Unspecified. EDMS 14:05 Maribell Austin, RN is Primary Nurse. kc6 14:26 Inserted saline lock: 20 gauge in right antecubital area, using aseptic technique. kc6 Blood collected. 14:29 Patient has correct armband on for positive identification. Bed in low position. Call kc6 light in reach. Side rails up X 1. 16:17 CT Chest For PE Angio In Process Unspecified. EDMS 16:32 No provider procedures requiring assistance completed. IV discontinued, intact, kc6 bleeding controlled, No redness/swelling at site. Pressure dressing applied. Administered Medications: 15:50 Drug: Nicoderm CQ Transdermal Patch 21 mg/24 hr 1 patches Route: Transdermal; Site: kc6 affected area; Medication: 16:32 VIS not applicable for this client. kc6 Outcome: 16:26 Discharge ordered by . sp3 16:32 Discharged to home ambulatory. kc6 16:32 Condition: stable 16:32 Discharge instructions given to patient, Instructed on discharge instructions, follow up and referral plans. Demonstrated understanding of instructions, follow-up care. 16:32 Patient left the ED. kc6 Signatures: Dispatcher [employer] EDLulu Sheriff RN RN nisa DarinSis rg4 Sha Duarte MD MD sp3 Maribell Austin, PACO RN kc6
--- NOTE | 2022-11-22 16:27 | EDPHYS ---
Physician Documentation [facility] Name: Jose L Ruby Age: 62 yrs Sex: Male : 1960 Arrival Date: 11/22/2022 Time: 13:05 Bed 18 Private MD: ED Physician Sha Duarte HPI: 11/22 14:49 This 62 yrs old Male presents to ER via Ambulatory with complaints of Breathing sp3 Difficulty. 14:49 62-year-old male with no significant past medical history presents to the ED with chief sp3 complaint dyspnea on exertion for approximately 8 days. Patient states that he was helping somebody move and the dust and mud from plants "got into his system" and since then he has had these problems. He denies any chest pain, back pain, neck pain, headache, fever, abdominal pain, nausea, vomiting, diarrhea, skin rash, known sick contacts, travel history, prolonged immobilization, prior DVT or PE, or any other signs or symptoms on review of systems at this time. States symptoms are off-and-on. He has continued to smoke cigarettes without difficulty during this time. He states he "finally got sick of it" and decided to come in for evaluation.. Historical: - Allergies: 13:14 No Known Allergies; ph - PSHx: 13:14 Ankle; ph - Immunization history:: Adult Immunizations unknown. - Social history:: Smoking status: Patient reports the use of cigarette tobacco products, smokes one pack cigarettes per day. ROS: 14:50 Constitutional: Negative for fever, chills, and weight loss, Eyes: Negative for injury, sp3 pain, redness, and discharge, ENT: Negative for injury, pain, and discharge, Neck: Negative for injury, pain, and swelling, Cardiovascular: Negative for chest pain, palpitations, and edema, Abdomen/GI: Negative for abdominal pain, nausea, vomiting, diarrhea, and constipation, Back: Negative for injury and pain, MS/Extremity: Negative for injury and deformity, Skin: Negative for injury, rash, and discoloration, Neuro: Negative for headache, weakness, numbness, tingling, and seizure, Psych: Negative for depression, anxiety, suicide ideation, homicidal ideation, and hallucinations, Allergy/Immunology: Negative for hives, rash, and allergies, Endocrine: Negative for neck swelling, polydipsia, polyuria, polyphagia, and marked weight changes. 14:50 All other systems are negative. Exam: 14:50 Constitutional: This is a well developed, well nourished patient who is awake, alert, sp3 and in no acute distress. Head/Face: Normocephalic, atraumatic. Eyes: Pupils equal round and reactive to light, extra-ocular motions intact. Lids and lashes normal. Conjunctiva and sclera are non-icteric and not injected. Cornea within normal limits. Periorbital areas with no swelling, redness, or edema. Neck: Trachea midline, no thyromegaly or masses palpated, and no cervical lymphadenopathy. Supple, full range of motion without nuchal rigidity, or vertebral point tenderness. No Meningismus. Chest/axilla: Normal chest wall appearance and motion. Nontender with no deformity. No lesions are appreciated. Cardiovascular: Regular rate and rhythm with a normal S1 and S2. No gallops, murmurs, or rubs. Normal PMI, no JVD. No pulse deficits. Abdomen/GI: Soft, non-tender, with normal bowel sounds. No distension or tympany. No guarding or rebound. No evidence of tenderness throughout. Skin: Warm, dry with normal turgor. Normal color with no rashes, no lesions, and no evidence of cellulitis. MS/ Extremity: Pulses equal, no cyanosis. Neurovascular intact. Full, normal range of motion. Neuro: Awake and alert, GCS 15, oriented to person, place, time, and situation. Cranial nerves II-XII grossly intact. Motor strength 5/5 in all extremities. Sensory grossly intact. Cerebellar exam normal. Normal gait. Psych: Awake, alert, with orientation to person, place and time. Behavior, mood, and affect are within normal limits. 14:50 Respiratory: Course sounds bilaterally. No pedal edema appreciated.. Vital Signs: 13:12 BP 154 / 98; Pulse 95; Resp 18; Temp 97.9; Pulse Ox 97% on R/A; Weight 114.31 kg; ph Height 5 ft. 9 in. ; 14:39 BP 138 / 74; Pulse 93; Resp 14 S; Pulse Ox 99% on R/A; kc6 15:27 BP 122 / 82; Pulse 91; Resp 19 S; Pulse Ox 100% on R/A; kc6 13:12 Body Mass Index 37.21 (114.31 kg, 175.26 cm) ph MDM: 13:29 Patient medically screened. sp3 14:51 Data reviewed: vital signs, nurses notes, lab test result(s), EKG, radiologic studies. sp3 ED course: 62-year-old male with dyspnea on exertion without any other clinical symptoms. EKG demonstrates no significant ischemic changes. The diagnosis includes pneumonitis, bronchitis, pneumonia, acute coronary syndrome, allergies, among others. I am not highly suspicious for sepsis, shock, pulm embolism, aortic pathology including dissection or aneurysm, or any other critical findings. With 1 troponin level, we will effectively rule out acute coronary syndrome. Patient has a low heart score assuming normal troponin. Follow-up outpatient with cardiology for outpatient stress test as indicated. Further disposition after data acquisition and patient course and reevaluation.. 16:25 ED course: States he feels better and no longer wants to stay. CT scan of the chest is sp3 still pending given his elevated D-dimer. However we will take his phone number and call in if he needs to return for any significant abnormalities. He understands the risks of leaving and we will document this and inform discharge.. 11/22 13:29 Order name: Basic Metabolic Panel; Complete Time: 15: 3 11/22 13:29 Order name: CBC with Diff; Complete Time: 15: sp3 11/22 13:29 Order name: D-Dimer; Complete Time: 15: sp3 11/22 13:29 Order name: LFT's; Complete Time: 15: 3 11/22 13:29 Order name: Magnesium; Complete Time: 15: 3 11/22 13:29 Order name: NT PRO-BNP; Complete Time: 15: sp11/22 13:29 Order name: PT-INR; Complete Time: 15: 3 11/22 13:29 Order name: Troponin HS; Complete Time: 15: 3 11/22 13:29 Order name: XRAY Chest (1 view); Complete Time: 15: sp3 11/22 15:22 Order name: CT Chest For PE Angio; Complete Time: 18:08 sp3 11/22 13:29 Order name: EKG; Complete Time: 13:30 sp3 11/22 13:29 Order name: Cardiac monitoring; Complete Time: 14:26 sp3 11/22 13:29 Order name: EKG - Nurse/Tech; Complete Time: 14: sp3 11/22 13:29 Order name: IV Saline Lock; Complete Time: 14: sp3 11/22 13:29 Order name: Labs collected and sent; Complete Time: 14: sp3 11/22 13:29 Order name: O2 Per Protocol; Complete Time: 14: sp3 11/22 13:29 Order name: O2 Sat Monitoring; Complete Time: 14: sp3 Administered Medications: 15:50 Drug: Nicoderm CQ Transdermal Patch 21 mg/24 hr 1 patches Route: Transdermal; Site: [facility] affected area; Disposition Summary: 11/22/22 16:26 Discharge Ordered Location: Home sp3 Condition: Stable sp3 Diagnosis - Dyspnea sp3 Discharge Instructions: - Discharge Summary Sheet sp3 - Shortness of Breath, Adult sp3 Forms: - Medication Reconciliation Form sp3 - Thank You Letter sp3 - Antibiotic Education sp3 - Prescription Opioid Use sp3 Signatures: Dispatcher [employer] EDRuy Rodriguez, MANI-C KNOTTING MACHINE OPERATOR-Cla1 Lulu Espinosa, RN RN ph Sha Duarte MD MD sp3 Maribell Austin RN RN kc6
[2022-11-22 17:12] VITALS: TEMP 97.9
[2022-11-22 17:16] VITALS: BP 122/82; O2SAT 100
--- NOTE | 2022-11-24 04:59 | EKG ---
Test Date: 2022-11-22 Test Time: 14:18:19 Power Systems Engineer: SELINA MEASUREMENT RESULTS: Intervals: Rate: 94 NJ: 156 QRSD: 84 QT: 370 QTc: 462 [place]: P: 78 NJ: 156 QRS: 75 T: 47 INTERPRETIVE STATEMENTS: Normal sinus rhythm Normal ECG No previous ECG available for comparison Electronically Signed On 11-24-22 04:54:41 CDT by Sly Villavicencio
== END 2022-11-22 16:32 | disposition home or self-care (01) ==
LOC: ER 13:05
DX: R06.00 Dyspnea, unspecified (principal); F17.210 Nicotine dependence, cigarettes, uncomplicated
CPT/HCPCS: 93005; 85025; 80048; 36415; 83735; 85610; 85379; 80076; 84484; 83880; 71275; 71045; Q9967

== ENCOUNTER 2023-01-09 14:39 | Emergency (ER) | payer OTHER ==
--- OUTSIDE RECORDS SUMMARY | 2023-01-09 14:42 | XMS REPORT | Clinical Summary ---
:1960 Author Organization [facility] MD [facility] Address [address] [place] [address] Care Team Providers Name Role Phone Unavailable [...] Vaccination (#1) 04/23/1961 Results Not on fileafter 01/09/2022
--- OUTSIDE RECORDS SUMMARY | 2023-01-09 14:48 | XMS REPORT | Continuity of Care Document ---
:1960 Author Organization [facility] t Address [address] [place] [address] [address] [place] [address] Care Team Providers Name Role Phone Breezy Hammond Primary Care Physician Tammy Raymond Attending Clinician Unavailable SYSTEM, PROVIDER NOT IN Attending Clinician Unavailable BRIA KIMBLE Attending Clinician Unavailable Torsten Duarte Attending Clinician Luna OLVERA, Goldy Attending Clinician CLAIR MENDOZA Attending Clinician Unavailable RODY HOGUE Attending Clinician Unavailable WHITNEY MOYA Attending Clinician Unavailable JESSE CHILDRESS Attending Clinician Unavailable Danae Luna Attending Clinician Danae Luna Admitting Clinician Payers Payer Name Policy Type Policy Number Effective Date Expiration Date S dinh [facility] [id number] 2022 00:00:00 Problems Condition Condition Condition Status Onset Resolution Last Treating Co mments Source Name Details Category Date Date Treatment Clinician Date Dyspnea on Dyspnea Diagnosis Active 2022-12-27 Memoria exertion on 12-24 09:29:05 l (finding) exertion 00:00: Keerthi nn (finding) 00 Active 12/24/2022 Diagnosis 12/27/2022 [facility] Cardiology [facility] RT KNEE OA RT KNEE Diagnosis Active 2022-12-30 Memoria OA Active 12-13 12:42:00 l 12/13/2022 08:00: Bandar craig SMR 00 [facility] Prostatiti Prostatiti Disease Active U balbir s s 02-12 ity of 00:00: [place] 00 MD [facility] Anxiety Anxiety Disease Active Univers disorder disorder 02-12 ity of 00:00: [place] 00 MD Alessandro craig [facility] [place] Hyperchole Hyperchole Disease Active U balbir sterolemia sterolemia 02-12 it y of 00:00: [place] 00 MD Alessandro craig [facility] Tobacco Tobacco Disease Active Univers dependence dependence 12-31 it y of syndrome syndrome 00:00: 00 MD Alessandro craig [facility] COCAINE COCAINE Diagnosis Active 2017-07-01 Memoria ABUSE, ABUSE, 11-03 08:03:00 l RHABDOMYOL RHABDOMYOL 00:00: Cristofer ANAND, YIS, 00 HYPOKALEMI HYPOKALEMI Active 11/03/2016 [facility] OTHER OTHER Diagnosis Active 2016-11-03 Me moria Active 11-03 23:17:00 l 11/03/2016 00:00: Bandar craig [address] Osteoporos Osteoporos Disease Active M ethodi is with is with 09-23 st pathologic pathologic 00:00: Ho spita al al 00 l fracture fracture of ankle of ankle and foot and foot Hypogonadi Hypogonadi Disease Active M ethodi sm in male sm in male 09-23 00:00: Hospita 00 l Osteoporos Osteoporos Disease Active U nivers is is 09-23 ity of 00:00: [place] 00 MD Alessandro craig [facility] [place] Plantar Plantar Disease Active Methodi fasciitis fasciitis 07-12 st 00:00: Hospita 00 l Arthritis Arthritis Disease Active Met hodi of ankle of ankle 02-01 st or foot, or foot, 00:00: Hospit a degenerati degenerati 00 l ve ve Obese Obese Disease Active Univers class II class II 3-20 ity of 00:00: [place] 00 MD Alessandro craig [facility] [place] [id number] Anxiety Problem Active [facility] [id number] Testostero Problem Active C ommon 104 ne Spirit deficiency - CHI in male [facility] [id number] Body mass Problem Active Com mon index Spirit (BMI) of - CHI 34.0-34.9 St in adult [facility] [id number] Obstructiv Problem Active Com mon e sleep Spirit apnea - CHI syndrome [facility] [id number] Pure Problem Active Common hyperchole Spirit sterolemia - CHI [facility] COCAINE COCAINE Diagnosis Active 2017-07-01 Memoria ABUSE, ABUSE, 08:03:00 l UNCOMPLICA UNCOMPLICA He rmann LANI GARIBAY Active [facility] RHABDOMYOL RHABDOMYO Diagnosis Active 2017-07-01 Memoria YSIS LYSIS 08:03:00 l Active Bandar craig [facility] HYPOKALEMI HYPOKALEM Diagnosis Active 2017-07-01 Memoria A IA Active 08:03:00 l [facility] Hyperlipid Hyperlipi Problem Active 2022-12-27 Memoria emia demia 09:29:05 l (disorder) (disorder) He rmann Active Problem 12/27/2022 [facility] Obesity Obesity Problem Active 2022-12-27 Me moria (disorder) (disorder) 09:29:05 l Active [place] Problem 12/27/2022 Medical [facility] Deficiency Deficienc Problem Active 2022-12-27 Memoria of y of 09:29:05 l macronutri macronutri He rmtashi ents ents (disorder) (disorder) Active Problem 12/27/2022 [facility] Pulmonary Problem Active 2022-12-27 Pr moria hypertensi Pulmonary 09:29:05 l on hypertensi Bandar n (disorder) on (disorder) Active [facility] M17.11 - M17.11 - Diagnosis Active 2022-12-14 Memoria UNILATERAL UNILATERAL 11:21:00 l PRIMARY PRIMARY [place] OSTEOARTHR OSTEOARTHR I I Active [facility] Dyspnea Dyspnea Diagnosis 2022-12-27 2022-12-27 Memoria (finding) (finding) 12-24 09:29:05 09:29:05 l 12/24/2022 17:41: Bandar n Diagnosis 00 12/27/2022 [facility] Allergies, Adverse Reactions, Alerts Allergy Allergy Status Severity Reaction(s) Onset Inactive Treating Comm ents Source Name Type Date Date Clinician No Known No Known Active Memori a Medicati Medicati l on on [place] Allergie Allergie s s Family History Family Member Diagnosis Comments Start Date Stop Date Source Natural mother Alzheimer's disease [facility] Social History Social Habit Start Date Stop Date Quantity Comments Source History of Tobacco [facility] Gender identity [facility] Sexual orientation [facility] Exposure to 2022-12-02 2022-12-12 Not sure [facility] SARS-CoV-2 (event) 00:00:00 11:58:00 Alcohol intake 2021-03-18 2021-03-18 Current drinker Unive rsity of 00:00:00 00:00:00 of alcohol [facility] Cigarettes smoked 2021-01-28 2021-01-28 Univers ity of current (pack per 00:00:00 00:00:00 Jaron Carmichael ) - Reported Cancer Ce nter Cigarette 2021-01-28 2021-01-28 University of pack-years 00:00:00 00:00:00 [facility] Tobacco use and 2021-01-28 2021-01-28 Former smokeless Uni versity of exposure 00:00:00 00:00:00 tobacco user [facility] Alcohol Comment 2020-12-31 2020-12-31 Reports drinking Uni versity of 00:00:00 00:00:00 1-2 drinks per [facility] History of Social 2019-02-19 2019-02-[address] function 00:00:00 00:00:00 Hospital Social History 2016-11-04 2016-11-04 [facility] Ajith daniels 03:59:53 03:59:53 Sex Ass[birth year] At [birth year] Universit y of 00:00:00 00:00:00 [facility] Smoking Status Start Date Stop Date Source Tobacco smoking consumption [facility] ealt unknown Tobacco smoking status 2022-12-24 14:08:53 2022-12-24 14:08:53 Yaa Barba Smokes tobacco daily 2018-05-09 00:00:00 [facility] Medications Ordered Filled Start Stop Current Ordering Indication Dosage Frequency Signature Comments Components Source Medication Medication Date Date Medication? Clinician (SIG) Name Name Lasix 20 mg Yes 20 mg = 1 M emoria oral tablet 6-23 tab, PO, l 17:42: Daily, 0 [place] 00 Refill(s) rosuvastati Yes 20 mg = 1 M emoria n 20 mg 6-23 tab, PO, l oral tablet 14:11: Daily, 0 He r[place] 00 Refill(s) Ozempic 2 Yes 0.5 mg, Memor ia mg/1.5 mL - SUB-Q, l (0.25 mg or 14:08: qWeek, 0 He rmann 0.5 mg 00 Refill(s) dose) subcutaneou s solution buPROPion 2020-07 Yes Ex-smoker 150mg Take 1 Univers (WELLBUTRIN 0-07 for less tablet it y of XL) 150 mg 00:00: than 1 year (150 mg) [place] 24 hr 00 by mouth MD tablet every Anderso morning. [facility] buPROPion 2020-07 Yes Ex-smoker 150mg Take 1 Univers (WELLBUTRIN 0-07 for less tablet it y of XL) 150 mg 00:00: than 1 year (150 mg) [place] 24 hr 00 by mouth MD tablet every Anderso morning. [facility] buPROPion 2020-07 Yes Ex-smoker 150mg Take 1 Univers (WELLBUTRIN 0-07 for less tablet it y of XL) 150 mg 00:00: than 1 year (150 mg) [place] 24 hr 00 by mouth MD tablet every Anderso morning. [facility] gabapentin Yes Insomnia, Take one Univers (NEURONTIN) 03-11 not at HS for ity of 300 mg 00:00: otherwise first day [place] capsule 00 specified then may MD increase Anderso to 2-3 qHS [facility] gabapentin Yes Insomnia, Take one Univers (NEURONTIN) 03-11 not at HS for ity of 300 mg 00:00: otherwise first day [place] capsule 00 specified then may MD increase Anderso to 2-3 qHS n Cancer Center gabapentin Yes Insomnia, Take one Univers (NEURONTIN) 03-11 not at HS for ity of 300 mg 00:00: otherwise first day [place] capsule 00 specified then may MD increase Anderso to 2-3 qHS n Cancer Center nicotine Yes Tobacco Apply 1 Uni vers [...] mouth [place] (FISH OIL 45 daily. ORAL) [facility] docosahexae Yes 2000mg Take 2,000 Univers noic 8-12 mg by ity of acid/epa 10:22: mouth [place] (FISH OIL 45 daily. ORAL) [facility] docosahexae Yes 2000mg Take 2,000 Univers noic 8-12 mg by ity of acid/epa 10:22: mouth (FISH OIL 45 daily. ORAL) [facility] Flomax Flomax 2019- No Tammy 1 capsule Co mmon 07-19 [place] [facility] 00:00: 00:00 - CHI 00 :00 [facility] Ciprofloxac Ciprofloxac 2020- No Tammy 1 tablet Common in HCl in HCl 07-19 [place] [facility] 00:00: 00:00 - CHI 00 :00 [facility] Niacin Niacin Yes Tammy 1 capsule Com mon Flush Free Flush Free 6-20 [place] [facility] leticia 00:00: - CHI 00 [facility] BuPROPion BuPROPion Yes Tammy 1 tablet Common HCl ER (SR) HCl ER (SR) 507 [place] in the Spirit 00:00: morning - CHI 00 [facility] pen needle, Yes [id number] For use Methodi diabetic -[address] (BD INSULIN 00:00: [facility] PEN NEEDLE 00 daily l UF MINI) 31 gauge x 3/16" needle pen needle, Yes [id number] For use Methodi diabetic -[address] (BD INSULIN 00:00: [facility] PEN NEEDLE 00 daily l UF MINI) 31 gauge x 3/16" needle pen needle, Yes [id number] For use Methodi diabetic -[address] (BD INSULIN 00:00: [facility] PEN NEEDLE 00 daily l UF MINI) 31 gauge x 3/16" needle tamsulosin Yes 0.4 mg = 1 M emoria 0.4 mg oral 5-06 cap, PO, l capsule 15:01: After [place] 00 Dinner, # 30 cap, 1 Refill(s), Pharmacy: [facility] [id number] Docusate Yes 100 mg = 1 Mem oria Sodium 100 5-06 cap, PO, l MG Oral 15:01: BID, # 20 Keerthi nn Capsule 00 cap, 0 Refill(s), Pharmacy: [place] [id number] tamsulosin Yes 0.4 mg = 1 M emoria 0.4 mg oral 5-06 cap, PO, l capsule 15:01: After [place] 00 Dinner, # 30 cap, 1 Refill(s), Pharmacy: [place] [id number] Docusate Yes 100 mg = 1 Mem oria Sodium 100 5-06 cap, PO, l MG Oral 15:01: BID, # 20 Keerthi nn Capsule 00 cap, 0 Refill(s), Pharmacy: [place] [address] tamsulosin Yes 0.4 mg = 1 M emoria 0.4 mg oral 5-06 cap, PO, l capsule 15:01: After [place] 00 Dinner, # 30 cap, 1 Refill(s), Pharmacy: [place] [address] Docusate Yes 100 mg = 1 Mem oria Sodium 100 5-06 cap, PO, l MG Oral 15:01: BID, # 20 Keerthi nn Capsule 00 cap, 0 Refill(s), Pharmacy: [place] [id number] Docusate Yes 100 mg = 1 Mem oria Sodium 100 5-06 cap, PO, l MG Oral 15:01: BID, # 20 Keerthi nn Capsule 00 cap, 0 Refill(s), Pharmacy: [place] [address] tamsulosin Yes 0.4 mg = 1 M emoria 0.4 mg oral 5-06 cap, PO, l capsule 15:01: After [place] 00 Dinner, # 30 cap, 1 Refill(s), Pharmacy: [place] [id number] Protonix No Notes: Memoria 5-05 Tablet l 21:30: should not [place] 00 be chewed or crushed. (Same as: Protonix) Protonix No Notes: Memoria 5-05 Tablet l 21:30: should not [place] 00 be chewed or crushed. (Same as: Protonix) Protonix No Notes: Memoria 5-05 Tablet l 21:30: should not [place] 00 be chewed or crushed. (Same as: Protonix) Protonix No Notes: Memoria 5-05 Tablet l 21:30: should not [place] 00 be chewed or crushed. (Same as: Protonix) D5W 1,000 2017- No 1,000 mL, Mem oria mL + 5-05 Rate: 55 l potassium 20:01: ml/hr, Bandar n chloride 40 00 Infuse mEq over: 18.5 hr, Route: IV, Dosing Weight 99.091 kg, Total Volume: 1,020, Start date: 11/05/16 15:01:00 CDT, Duration: 30 day, Stop date: 12/05/16 15:00:00 CDT D5W 1,000 2017- No 1,000 mL, Mem oria mL + [...] Stop date: 12/05/16 15:00:00 CDT D5W 1,000 2016- No 1,000 mL, Mem oria mL + 5-05 Rate: 55 l potassium 20:01: ml/hr, Bandar n chloride 40 00 Infuse mEq over: 18.5 hr, Route: IV, Dosing Weight 99.091 kg, Total Volume: 1,020, Start date: 11/05/16 15:01:00 CDT, Duration: 30 day, Stop date: 12/05/16 15:00:00 CDT Flomax No Notes: Memoria 5-04 (Same As: l 22:00: Flomax) [place] 00 "Do Not Crush" Lovenox No Notes: Memoria 5-04 (Same as: l 22:00: Lovenox) [place] Flomax No Notes: Memoria 5-04 (Same As: l 22:00: Flomax) [place] "Do Not Crush" Lovenox No Notes: Memoria 5-04 (Same as: l 22:00: Lovenox) [place] Flomax No Notes: Memoria 5-04 (Same As: l 22:00: Flomax) [place] "Do Not Crush" Lovenox No Notes: Memoria 5-04 (Same as: l 22:00: Lovenox) [place] Flomax No Notes: Memoria 5-04 (Same As: l 22:00: Flomax) [place] "Do Not Crush" Lovenox No Notes: Memoria 5-04 (Same as: l 22:00: Lovenox) [place] potassium No Notes: Memori a chloride 5-04 [...] 5-04 (Same as: l 17:59: K-Dur 20) [place] "Do Not Crush" With food and full [...] (Same as: l 14:00: MaxEPA, [place] 00 [place] 3 fish oil ) Non-Formul deepti Drug Docusate No Notes: Memoria 5-04 (Same as: l 14:00: Colace) [place] 00 (Do Not Crush) Fish Oil No Notes: Memoria 5-04 (Same as: l 14:00: MaxEPA, [place] 00 [place] 3 fish oil ) Non-Formul deepti Drug Docusate No Notes: Memoria 5-04 (Same as: l 14:00: Colace) [place] 00 (Do Not Crush) Fish Oil No Notes: Memoria 5-04 (Same as: l 14:00: MaxEPA, [place] 00 [place] 3 fish oil ) Non-Formul deepti Drug Docusate No Notes: Memoria 5-04 (Same as: l 14:00: Colace) [place] (Do Not Crush) Fish Oil No Notes: Memoria 5-04 (Same as: l 14:00: MaxEPA, [place] 3 fish oil ) Non-Formul deepti Drug Docusate No Notes: Memoria 5-04 (Same as: l 14:00: Colace) [place] (Do Not Crush) Fish Oil Yes = 1 cap, Memor ia 5-04 PO, Daily, l 06:45: 0 [place] 00 Refill(s) multivitami Yes 1 tab, Akhil asia n 5-04 Daily, 0 l 06:45: Refill(s) [place] Fish Oil Yes = 1 cap, Memor ia 5-04 PO, Daily, l 06:45: 0 [place] 00 Refill(s) multivitami Yes 1 tab, Akhil asia n 5-04 Daily, 0 l 06:45: Refill(s) [place] Fish Oil Yes = 1 cap, Memor ia 5-04 PO, Daily, l 06:45: 0 [place] 00 Refill(s) multivitami Yes 1 tab, Akhil asia n 5-04 Daily, 0 l 06:45: Refill(s) [place] 00 multivitami Yes 1 tab, Akhil asia n 5-04 Daily, 0 l 06:45: Refill(s) [place] Fish Oil Yes = 1 cap, Memor ia 5-04 PO, Daily, l 06:45: 0 [place] 00 Refill(s) Acetaminoph No 100.4 F, M emoria en 5-04 Start l 06:10: date: [place] 11/04/16 1:10:00 CDT, Duration: 30 day, Stop date: 12/04/16 1:09:00 CDT Acetaminoph No Notes: Akhil asia en 325 MG / 5-04 (Same as: l Hydrocodone 06:10: [place] Keerthi nn Bitartrate 00 325/5) Do 5 MG Oral not exceed Tablet 4gm/day of acetaminop hen. Morphine No Notes: Memoria 5-04 (Same l 06:10: as:MORPhin [place] 00 e Sulfate) Ondansetron No 4 mg, Memor ia 5-04 Route: l 06:10: IVP, Q6H, [place] 00 Dosing Weight 100, kg, PRN Nausea & Vomiting, Start date: 11/04/16 1:10:00 CDT, Duration: 30 day, Stop date: 12/04/16 1:09:00 CDT Acetaminoph No 100.4 F, M emoria en 5-04 Start l 06:10: date: [place] 11/04/16 1:10:00 CDT, Duration: 30 day, Stop date: 12/04/16 1:09:00 CDT Acetaminoph No Notes: Akhil asia en 325 MG / 5-04 (Same as: l Hydrocodone 06:10: [place] Keerthi nn Bitartrate 00 325/5) Do 5 [...] emoria en 5-04 Start l 06:10: date: [place] 11/04/16 1:10:00 CDT, Duration: 30 day, Stop date: 12/04/16 1:09:00 CDT Acetaminoph No Notes: Akhil asia en 325 MG / 5-04 (Same as: l Hydrocodone 06:10: [place] Keerthi nn Bitartrate 00 325/5) Do 5 MG Oral not exceed Tablet 4gm/day of acetaminop hen. Morphine No Notes: Memoria 5-04 (Same l 06:10: as:MORPhin [place] 00 e Sulfate) Ondansetron No 4 mg, Memor ia 5-04 Route: l 06:10: IVP, Q6H, [place] 00 Dosing Weight 100, kg, PRN Nausea & Vomiting, Start date: 11/04/16 1:10:00 CDT, Duration: 30 day, Stop date: 12/04/16 1:09:00 CDT Acetaminoph No 100.4 F, M emoria en 5-04 Start l 06:10: date: [place] 11/04/16 1:10:00 CDT, Duration: 30 day, Stop date: 12/04/16 1:09:00 CDT Acetaminoph No Notes: Akhil asia en 325 MG / 5-04 (Same as: l Hydrocodone 06:10: [place] Keerthi nn Bitartrate 00 325/5) Do 5 MG Oral not exceed Tablet 4gm/day of acetaminop hen. Morphine No Notes: Memoria 5-04 (Same l 06:10: as:MORPhin [place] 00 e Sulfate) Ondansetron No 4 mg, Memor ia 5-04 Route: l 06:10: IVP, Q6H, [place] 00 Dosing Weight 100, kg, PRN Nausea & Vomiting, Start date: 11/04/16 1:10:00 CDT, Duration: 30 day, Stop date: 12/04/16 1:09:00 CDT Acetaminoph No Notes: Do M emoria en 5-04 not exceed l 04:51: 4 gm/day. [place] (Same as: Tylenol) Ondansetron No Notes: Akhil asia 5-04 (Same as: l 04:51: Zofran) [place] 00 MEDICATION WASTE Product Size: 4 mg Product Wasted: ___ mg Acetaminoph No Notes: Do M emoria en 5-04 not exceed l 04:51: 4 gm/day. [place] (Same as: Tylenol) Ondansetron No Notes: Akhil asia 5-04 (Same as: l 04:51: Zofran) [place] 00 MEDICATION WASTE Product Size: 4 mg Product Wasted: ___ mg Acetaminoph No Notes: Do M emoria en 11-04 not exceed l 04:51: 4 gm/day. [place] (Same as: Tylenol) Ondansetron No Notes: Akhil asia 5-04 (Same as: l 04:51: Zofran) [place] 00 MEDICATION WASTE Product Size: 4 mg Product Wasted: ___ mg Ondansetron No Notes: Akhil asia 5-04 (Same as: l 04:51: Zofran) [place] 00 MEDICATION WASTE Product Size: 4 mg Product Wasted: ___ mg Acetaminoph No Notes: Do M emoria en 11-04 not exceed l 04:51: 4 gm/day. [place] 00 (Same as: Tylenol) potassium No Notes: [...] 5-04 Rate: 150 l 0.154 04:04: ml/hr, [place] MEQ/ML 00 Infuse Injectable over: 6.7 Solution hr, Route: IV, Dosing Weight 100 kg, Total Volume: 1,000, Start date: 11/03/16 23:04:00 CDT, Duration: 30 day, Stop date: 12/03/16 23:03:00 CDT Ativan No Notes: Memoria 5-04 (Same as: l 04:04: Ativan) [place] 00 Sodium No 1,000 mL, Memori a Chloride 5-04 Rate: 150 l 0.154 04:04: ml/hr, [place] MEQ/ML 00 Infuse Injectable over: 6.7 Solution hr, Route: IV, Dosing Weight 100 kg, Total Volume: 1,000, Start date: 11/03/16 23:04:00 CDT, Duration: 30 day, Stop date: 12/03/16 23:03:00 CDT Ativan 0 No Notes: Memoria 5-04 (Same as: l 04:04: Ativan) [place] Sodium No 1,000 mL, Memori a Chloride 5-04 Rate: 150 l 0.154 04:04: ml/hr, [place] MEQ/ML 00 Infuse Injectable over: 6.7 Solution hr, Route: IV, Dosing Weight 100 kg, Total Volume: 1,000, Start date: 11/03/16 23:04:00 CDT, Duration: 30 day, Stop date: 12/03/16 23:03:00 CDT Ativan No Notes: Memoria 5-04 (Same as: l 04:04: Ativan) [place] 00 Sodium No 1,000 mL, Memori a Chloride 5-04 Rate: 150 l 0.154 04:04: ml/hr, [place] MEQ/ML 00 Infuse Injectable over: 6.7 Solution hr, Route: IV, Dosing Weight 100 kg, Total Volume: 1,000, Start date: 11/03/16 23:04:00 CDT, Duration: 30 day, Stop date: 12/03/16 23:03:00 CDT Ativan 0 No Notes: Memoria 5-04 (Same as: l 04:04: Ativan) [place] 00 Sodium 0 No 2,000 mL, Memori a Chloride 5-04 2000 l 0.154 04:03: ml/hr, [place] MEQ/ML 00 Infuse Injectable Over: 1 Solution hr, Route: IV, 2,000, Drug form: INJ, ONCE, Priority: STAT, Dosing Weight 100 kg, Start date: 11/03/16 23:03:00 CDT, Duration: 1 doses or times, Stop date: 11/03/16 23:03:00 CDT Sodium No 2,000 mL, Memori a Chloride 5-04 2000 l 0.154 04:03: ml/hr, [place] MEQ/ML 00 Infuse Injectable Over: 1 Solution [...] 0.9% 5-04 Same as: l 02:36: BD [place] 00 Posiflush Sterile celecoxib Yes TAKE ONE [...] Oil Yes Tammy 2 capsule C shamika [place] [facility] Flomax 0.4 Flomax 0.4 No 1{capsu QD Flomax 0.4 MG MG le} MG Immunizations Ordered Immunization Filled Immunization Date Status Commen ts Source Name Name Flucelvax - single Flucelvax - single 2019-04-21 Completed [facility] dose syringe dose syringe 08:56:00 - [facility] Vital Signs Vital Name Observation Time Observation Value Comments Source Heart Rate 2022-12-24 14:12:00 [facility] [place] Systolic (mm Hg) 2022-12-24 14:12:00 Akhil rial [place] Diastolic (mm Hg) 2022-12-24 14:12:00 Mem orial [place] Height 2022-12-24 14:12:00 5 [ft_i] [facility] [place] Weight 2022-12-24 14:12:00 [facility] [place] BMI Calculated 2022-12-24 14:12:00 Memori al [place] Respitory Rate 2016-11-06 12:54:00 Memori al [place] Systolic (mm Hg) 2016-11-06 12:54:00 Akhil rial [place] Diastolic (mm Hg) 2016-11-06 12:54:00 Mem orial [place] Heart Rate 2016-11-06 12:54:00 [facility] [place] Temperature Oral (F) 2016-11-06 12:54:00 98.3 F [facility] [place] Respitory Rate 2016-11-06 09:59:00 Memori al [place] Temperature Oral (F) 2016-11-06 09:59:00 98.8 F [facility] [place] Systolic (mm Hg) 2016-11-06 09:59:00 Akhil rial [place] Diastolic (mm Hg) 2016-11-06 09:59:00 Mem orial [place] Temperature Oral (F) 2016-11-06 06:20:00 98.9 F [facility] [place] Systolic (mm Hg) 2016-11-06 06:20:00 Akhil rial [place] Diastolic (mm Hg) 2016-11-06 06:20:00 Mem orial [place] Heart Rate 2016-11-06 06:20:00 [facility] [place] Respitory Rate 2016-11-06 00:24:00 Ashanti gallagher [place] Heart Rate 2016-11-06 00:24:00 [facility] [place] BMI Calculated 2016-11-04 06:11:00 Ashanti gallagher [place] Weight 2016-11-04 06:11:00 [facility] [place] Height 2016-11-04 06:11:00 172.72 cm [facility] [place] Weight 2016-11-04 02:24:00 [facility] [place] Procedures This patient has no known procedures. Plan of Care Planned Activity Planned Date Details Comments Source Future Scheduled 2022-12-23 Screening for [facility] Test 12:35:46 malignant neoplasm of colon (procedure) [code = 717024667] Future Scheduled 2022-12-23 Screening for [facility] Test 12:35:46 malignant neoplasm of colon (procedure) [code = 612148365] Future Scheduled 2022-12-23 Screening for [facility] Test 12:35:46 malignant neoplasm of colon (procedure) [code = 207805780] Future Scheduled 2022-12-23 COVID-19 VACCINE (#1) [facility] Test 12:35:46 [code = COVID-19 VACCINE (#1)] Future Scheduled 2022-12-23 Screening for [facility] Test 12:35:46 malignant neoplasm of colon (procedure) [code = [id number]] Future Scheduled 2022-12-23 Screening for [facility] Test 12:35:46 malignant neoplasm of colon (procedure) [code = 039617437] Future Scheduled 2022-12-23 SHINGLES VACCINES ([facility] 12:35:46 of 2) [code = SHINGLES VACCINES (1 of 2)] Future Scheduled 2022-12-23 INFLUENZA VACCINE [facility] Test 12:35:46 [code = INFLUENZA VACCINE] Future Scheduled 2022-10-07 COVID-19 VACCINE (#1) [facility] Test 18:18:59 [code = COVID-19 VACCINE (#1)] Future Scheduled 2022-10-07 COLONOSCOPY SCREENING [facility] Test 18:18:59 [code = COLONOSCOPY SCREENING] Future Scheduled 2022-10-07 SHINGLES VACCINES ([facility] 18:18:59 of 2) [code = SHINGLES VACCINES (1 of 2)] Future Scheduled 2022-10-07 INFLUENZA VACCINE [facility] Test 18:18:59 [code = INFLUENZA VACCINE] Future Scheduled 2022-06-17 COVID-19 VACCINE (#1) [facility] Test 11:52:21 [code = COVID-19 VACCINE (#1)] Future Scheduled 2022-06-17 COLONOSCOPY SCREENING [facility] Test 11:52:21 [code = COLONOSCOPY SCREENING] Future Scheduled 2022-06-17 SHINGLES VACCINES (1 Met [facility] Test 11:52:21 of 2) [code = [...] Date/Time Type Type Clinicians Facility Department ID 2022-12-[address] [facility] [facility] [place] [id number] [place] 11:05:05 [id number] [facility] 2022-12-[address] [facility] [id number] [place] 11:44:22 [id number] [facility] 2022-12-[address] [facility] [id number] [place] 21:15:53 [id number] [facility] 2022-12-[address] [facility] [id number] [place] 09:37:32 [id number] [facility] 2022-09-[address] [facility] [id number] [place] 10:41:01 [id number] [facility] 2022-09-06 [facility] [id number] Common 15:39:01 Tammy [id number] [facility] 2022-02-25 Outpatient Manid STFRANCINE [facility] [id number] Common 15:20:01 Tammy [id number] [facility] 2021-07-29 Outpatient MERLY Raymond [facility] [id number] Common 11:00:59 Tammy [id number] [facility] 2020-12-31 Outpatient SYSTEM, [facility] [id number] 10:35:18 PROVIDER Jorden craig 2023-01-28 2023-01-28 Outpatient MHIE MHIE [id number] Memoria 09:00:00 09:00:00 01 [facility] 2023-01-17 2023-01-[address] [facility] [id number] [place] 13:00:00 13:00:00 [facility] 2022-12-24 2022-12-25 Outpatient MHIE MHMG [id number] Memoria 14:15:00 04:59:59 Cardiology 00 [facility] 2022-12-24 2022-12-24 Outpatient Torsten Duarte MG MG [id number] 09:15:00 23:59:59 Jayantilal 00 2022-12-24 2022-12-24 Outpatient MHIE MHIE [id number] Memoria 09:15:00 09:15:00 00 [facility] 2022-12-13 2022-12-13 Office Goldy Cruz [facility] [id number] [place] 11:15:00 12:05:18 Visit [facility] [id number] H [facility] [id number] [facility] [id number] 2022-12-13 2022-12-[address] [facility] [id number] [place] 00:00:00 12:05:18 Health 2022-09-24 2022-09-[address] [facility] [id number] [place] 13:00:00 13:00:00 Health 2022-09-24 2022-09-[address] [facility] [id number] [place] 13:00:00 13:00:00 [facility] 2022-02-25 2022-02-25 [facility] [id number] Co mmon 00:00:00 00:00:00 [facility] 2021-04-09 2021-04-09 Outpatient EL KELLY, MDA MDA [id number] MD 19:53:56 19:53:56 CLAIR craig 2021-03-18 2021-03-18 Outpatient EL AGUSTIN MDA MDA [id number] MD 09:28:32 09:28:32 BELGICA, And erso RODY craig 2021-03-05 2021-03-05 Outpatient ROHINI EDWARDSAM, MDA MDA [id number] MD 21:05:45 21:05:45 CLAIR craig 2021-03-02 2021-03-02 Outpatient EL AGUSTIN MDA MDA [id number] MD 13:45:38 13:45:38 BELG[place], And erso RODY craig 2021-02-12 2021-02-12 Outpatient KELLY, MDA MDA [id number] MD 09:45:34 09:45:34 CLAIR craig 2021-02-11 2021-02-11 Outpatient EL AGUSTIN MDA MDA [id number] MD 10:33:14 10:33:14 BELGICA, And eduardoo RODY craig 2021-02-04 2021-02-04 Outpatient [facility], MDA MDA [id number] MD 08:24:32 08:24:32 WHITNEY craig 2021-01-28 2021-01-28 Outpatient EL AGUSTIN MDA MDA [id number] MD 10:52:29 10:52:29 BELGICA, And erso RODY n 2021-01-22 2021-01-22 Outpatient EL [facility], MDA MDA [id number] MD 16:10:34 16:10:34 JESSE craig 2021-01-14 2021-01-14 Outpatient EL AGUSTIN MDA MDA [id number] MD 12:20:48 12:20:48 BELG[place], And erso RODY kiara 2021-01-07 2021-01-07 Outpatient EL AGUSTIN MDA MDA [id number] MD 10:27:02 10:27:02 BELG[place], And eduardoo RODY n 2020-12-31 2020-12-31 Outpatient ROHINI CHILDRESS MDA MDA [id number] 10:21:37 10:21:37 JESSECHANDAN Deniseduardo campos n 2020-12-31 2020-12-31 Outpatient ROHINI VELEZ MDA MDA [id number] 10:21:29 10:21:29 BELG[place], And merari FINE n 2019-07-19 2019-07-19 Out[facility] [id number] Common 09:00:00 09:00:00 t [facility] [address] [facility] 2018-12-21 2018-12-21 Out[facility] [id number] Common 08:00:00 08:00:00 t [facility] [address] [facility] 2018-12-13 2018-12-13 Out[facility] [id number] Common 15:54:00 15:54:00 t [facility] [address] [facility] 2018-11-07 2018-11-07 Outpatient [facility] [id number] Common 09:00:00 09:00:00 t [facility] [address] [facility] 2016-11-04 2016-11-06 Inpatient nullFlavo [facility] [id number] Memoria 02:17:00 17:53:00 r [place] 00 l [facility] 2016-11-04 2016-11-06 Inpatient nullFlavo [facility] [id number] Memoria 02:17:00 17:53:00 r [place] 00 l [facility] 2016-11-03 2016-11-06 [facility] [id number] 21:17:00 12:53:00 [place] 00 Results Test Description Test Time Test Comments Results Result Comments Source CARDIAC ENZYMES 2016-11-06 11:41:00 Test Item Value Reference Range Interpretation Comme nts Total CK (test code = Total CK) 199 12-191 [facility] [id number] 11:41:00 Test Item Value Reference Range Interpretation Comments eGFR (test code = eGFR) 104 [facility]2017-05-06 11:41:00 Test Item Value Reference Range Interpretation Comments Chloride Lvl (test code = Chloride Lvl) 111 95-109 [facility]2017-05-06 11:41:00 Test Item Value Reference Range Interpretation Comments CO2 (test code = CO2) - [facility]2017-05-06 11:41:00 Test Item Value Reference Range Interpretation Comments Potassium Lvl (test code = Potassium 4.1 3.5-5.1 Lvl) [facility]2017-05-06 11:41:00 Test Item Value Reference Range Interpretation Comments Calcium Lvl (test code = Calcium Lvl) 8.3 8.5-10.5 [facility]2017-05-06 11:41:00 Test Item Value Reference Range Interpretation Comments AGAP (test code = AGAP) 11.1 10.0-20.0 [facility]2017-05-06 11:41:00 Test Item Value Reference Range Interpretation Comments BUN (test code = BUN) 9 7-22 [facility]2017-05-06 11:41:00 Test Item Value Reference Range Interpretation Comments Creatinine Lvl (test code = Creatinine 0.74 0.50-1.40 Lvl) [facility]2017-05-06 11:41:00 Test Item Value Reference Range Interpretation Comments Glucose Lvl (test code = Glucose Lvl) 90 70-99 [facility]2017-05-06 11:41:00 Test Item Value Reference Range Interpretation Comments Sodium Lvl (test code = Sodium Lvl) 143 135-145 [facility] [id number] 11:41:00 Test Item Value Reference Range Interpretation Comments Total CK (test code = Total CK) 199 12-191 [facility]2017-05-06 11:41:00 Test Item Value Reference Range Interpretation Comments eGFR (test code = eGFR) 104 [facility]2017-05-06 11:41:00 Test Item Value Reference Range Interpretation Comments Chloride Lvl (test code = Chloride Lvl) 111 95-109 [facility]2017-05-06 11:41:00 Test Item Value Reference Range Interpretation Comments CO2 (test code = CO2) - [facility]2017-05-06 11:41:00 Test Item Value Reference Range Interpretation Comments Potassium Lvl (test code = Potassium 4.1 3.5-5.1 Lvl) [facility]2017-05-06 11:41:00 Test Item Value Reference Range Interpretation Comments Calcium Lvl (test code = Calcium Lvl) 8.3 8.5-10.5 [facility]2017-05-06 11:41:00 Test Item Value Reference Range Interpretation Comments AGAP (test code = AGAP) 11.1 10.0-20.0 [facility]2017-05-06 11:41:00 Test Item Value Reference Range Interpretation Comments BUN (test code = BUN) 9 7-22 [facility]2017-05-06 11:41:00 Test Item Value Reference Range Interpretation Comments Creatinine Lvl (test code = Creatinine 0.74 0.50-1.40 Lvl) [facility]2017-05-06 11:41:00 Test Item Value Reference Range Interpretation Comments Glucose Lvl (test code = Glucose Lvl) 90 70-99 [facility] [id number] 11:41:00 Test Item Value Reference Range Interpretation Comments Sodium Lvl (test code = Sodium Lvl) 143 135-145 [facility] [id number] 11:41:00 Test Item Value Reference Range Interpretation Comments Total CK (test code = Total CK) 199 12-191 [facility]2017-05-06 11:41:00 Test Item Value Reference Range Interpretation Comments eGFR (test code = eGFR) 104 [facility]2017-05-06 11:41:00 Test Item Value Reference Range Interpretation Comments Chloride Lvl (test code = Chloride Lvl) 111 95-109 [facility]2017-05-06 11:41:00 Test Item Value Reference Range Interpretation Comments CO2 (test code = CO2) 25 24-32 [facility]2017-05-06 11:41:00 Test Item Value Reference Range Interpretation Comments Potassium Lvl (test code = Potassium 4.1 3.5-5.1 Lvl) [facility]2017-05-06 11:41:00 Test Item Value Reference Range Interpretation Comments Calcium Lvl (test code = Calcium Lvl) 8.3 8.5-10.5 [facility]2017-05-06 11:41:00 Test Item Value Reference Range Interpretation Comments AGAP (test code = AGAP) 11.1 10.0-20.0 [facility]2017-05-06 11:41:00 Test Item Value Reference Range Interpretation Comments BUN (test code = BUN) 9 7-22 [facility]2017-05-06 11:41:00 Test Item Value Reference Range Interpretation Comments Creatinine Lvl (test code = Creatinine 0.74 0.50-1.40 Lvl) [facility]2017-05-06 11:41:00 Test Item Value Reference Range Interpretation Comments Glucose Lvl (test code = Glucose Lvl) 90 70-99 [facility]2017-05-06 11:41:00 Test Item Value Reference Range Interpretation Comments Sodium Lvl (test code = Sodium Lvl) 143 135-145 [facility] [id number] 11:41:00 Test Item Value Reference Range Interpretation Comments Total CK (test code = Total CK) 199 12-191 [facility]2017-05-06 11:41:00 Test Item Value Reference Range Interpretation Comments eGFR (test code = eGFR) 104 [facility]2017-05-06 11:41:00 Test Item Value Reference Range Interpretation Comments Chloride Lvl (test code = Chloride Lvl) 111 95-109 [facility]2017-05-06 11:41:00 Test Item Value Reference Range Interpretation Comments CO2 (test code = CO2) 25 24-32 [facility]2017-05-06 11:41:00 Test Item Value Reference Range Interpretation Comments Potassium Lvl (test code = Potassium 4.1 3.5-5.1 Lvl) [facility]2017-05-06 11:41:00 Test Item Value Reference Range Interpretation Comments Calcium Lvl (test code = Calcium Lvl) 8.3 8.5-10.5 [facility]2017-05-06 11:41:00 Test Item Value Reference Range Interpretation Comments AGAP (test code = AGAP) 11.1 10.0-20.0 [facility]2017-05-06 11:41:00 Test Item Value Reference Range Interpretation Comments BUN (test code = BUN) 9 7-22 [facility]2017-05-06 11:41:00 Test Item Value Reference Range Interpretation Comments Creatinine Lvl (test code = Creatinine 0.74 0.50-1.40 Lvl) [facility]2017-05-06 11:41:00 Test Item Value Reference Range Interpretation Comments Glucose Lvl (test code = Glucose Lvl) 90 70-99 [facility]2017-05-06 11:41:00 Test Item Value Reference Range Interpretation Comments Sodium Lvl (test code = Sodium Lvl) 143 135-145 [facility] [id number] 10:32:00 Test Item Value Reference Range Interpretation Comments Total CK (test code = Total CK) 476 12-191 [facility]2017-05-05 10:32:00 Test Item Value Reference Range Interpretation Comments Calcium Lvl (test code = Calcium Lvl) 8.2 8.5-10.5 [facility]2017-05-05 10:32:00 Test Item Value Reference Range Interpretation Comments CO2 (test code = CO2) [facility]2017-05-05 10:32:00 Test Item Value Reference Range Interpretation Comments Chloride Lvl (test code = Chloride Lvl) 113 95-109 [facility]2017-05-05 10:32:00 Test Item Value Reference Range Interpretation Comments Potassium Lvl (test code = Potassium 4.0 3.5-5.1 Lvl) [facility]2017-05-05 10:32:00 Test Item Value Reference Range Interpretation Comments Sodium Lvl (test code = Sodium Lvl) 143 135-145 [facility]2017-05-05 10:32:00 Test Item Value Reference Range Interpretation Comments Creatinine Lvl (test code = Creatinine 0.77 0.50-1.40 Lvl) [facility]2017-05-05 10:32:00 Test Item Value Reference Range Interpretation Comments BUN (test code = BUN) 14 01-22 [facility]2017-05-05 10:32:00 Test Item Value Reference Range Interpretation Comments Glucose Lvl (test code = Glucose Lvl) 96 70-99 [facility]2017-05-05 10:32:00 Test Item Value Reference Range Interpretation Comments eGFR (test code = eGFR) 102 [facility]2017-05-05 10:32:00 Test Item Value Reference Range Interpretation Comments AGAP (test code = AGAP) 9.0 10.0-20.0 [facility] [id number] 10:32:00 Test Item Value Reference Range Interpretation Comments Total CK (test code = Total CK) 476 12-191 [facility]2017-05-05 10:32:00 Test Item Value Reference Range Interpretation Comments Calcium Lvl (test code = Calcium Lvl) 8.2 8.5-10.5 [facility]2017-05-05 10:32:00 Test Item Value Reference Range Interpretation Comments CO2 (test code = CO2) 25 24-32 [facility]2017-05-05 10:32:00 Test Item Value Reference Range Interpretation Comments Chloride Lvl (test code = Chloride Lvl) 113 95-109 [facility]2017-05-05 10:32:00 Test Item Value Reference Range Interpretation Comments Potassium Lvl (test code = Potassium 4.0 3.5-5.1 Lvl) [facility]2017-05-05 10:32:00 Test Item Value Reference Range Interpretation Comments Sodium Lvl (test code = Sodium Lvl) 143 135-145 [facility]2017-05-05 10:32:00 Test Item Value Reference Range Interpretation Comments Creatinine Lvl (test code = Creatinine 0.77 0.50-1.40 Lvl) [facility]2017-05-05 10:32:00 Test Item Value Reference Range Interpretation Comments BUN (test code = BUN) 14 7-22 [facility]2017-05-05 10:32:00 Test Item Value Reference Range Interpretation Comments Glucose Lvl (test code = Glucose Lvl) 96 70-99 [facility] [id number] 10:32:00 Test Item Value Reference Range Interpretation Comments eGFR (test code = eGFR) 102 [facility]2017-05-05 10:32:00 Test Item Value Reference Range Interpretation Comments AGAP (test code = AGAP) 9.0 10.0-20.0 [facility] [id number] 10:32:00 Test Item Value Reference Range Interpretation Comments Total CK (test code = Total CK) 476 [facility]2017-05-05 10:32:00 Test Item Value Reference Range Interpretation Comments Calcium Lvl (test code = Calcium Lvl) 8.2 8.5-10.5 [facility]2017-05-05 10:32:00 Test Item Value Reference Range Interpretation Comments CO2 (test code = CO2) 25 24-32 [facility]2017-05-05 10:32:00 Test Item Value Reference Range Interpretation Comments Chloride Lvl (test code = Chloride Lvl) 113 95-109 [facility]2017-05-05 10:32:00 Test Item Value Reference Range Interpretation Comments Potassium Lvl (test code = Potassium 4.0 3.5-5.1 Lvl) [facility]2017-05-05 10:32:00 Test Item Value Reference Range Interpretation Comments Sodium Lvl (test code = Sodium Lvl) 143 135-145 [facility]2017-05-05 10:32:00 Test Item Value Reference Range Interpretation Comments Creatinine Lvl (test code = Creatinine 0.77 0.50-1.40 Lvl) [facility]2017-05-05 10:32:00 Test Item Value Reference Range Interpretation Comments BUN (test code = BUN) 14 7-22 [facility]2017-05-05 10:32:00 Test Item Value Reference Range Interpretation Comments Glucose Lvl (test code = Glucose Lvl) 96 70-99 [facility]2017-05-05 10:32:00 Test Item Value Reference Range Interpretation Comments eGFR (test code = eGFR) 102 [facility]2017-05-05 10:32:00 Test Item Value Reference Range Interpretation Comments AGAP (test code = AGAP) 9.0 10.0-20.0 [facility] [id number] 10:32:00 Test Item Value Reference Range Interpretation Comments Total CK (test code = Total CK) 476 12191 [facility]2017-05-05 10:32:00 Test Item Value Reference Range Interpretation Comments Calcium Lvl (test code = Calcium Lvl) 8.2 8.5-10.5 [facility]2017-05-05 10:32:00 Test Item Value Reference Range Interpretation Comments CO2 (test code = CO2) 25 24-32 [facility]2017-05-05 10:32:00 Test Item Value Reference Range Interpretation Comments Chloride Lvl (test code = Chloride Lvl) 113 95-109 [facility]2017-05-05 10:32:00 Test Item Value Reference Range Interpretation Comments Potassium Lvl (test code = Potassium 4.0 3.5-5.1 Lvl) [facility]2017-05-05 10:32:00 Test Item Value Reference Range Interpretation Comments Sodium Lvl (test code = Sodium Lvl) 143 135-145 [facility]2017-05-05 10:32:00 Test Item Value Reference Range Interpretation Comments Creatinine Lvl (test code = Creatinine 0.77 0.50-1.40 Lvl) [facility]2017-05-05 10:32:00 Test Item Value Reference Range Interpretation Comments BUN (test code = BUN) 14 7-22 [facility]2017-05-05 10:32:00 Test Item Value Reference Range Interpretation Comments Glucose Lvl (test code = Glucose Lvl) 96 70-99 [facility]2017-05-05 10:32:00 Test Item Value Reference Range Interpretation Comments eGFR (test code = eGFR) 102 [facility]2017-05-05 10:32:00 Test Item Value Reference Range Interpretation Comments AGAP (test code = AGAP) 9.0 10.0-20.0 [facility]2017-[facility]-04 16:45:00 Test Item Value Reference Range Interpretation Comments CK MB Index (test 0.7 See_Comment [Automate d message] The code = CK MB Index) system w [facility] generated this result transmit lani reference range : <=2.5. The reference range was not used to interpr et this result as derek l/abnormal. [facility]2017-05-04 16:45:00 Test Item Value Reference Range Interpretation Comments CK MB (test code = CK MB) 7.9 0.5-3.6 [facility]2017-05-04 16:45:00 Test Item Value Reference Range Interpretation Comments Troponin-I (test code 0.02 See_Comment [Auto mated message] The = Troponin-I) system which g enerated this result transmit lani reference range : <=0.40. The reference r tiesha was not used to interpr et this result as derek l/abnormal. [facility] Hospital[facility]ashiCARDIAC [id number] 16:45:00 Test Item Value Reference Range Interpretation Comments Total CK (test code = Total CK) 1210 12-191 [facility] [id number] 16:45:00 Test Item Value Reference Range Interpretation Comments eGFR (test code = eGFR) 100 [facility] [id number] 16:45:00 Test Item Value Reference Range Interpretation Comments Alk Phos (test code = Alk Phos) 56 39-136 [facility] [id number] 16:45:00 Test Item Value Reference Range Interpretation Comments Bili Total (test code = Bili Total) 0.5 0.2-1.3 [facility] [id number] 16:45:00 Test Item Value Reference Range Interpretation Comments AST (test code = AST) 89 See_Comment [Auto mated message] The system which ge nerated this result transmit lani reference range : <=37. The reference range was not used to interpr et this result as derek l/abnormal. [facility] [employer] [id number] 16:45:00 Test Item Value Reference Range Interpretation Comments ALT (test code = ALT) 91 See_Comment [Auto mated message] The system which ge nerated this result transmit lani reference range : <=65. The reference range was not used to interpr et this result as derek l/abnormal. [facility] [employer] [id number] 16:45:00 Test Item Value Reference Range Interpretation Comments A/G Ratio (test code = A/G Ratio) 1.0 0.7-1.6 [facility] [id number] 16:45:00 Test Item Value Reference Range Interpretation Comments Globulin (test code = Globulin) 2.9 2.7-4.2 [facility] [id number] 16:45:00 Test Item Value Reference Range Interpretation Comments Albumin Lvl (test code = Albumin Lvl) 2.9 3.5-5.0 [facility] [id number] 16:45:00 Test Item Value Reference Range Interpretation Comments B/C Ratio (test code = B/C Ratio) 22 6-25 [facility]2017-05-04 16:45:00 Test Item Value Reference Range Interpretation Comments Total Protein (test code = Total 5.8 6.4-8.4 Protein) [facility]2017-05-04 16:45:00 Test Item Value Reference Range Interpretation Comments Calcium Lvl (test code = Calcium Lvl) 7.8 8.5-10.5 [facility]2017-05-04 16:45:00 Test Item Value Reference Range Interpretation Comments BUN (test code = BUN) 18 7-22 [facility]2017-05-04 16:45:00 Test Item Value Reference Range Interpretation Comments Creatinine Lvl (test code = Creatinine 0.80 0.50-1.40 Lvl) [facility]2017-05-04 16:45:00 Test Item Value Reference Range Interpretation Comments Glucose Lvl (test code = Glucose Lvl) 100 70-99 [facility]2017-05-04 16:45:00 Test Item Value Reference Range Interpretation Comments CO2 (test code = CO2) 24 24-32 [facility]2017-05-04 16:45:00 Test Item Value Reference Range Interpretation Comments AGAP (test code = AGAP) 13.2 10.0-20.0 [facility]2017-05-04 16:45:00 Test Item Value Reference Range Interpretation Comments Potassium Lvl (test code = Potassium 3.2 3.5-5.1 Lvl) [facility]2017-05-04 16:45:00 Test Item Value Reference Range Interpretation Comments Chloride Lvl (test code = Chloride Lvl) 113 95-109 [facility]2017-05-04 16:45:00 Test Item Value Reference Range Interpretation Comments Sodium Lvl (test code = Sodium Lvl) 147 135-145 [id number] 16:45:00 Test Item Value Reference Range Interpretation Comments Hep C Ab (test code = Negative *NA*(11/04/16 Hep C Ab) 11:45 AM) [facility] [id number] 16:45:00 Test Item Value Reference Range Interpretation Comments Hep B Core IgM (test Negative *NA*(11/04/16 code = Hep B Core 11:45 AM) IgM) [facility] [id number] 16:45:00 Test Item Value Reference Range Interpretation Comments Hep A IgM (test code Negative *NA*(11/04/16 = Hep A IgM) 11:45 AM) [facility] [id number] 16:45:00 Test Item Value Reference Range Interpretation Comments Hep Bs Ag (test code Negative *NA*(11/04/16 = Hep Bs Ag) 11:45 AM) [facility] Dafiti2017-05-04 16:45:00 Test Item Value Reference Range Interpretation Comments CK MB Index (test 0.7 See_Comment [Automate d message] The code = CK MB Index) system w [facility] generated this result transmit lani reference range : <=2.5. The reference range was not used to interpr et this result as derek l/abnormal. [facility] Dafiti2017-05-04 16:45:00 Test Item Value Reference Range Interpretation Comments CK MB (test code = CK MB) 7.9 0.5-3.6 [facility] Dafiti2017-05-04 16:45:00 Test Item Value Reference Range Interpretation Comments Troponin-I (test code 0.02 See_Comment [Auto mated message] The = Troponin-I) system which g enerated this result transmit lani reference range : <=0.40. The reference r tiesha was not used to interpr et this result as derek l/abnormal. [employer]2017-05-04 16:45:00 Test Item Value Reference Range Interpretation Comments Total CK (test code = Total CK) 1210 12-191 [facility] [employer]2017-05-04 16:45:00 Test Item Value Reference Range Interpretation Comments eGFR (test code = eGFR) 100 [facility] [employer]2017-05-04 16:45:00 Test Item Value Reference Range Interpretation Comments Alk Phos (test code = Alk Phos) 56 39-136 [facility] [employer]2017-05-04 16:45:00 Test Item Value Reference Range Interpretation Comments Bili Total (test code = Bili Total) 0.5 0.2-1.3 [facility] [employer]2017-05-04 16:45:00 Test Item Value Reference Range Interpretation Comments AST (test code = AST) 89 See_Comment [Auto mated message] The system which ge nerated this result transmit lani reference range : <=37. The reference range was not used to interpr et this result as derek l/abnormal. [facility]2017-05-04 16:45:00 Test Item Value Reference Range Interpretation Comments ALT (test code = ALT) 91 See_Comment [Auto mated message] The system which ge nerated this result transmit lani reference range : <=65. The reference range was not used to interpr et this result as derek l/abnormal. [facility]2017-05-04 16:45:00 Test Item Value Reference Range Interpretation Comments A/G Ratio (test code = A/G Ratio) 1.0 0.7-1.6 [place] [id number] 16:45:00 Test Item Value Reference Range Interpretation Comments Globulin (test code = Globulin) 2.9 2.7-4.2 [facility]2017-05-04 16:45:00 Test Item Value Reference Range Interpretation Comments Albumin Lvl (test code = Albumin Lvl) 2.9 3.5-5.0 [facility]2017-05-04 16:45:00 Test Item Value Reference Range Interpretation Comments B/C Ratio (test code = B/C Ratio) 22 6-25 [facility]2017-05-04 16:45:00 Test Item Value Reference Range Interpretation Comments Total Protein (test code = Total 5.8 6.4-8.4 Protein) [facility]2017-05-04 16:45:00 Test Item Value Reference Range Interpretation Comments Calcium Lvl (test code = Calcium Lvl) 7.8 8.5-10.5 [facility]2017-05-04 16:45:00 Test Item Value Reference Range Interpretation Comments BUN (test code = BUN) 18 7-22 [facility]2017-05-04 16:45:00 Test Item Value Reference Range Interpretation Comments Creatinine Lvl (test code = Creatinine 0.80 0.50-1.40 Lvl) [facility]2017-05-04 16:45:00 Test Item Value Reference Range Interpretation Comments Glucose Lvl (test code = Glucose Lvl) 100 70-99 [facility] HospitalMedPageToday [id number] 16:45:00 Test Item Value Reference Range Interpretation Comments CO2 (test code = CO2) 24 24-32 [facility] HospitalMedPageToday [id number] 16:45:00 Test Item Value Reference Range Interpretation Comments AGAP (test code = AGAP) 13.2 10.0-20.0 [facility] HospitalMedPageToday [id number] 16:45:00 Test Item Value Reference Range Interpretation Comments Potassium Lvl (test code = Potassium 3.2 3.5-5.1 Lvl) [facility] HospitalMedPageToday [id number] 16:45:00 Test Item Value Reference Range Interpretation Comments Chloride Lvl (test code = Chloride Lvl) 113 95-109 [facility] HospitalMedPageToday [id number] 16:45:00 Test Item Value Reference Range Interpretation Comments Sodium Lvl (test code = Sodium Lvl) 147 135-145 [facility] H[id number] 16:45:00 Test Item Value Reference Range Interpretation Comments Hep C Ab (test code = Negative *NA*(11/04/16 Hep C Ab) 11:45 AM) [facility] H[id number] 16:45:00 Test Item Value Reference Range Interpretation Comments Hep B Core IgM (test Negative *NA*(11/04/16 code = Hep B Core 11:45 AM) IgM) [facility] Ho[id number] 16:45:00 Test Item Value Reference Range Interpretation Comments Hep A IgM (test code Negative *NA*(11/04/16 = Hep A IgM) 11:45 AM) [facility] [id number] 16:45:00 Test Item Value Reference Range Interpretation Comments Hep Bs Ag (test code Negative *NA*(11/04/16 = Hep Bs Ag) 11:45 AM) [facility] HospitalArkAC [id number] 16:45:00 Test Item Value Reference Range Interpretation Comments CK MB Index (test 0.7 See_Comment [Automate d message] The code = CK MB Index) system w [facility] generated this result transmit lani reference range : <=2.5. The reference range was not used to interpr et this result as derek l/abnormal. [facility] HospitalTouchBase Inc.2017-05-04 16:45:00 Test Item Value Reference Range Interpretation Comments CK MB (test code = CK MB) 7.9 0.5-3.6 [facility] [employer] [id number] 16:45:00 Test Item Value Reference Range Interpretation Comments Troponin-I (test code 0.02 See_Comment [Auto mated message] The = Troponin-I) system which g enerated this result transmit lani reference range : <=0.40. The reference r tiesha was not used to interpr et this result as derek l/abnormal. [facility] [employer] [id number] 16:45:00 Test Item Value Reference Range Interpretation Comments Total CK (test code = Total CK) 1210 12-191 [facility] [employer] [id number] 16:45:00 Test Item Value Reference Range Interpretation Comments eGFR (test code = eGFR) 100 [facility] [employer] [id number] 16:45:00 Test Item Value Reference Range Interpretation Comments Alk Phos (test code = Alk Phos) 56 39-136 [facility] [employer] [id number] 16:45:00 Test Item Value Reference Range Interpretation Comments Bili Total (test code = Bili Total) 0.5 0.2-1.3 [facility] [employer] [id number] 16:45:00 Test Item Value Reference Range Interpretation Comments AST (test code = AST) 89 See_Comment [Auto mated message] The system which ge nerated this result transmit lani reference range : <=37. The reference range was not used to interpr et this result as derek l/abnormal. [employer] [id number] 16:45:00 Test Item Value Reference Range Interpretation Comments ALT (test code = ALT) 91 See_Comment [Auto mated message] The system which ge nerated this result transmit lani reference range : <=65. The reference range was not used to interpr et this result as derek l/abnormal. [employer]2017-05-04 16:45:00 Test Item Value Reference Range Interpretation Comments A/G Ratio (test code = A/G Ratio) 1.0 0.7-1.6 [facility] [employer] [id number] 16:45:00 Test Item Value Reference Range Interpretation Comments Globulin (test code = Globulin) 2.9 2.7-4.2 [facility]2017-05-04 16:45:00 Test Item Value Reference Range Interpretation Comments Albumin Lvl (test code = Albumin Lvl) 2.9 3.5-5.0 [facility]2017-05-04 16:45:00 Test Item Value Reference Range Interpretation Comments B/C Ratio (test code = B/C Ratio) 22 6-25 [facility]2017-05-04 16:45:00 Test Item Value Reference Range Interpretation Comments Total Protein (test code = Total 5.8 6.4-8.4 Protein) [facility]2017-05-04 16:45:00 Test Item Value Reference Range Interpretation Comments Calcium Lvl (test code = Calcium Lvl) 7.8 8.5-10.5 [facility]2017-05-04 16:45:00 Test Item Value Reference Range Interpretation Comments BUN (test code = BUN) 18 7-22 [facility]2017-05-04 16:45:00 Test Item Value Reference Range Interpretation Comments Creatinine Lvl (test code = Creatinine 0.80 0.50-1.40 Lvl) [facility]2017-05-04 16:45:00 Test Item Value Reference Range Interpretation Comments Glucose Lvl (test code = Glucose Lvl) 100 70-99 [facility]2017-05-04 16:45:00 Test Item Value Reference Range Interpretation Comments CO2 (test code = CO2) 24 24-32 [facility]2017-05-04 16:45:00 Test Item Value Reference Range Interpretation Comments AGAP (test code = AGAP) 13.2 10.0-20.0 [facility]2017-05-04 16:45:00 Test Item Value Reference Range Interpretation Comments Potassium Lvl (test code = Potassium 3.2 3.5-5.1 Lvl) [facility]2017-05-04 16:45:00 Test Item Value Reference Range Interpretation Comments Chloride Lvl (test code = Chloride Lvl) 113 95-109 [facility]2017-05-04 16:45:00 Test Item Value Reference Range Interpretation Comments Sodium Lvl (test code = Sodium Lvl) 147 135-145 [facility] [id number] 16:45:00 Test Item Value Reference Range Interpretation Comments Hep C Ab (test code = Negative *NA*(11/04/16 Hep C Ab) 11:45 AM) [facility] [id number] 16:45:00 Test Item Value Reference Range Interpretation Comments Hep B Core IgM (test Negative *NA*(11/04/16 code = Hep B Core 11:45 AM) IgM) [facility] [id number] 16:45:00 Test Item Value Reference Range Interpretation Comments Hep A IgM (test code Negative *NA*(11/04/16 = Hep A IgM) 11:45 AM) [facility] [id number] 16:45:00 Test Item Value Reference Range Interpretation Comments Hep Bs Ag (test code Negative *NA*(11/04/16 = Hep Bs Ag) 11:45 AM) [facility] HospitalTouchBase Inc.2017-05-04 16:45:00 Test Item Value Reference Range Interpretation Comments CK MB Index (test 0.7 See_Comment [Automate d message] The code = CK MB Index) system w [facility] generated this result transmit lani reference range : <=2.5. The reference range was not used to interpr et this result as derek l/abnormal. [facility] HospitalTouchBase Inc.2017-05-04 16:45:00 Test Item Value Reference Range Interpretation Comments CK MB (test code = CK MB) 7.9 0.5-3.6 [facility] HospitalTouchBase Inc.2017-05-04 16:45:00 Test Item Value Reference Range Interpretation Comments Troponin-I (test code 0.02 See_Comment [Auto mated message] The = Troponin-I) system which g enerated this result transmit lani reference range : <=0.40. The reference r tiesha was not used to interpr et this result as derek l/abnormal. [facility] [employer]2017-05-04 16:45:00 Test Item Value Reference Range Interpretation Comments Total CK (test code = Total CK) 1210 12-191 [facility] [employer] [id number] 16:45:00 Test Item Value Reference Range Interpretation Comments eGFR (test code = eGFR) 100 [facility] [employer] [id number] 16:45:00 Test Item Value Reference Range Interpretation Comments Alk Phos (test code = Alk Phos) 56 39-136 [facility]2017-05-04 16:45:00 Test Item Value Reference Range Interpretation Comments Bili Total (test code = Bili Total) 0.5 0.2-1.3 [facility]2017-05-04 16:45:00 Test Item Value Reference Range Interpretation Comments AST (test code = AST) 89 See_Comment [Auto mated message] The system which ge nerated this result transmit lani reference range : <=37. The reference range was not used to interpr et this result as derek l/abnormal. [facility]2017-05-04 16:45:00 Test Item Value Reference Range Interpretation Comments ALT (test code = ALT) 91 See_Comment [Auto mated message] The system which ge nerated this result transmit lani reference range : <=65. The reference range was not used to interpr et this result as derek l/abnormal. [facility]2017-05-04 16:45:00 Test Item Value Reference Range Interpretation Comments A/G Ratio (test code = A/G Ratio) 1.0 0.7-1.6 [place] [id number] 16:45:00 Test Item Value Reference Range Interpretation Comments Globulin (test code = Globulin) 2.9 2.7-4.2 [facility]2017-05-04 16:45:00 Test Item Value Reference Range Interpretation Comments Albumin Lvl (test code = Albumin Lvl) 2.9 3.5-5.0 [facility]2017-05-04 16:45:00 Test Item Value Reference Range Interpretation Comments B/C Ratio (test code = B/C Ratio) 22 6-25 [place] [id number] 16:45:00 Test Item Value Reference Range Interpretation Comments Total Protein (test code = Total 5.8 6.4-8.4 Protein) [facility]2017-05-04 16:45:00 Test Item Value Reference Range Interpretation Comments Calcium Lvl (test code = Calcium Lvl) 7.8 8.5-10.5 [facility]2017-05-04 16:45:00 Test Item Value Reference Range Interpretation Comments BUN (test code = BUN) 18 7-22 [place] [id number] 16:45:00 Test Item Value Reference Range Interpretation Comments Creatinine Lvl (test code = Creatinine 0.80 0.50-1.40 Lvl) [facility] CenterCHEM [id number] 16:45:00 Test Item Value Reference Range Interpretation Comments Glucose Lvl (test code = Glucose Lvl) 100 70-99 [facility] [id number] 16:45:00 Test Item Value Reference Range Interpretation Comments CO2 (test code = CO2) 24 24-32 [facility] CenterCHE[facility] [id number] 16:45:00 Test Item Value Reference Range Interpretation Comments AGAP (test code = AGAP) 13.2 10.0-20.0 [facility] CenterCHE[facility] [id number] 16:45:00 Test Item Value Reference Range Interpretation Comments Potassium Lvl (test code = Potassium 3.2 3.5-5.1 Lvl) [facility] [id number] 16:45:00 Test Item Value Reference Range Interpretation Comments Chloride Lvl (test code = Chloride Lvl) 113 95-109 [facility] CenterCHE[facility] [id number] 16:45:00 Test Item Value Reference Range Interpretation Comments Sodium Lvl (test code = Sodium Lvl) 147 135-145 [facility] [id number] 16:45:00 Test Item Value Reference Range Interpretation Comments Hep C Ab (test code = Negative *NA*(11/04/16 Hep C Ab) 11:45 AM) [facility] [id number] 16:45:00 Test Item Value Reference Range Interpretation Comments Hep B Core IgM (test Negative *NA*(11/04/16 code = Hep B Core 11:45 AM) IgM) [facility] [id number] 16:45:00 Test Item Value Reference Range Interpretation Comments Hep A IgM (test code Negative *NA*(11/04/16 = Hep A IgM) 11:45 AM) [facility] H[id number] 16:45:00 Test Item Value Reference Range Interpretation Comments Hep Bs Ag (test code Negative *NA*(11/04/16 = Hep Bs Ag) 11:45 AM) [facility] CenterDR[facility] [id number] 16:06:00 Test Item Value Reference Range Interpretation Comments U Cocaine Scr (test Positive *ABN*(11/04/16 code = U Cocaine Scr) 11:06 AM) [facility] [id number] 16:06:00 Test Item Value Reference Range Interpretation Comments U Angie Scr (test code Negative *NA*(11/04/16 = U Angie Scr) 11:06 AM) [facility] [id number] 16:06:00 Test Item Value Reference Range Interpretation Comments U Benzodia Scr (test Negative *NA*(11/04/16 code = U Benzodia Scr) 11:06 AM) [facility] [id number] 16:06:00 Test Item Value Reference Range Interpretation Comments UDS Note (test code = See Note (11/04/16 11:06 UDS Note) AM) [facility] [id number] 16:06:00 Test Item Value Reference Range Interpretation Comments U Phencyc Scr (test Negative *NA*(11/04/16 code = U Phencyc Scr) 11:06 AM) [facility] [id number] 16:06:00 Test Item Value Reference Range Interpretation Comments U Cannab Scr (test Negative *NA*(11/04/16 code = U Cannab Scr) 11:06 AM) [facility] [id number] 16:06:00 Test Item Value Reference Range Interpretation Comments U Opiate Scr (test Negative *NA*(11/04/16 code = U Opiate Scr) 11:06 AM) [facility] [id number] 16:06:00 Test Item Value Reference Range Interpretation Comments U Amph Scr (test code Negative *NA*(11/04/16 = U Amph Scr) 11:06 AM) [facility] [id number] 16:06:00 Test Item Value Reference Range Interpretation Comments UA RBC (test None Seen See_Comment [Automated mes [place]] code = UA RBC) (11/04/16 11:06 The system w hich AM) generated this result transmitted ref erence range: <=2. The reference range was not used to int erpret this result as normal/abnormal . [facility] [id number] 16:06:00 Test Item Value Reference Range Interpretation Comments UA WBC (test code = UA WBC) 0-2 /HPF [facility] [id number] 16:06:00 Test Item Value Reference Range Interpretation Comments UA Sq Epi (test code = UA Sq Occasional /LPF Epi) [facility] [id number] 16:06:00 Test Item Value Reference Range Interpretation Comments UA Bacteria (test code = UA Occasional /HPF Bacteria) [facility] [id number] 16:06:00 Test Item Value Reference Range Interpretation Comments UA Mucus (test code = UA Mucus) Few /LPF [facility] [id number] 16:06:00 Test Item Value Reference Range Interpretation Comments Micro? (test code = Performed (11/04/16 11:06 Micro?) AM) [facility] AND [id number] 16:06:00 Test Item Value Reference Range Interpretation Comments UA Nitrite (test code Negative (11/04/16 11:06 = UA Nitrite) AM) [facility] AND [id number] 16:06:00 Test Item Value Reference Range Interpretation Comments UA Leuk Est (test Negative (11/04/16 11:06 code = UA Leuk Est) AM) [facility] AND [id number] 16:06:00 Test Item Value Reference Range Interpretation Comments UA Urobilinogen (test code = UA 4.0 0.1-1.0 Urobilinogen) [facility] AND [id number] 16:06:00 Test Item Value Reference Range Interpretation Comments UA Protein (test code = UA Protein) 30 mg/dL [facility] AND [id number] 16:06:00 Test Item Value Reference Range Interpretation Comments UA Glucose (test code Negative (11/04/16 11:06 = UA Glucose) AM) [facility] AND [id number] 16:06:00 Test Item Value Reference Range Interpretation Comments UA Spec Grav (test code = UA Spec 1.020 1 Grav) [facility] AND [id number] 16:06:00 Test Item Value Reference Range Interpretation Comments UA Color (test code = Yellow *NA*(11/04/16 UA Color) 11:06 AM) [facility] AND [id number] 16:06:00 Test Item Value Reference Range Interpretation Comments UA Turbidity (test code = Clear (11/04/16 11:06 UA Turbidity) AM) [facility] [id number] 16:06:00 Test Item Value Reference Range Interpretation Comments UA Bili (test code = Moderate 1*ABN*(11/04/16 UA Bili) 11:06 AM) [facility] [id number] 16:06:00 Test Item Value Reference Range Interpretation Comments UA Ketones (test code = UA Ketones) 40 mg/dL [facility] [id number] 16:06:00 Test Item Value Reference Range Interpretation Comments UA Blood (test code = Negative (11/04/16 11:06 UA Blood) AM) [facility] [id number] 16:06:00 Test Item Value Reference Range Interpretation Comments UA pH (test code = UA pH) 6.0 1 5.0-8.0 [facility] [id number] 16:06:00 Test Item Value Reference Range Interpretation Comments U Cocaine Scr (test Positive *ABN*(11/04/16 code = U Cocaine Scr) 11:06 AM) [facility] [id number] 16:06:00 Test Item Value Reference Range Interpretation Comments U Angie Scr (test code Negative *NA*(11/04/16 = U Angie Scr) 11:06 AM) [facility] [id number] 16:06:00 Test Item Value Reference Range Interpretation Comments U Benzodia Scr (test Negative *NA*(11/04/16 code = U Benzodia Scr) 11:06 AM) [facility] [id number] 16:06:00 Test Item Value Reference Range Interpretation Comments UDS Note (test code = See Note (11/04/16 11:06 UDS Note) AM) [facility] [id number] 16:06:00 Test Item Value Reference Range Interpretation Comments U Phencyc Scr (test Negative *NA*(11/04/16 code = U Phencyc Scr) 11:06 AM) [facility] [id number] 16:06:00 Test Item Value Reference Range Interpretation Comments U Cannab Scr (test Negative *NA*(11/04/16 code = U Cannab Scr) 11:06 AM) [facility] [id number] 16:06:00 Test Item Value Reference Range Interpretation Comments U Opiate Scr (test Negative *NA*(11/04/16 code = U Opiate Scr) 11:06 AM) [facility] [id number] 16:06:00 Test Item Value Reference Range Interpretation Comments U Amph Scr (test code Negative *NA*(11/04/16 = U Amph Scr) 11:06 AM) [facility] [id number] 16:06:00 Test Item Value Reference Range Interpretation Comments UA RBC (test None Seen See_Comment [Automated mes [place]] code = UA RBC) (11/04/16 11:06 The system w hich AM) generated this result transmitted ref erence range: <=2. The reference range was not used to int erpret this result as normal/abnormal . [facility] [id number] 16:06:00 Test Item Value Reference Range Interpretation Comments UA WBC (test code = UA WBC) 0-2 /HPF [facility] [id number] 16:06:00 Test Item Value Reference Range Interpretation Comments UA Sq Epi (test code = UA Sq Occasional /LPF Epi) [facility] [id number] 16:06:00 Test Item Value Reference Range Interpretation Comments UA Bacteria (test code = UA Occasional /HPF Bacteria) [facility] [id number] 16:06:00 Test Item Value Reference Range Interpretation Comments UA Mucus (test code = UA Mucus) Few /LPF [facility] [id number] 16:06:00 Test Item Value Reference Range Interpretation Comments Micro? (test code = Performed (11/04/16 11:06 Micro?) AM) [facility] [id number] 16:06:00 Test Item Value Reference Range Interpretation Comments UA Nitrite (test code Negative (11/04/16 11:06 = UA Nitrite) AM) [facility] [id number] 16:06:00 Test Item Value Reference Range Interpretation Comments UA Leuk Est (test Negative (11/04/16 11:06 code = [facility] Leuk Est) AM) [facility] [id number] 16:06:00 Test Item Value Reference Range Interpretation Comments UA Urobilinogen (test code = UA 4.0 0.1-1.0 Urobilinogen) [facility] [id number] 16:06:00 Test Item Value Reference Range Interpretation Comments UA Protein (test code = UA Protein) 30 mg/dL [facility] [id number] 16:06:00 Test Item Value Reference Range Interpretation Comments UA Glucose (test code Negative (11/04/16 11:06 = UA Glucose) AM) [facility] [id number] 16:06:00 Test Item Value Reference Range Interpretation Comments UA Spec Grav (test code = UA Spec 1.020 1 Grav) [facility] [id number] 16:06:00 Test Item Value Reference Range Interpretation Comments UA Color (test code = Yellow *NA*(11/04/16 UA Color) 11:06 AM) [facility] [id number] 16:06:00 Test Item Value Reference Range Interpretation Comments UA Turbidity (test code = Clear (11/04/16 11:06 UA Turbidity) AM) [facility] [id number] 16:06:00 Test Item Value Reference Range Interpretation Comments UA Bili (test code = Moderate 1*ABN*(11/04/16 UA Bili) 11:06 AM) [facility] [id number] 16:06:00 Test Item Value Reference Range Interpretation Comments UA Ketones (test code = UA Ketones) 40 mg/dL [facility] [id number] 16:06:00 Test Item Value Reference Range Interpretation Comments UA Blood (test code = Negative (11/04/16 11:06 UA Blood) AM) [facility] [id number] 16:06:00 Test Item Value Reference Range Interpretation Comments UA pH (test code = UA pH) 6.0 1 5.0-8.0 [facility] [id number] 16:06:00 Test Item Value Reference Range Interpretation Comments U Cocaine Scr (test Positive *ABN*(11/04/16 code = U Cocaine Scr) 11:06 AM) [facility] [id number] 16:06:00 Test Item Value Reference Range Interpretation Comments U Angie Scr (test code Negative *NA*(11/04/16 = U Angie Scr) 11:06 AM) [facility] [id number] 16:06:00 Test Item Value Reference Range Interpretation Comments U Benzodia Scr (test Negative *NA*(11/04/16 code = U Benzodia Scr) 11:06 AM) [facility] [id number] 16:06:00 Test Item Value Reference Range Interpretation Comments UDS Note (test code = See Note (11/04/16 11:06 UDS Note) AM) [facility] [id number] 16:06:00 Test Item Value Reference Range Interpretation Comments U Phencyc Scr (test Negative *NA*(11/04/16 code = U Phencyc Scr) 11:06 AM) [facility] [id number] 16:06:00 Test Item Value Reference Range Interpretation Comments U Cannab Scr (test Negative *NA*(11/04/16 code = U Cannab Scr) 11:06 AM) [facility] [id number] 16:06:00 Test Item Value Reference Range Interpretation Comments U Opiate Scr (test Negative *NA*(11/04/16 code = U Opiate Scr) 11:06 AM) [facility] [id number] 16:06:00 Test Item Value Reference Range Interpretation Comments U Amph Scr (test code Negative *NA*(11/04/16 = U Amph Scr) 11:06 AM) [facility] [id number] 16:06:00 Test Item Value Reference Range Interpretation Comments UA RBC (test None Seen See_Comment [Automated mes [place]] code = UA RBC) (11/04/16 11:06 The system w hich AM) generated this result transmitted ref erence range: <=2. The reference range was not used to int erpret this result as normal/abnormal . [facility] [id number] 16:06:00 Test Item Value Reference Range Interpretation Comments UA WBC (test code = UA WBC) 0-2 /HPF [facility] [id number] 16:06:00 Test Item Value Reference Range Interpretation Comments UA Sq Epi (test code = UA Sq Occasional /LPF Epi) [facility] [id number] 16:06:00 Test Item Value Reference Range Interpretation Comments UA Bacteria (test code = UA Occasional /HPF Bacteria) [facility] AND [id number] 16:06:00 Test Item Value Reference Range Interpretation Comments UA Mucus (test code = UA Mucus) Few /LPF [facility] AND [id number] 16:06:00 Test Item Value Reference Range Interpretation Comments Micro? (test code = Performed (11/04/16 11:06 Micro?) AM) [facility] AND [id number] 16:06:00 Test Item Value Reference Range Interpretation Comments UA Nitrite (test code Negative (11/04/16 11:06 = UA Nitrite) AM) [facility] AND [id number] 16:06:00 Test Item Value Reference Range Interpretation Comments UA Leuk Est (test Negative (11/04/16 11:06 code = UA Leuk Est) AM) [facility] AND [id number] 16:06:00 Test Item Value Reference Range Interpretation Comments UA Urobilinogen (test code = UA 4.0 0.1-1.0 Urobilinogen) [facility] AND [id number] 16:06:00 Test Item Value Reference Range Interpretation Comments UA Protein (test code = UA Protein) 30 mg/dL [facility] AND [id number] 16:06:00 Test Item Value Reference Range Interpretation Comments UA Glucose (test code Negative (11/04/16 11:06 = UA Glucose) AM) [facility] AND [id number] 16:06:00 Test Item Value Reference Range Interpretation Comments UA Spec Grav (test code = UA Spec 1.020 1 Grav) [facility] AND [id number] 16:06:00 Test Item Value Reference Range Interpretation Comments UA Color (test code = Yellow *NA*(11/04/16 UA Color) 11:06 AM) [facility] AND [id number] 16:06:00 Test Item Value Reference Range Interpretation Comments UA Turbidity (test code = Clear (11/04/16 11:06 UA Turbidity) AM) [facility] AND [id number] 16:06:00 Test Item Value Reference Range Interpretation Comments UA Bili (test code = Moderate 1*ABN*(11/04/16 UA Bili) 11:06 AM) [facility] [id number] 16:06:00 Test Item Value Reference Range Interpretation Comments UA Ketones (test code = UA Ketones) 40 mg/dL [facility] [id number] 16:06:00 Test Item Value Reference Range Interpretation Comments UA Blood (test code = Negative (11/04/16 11:06 UA Blood) AM) [facility] [id number] 16:06:00 Test Item Value Reference Range Interpretation Comments UA pH (test code = UA pH) 6.0 1 5.0-8.0 [facility] [id number] 16:06:00 Test Item Value Reference Range Interpretation Comments UDS Note (test code = See Note (11/04/16 11:06 UDS Note) AM) [facility] [id number] 16:06:00 Test Item Value Reference Range Interpretation Comments U Phencyc Scr (test Negative *NA*(11/04/16 code = U Phencyc Scr) 11:06 AM) [facility] [id number] 16:06:00 Test Item Value Reference Range Interpretation Comments U Cannab Scr (test Negative *NA*(11/04/16 code = U Cannab Scr) 11:06 AM) [facility] [id number] 16:06:00 Test Item Value Reference Range Interpretation Comments U Opiate Scr (test Negative *NA*(11/04/16 code = U Opiate Scr) 11:06 AM) [facility] [id number] 16:06:00 Test Item Value Reference Range Interpretation Comments U Amph Scr (test code Negative *NA*(11/04/16 = U Amph Scr) 11:06 AM) [facility] [id number] 16:06:00 Test Item Value Reference Range Interpretation Comments UA RBC (test None Seen See_Comment [Automated mes [place]] code = UA RBC) (11/04/16 11:06 The system w hich AM) generated this result transmitted ref erence range: <=2. The reference range was not used to int erpret this result as normal/abnormal . [facility] [id number] 16:06:00 Test Item Value Reference Range Interpretation Comments UA WBC (test code = UA WBC) 0-2 /HPF [facility] [id number] 16:06:00 Test Item Value Reference Range Interpretation Comments UA Sq Epi (test code = UA Sq Occasional /LPF Epi) [facility] [id number] 16:06:00 Test Item Value Reference Range Interpretation Comments UA Bacteria (test code = UA Occasional /HPF Bacteria) [facility] [id number] 16:06:00 Test Item Value Reference Range Interpretation Comments UA Mucus (test code = UA Mucus) Few /LPF [facility] [id number] 16:06:00 Test Item Value Reference Range Interpretation Comments Micro? (test code = Performed (11/04/16 11:06 Micro?) AM) [facility] AND [id number] 16:06:00 Test Item Value Reference Range Interpretation Comments UA Nitrite (test code Negative (11/04/16 11:06 = UA Nitrite) AM) [facility] AND [id number] 16:06:00 Test Item Value Reference Range Interpretation Comments UA Leuk Est (test Negative (11/04/16 11:06 code = UA Leuk Est) AM) [facility] AND [id number] 16:06:00 Test Item Value Reference Range Interpretation Comments UA Urobilinogen (test code = UA 4.0 0.1-1.0 Urobilinogen) [facility] AND [id number] 16:06:00 Test Item Value Reference Range Interpretation Comments UA Protein (test code = UA Protein) 30 mg/dL [facility] AND [id number] 16:06:00 Test Item Value Reference Range Interpretation Comments UA Glucose (test code Negative (11/04/16 11:06 = UA Glucose) AM) [facility] AND [id number] 16:06:00 Test Item Value Reference Range Interpretation Comments UA Spec Grav (test code = UA Spec 1.020 1 Grav) [facility] AND [id number] 16:06:00 Test Item Value Reference Range Interpretation Comments UA Color (test code = Yellow *NA*(11/04/16 UA Color) 11:06 AM) [facility] AND [id number] 16:06:00 Test Item Value Reference Range Interpretation Comments UA Turbidity (test code = Clear (11/04/16 11:06 UA Turbidity) AM) [facility] [id number] 16:06:00 Test Item Value Reference Range Interpretation Comments UA Bili (test code = Moderate 1*ABN*(11/04/16 UA Bili) 11:06 AM) [facility] [id number] 16:06:00 Test Item Value Reference Range Interpretation Comments UA Ketones (test code = UA Ketones) 40 mg/dL [facility] [id number] 16:06:00 Test Item Value Reference Range Interpretation Comments UA Blood (test code = Negative (11/04/16 11:06 UA Blood) AM) [facility] [id number] 16:06:00 Test Item Value Reference Range Interpretation Comments UA pH (test code = UA pH) 6.0 1 5.0-8.0 [facility] [id number] 16:06:00 Test Item Value Reference Range Interpretation Comments U Cocaine Scr (test Positive *ABN*(11/04/16 code = U Cocaine Scr) 11:06 AM) [facility] [id number] 16:06:00 Test Item Value Reference Range Interpretation Comments U Angie Scr (test code Negative *NA*(11/04/16 = U Angie Scr) 11:06 AM) [facility] [id number] 16:06:00 Test Item Value Reference Range Interpretation Comments U Benzodia Scr (test Negative *NA*(11/04/16 code = U Benzodia Scr) 11:06 AM) [facility] [id number] 11:54:00 Test Item Value Reference Range Interpretation Comments Troponin-I (test code 0.03 See_Comment [Auto mated message] The = Troponin-I) system which g enerated this result transmit lani reference range : <=0.40. The reference r tiesha was not used to interpr et this result as derek l/abnormal. [facility] [id number] 11:54:00 Test Item Value Reference Range Interpretation Comments CK MB Index (test 0.7 See_Comment [Automate d message] The code = CK MB Index) system w [facility] generated this result transmit lani reference range : <=2.5. The reference range was not used to interpr et this result as derek l/abnormal. [facility]2017-05-04 11:54:00 Test Item Value Reference Range Interpretation Comments CK MB (test code = CK MB) 10.6 0.5-3.6 [id number] 11:54:00 Test Item Value Reference Range Interpretation Comments Basophils # (test code 0.1 See_Comment [Aut omated message] The = Basophils #) system which generated this result tra nsmitted reference range : <=0.2. The reference r tiesha was not used to int erpret this result as normal/abnormal . [facility] Centenni[id number] 11:54:00 Test Item Value Reference Range Interpretation Comments Monocytes # (test code 0.7 See_Comment [Aut omated message] The = Monocytes #) system which generated this result tra nsmitted reference range : <=0.8. The reference r tiesha was not used to int erpret this result as normal/abnormal . [facility] Centenni[id number] 11:54:00 Test Item Value Reference Range Interpretation Comments Eosinophils # (test code 0.3 See_Comment [A utomated message] The = Eosinophils #) system whic h generated this result tra nsmitted reference range : <=0.5. The reference r tiesha was not used to int erpret this result as normal/abnormal . [facility] Centenni[id number] 11:54:00 Test Item Value Reference Range Interpretation Comments Eosinophils (test code = 3.3 See_Comment [A utomated message] The Eosinophils) system which ge nerated this result tra nsmitted reference range : <=4.0. The reference r tiesha was not used to int erpret this result as normal/abnormal . [facility] CentennialBiijgkhVPKULZGGEV7912-66-29 11:54:00 Test Item Value Reference Range Interpretation Comments Basophils (test code = 0.6 See_Comment [Aut omated message] The Basophils) system which ge nerated this result tra nsmitted reference range : <=1.0. The reference r tiesha was not used to int erpret this result as normal/abnormal . [facility] CentennialZgowhdsPJEXDUGHUG3941-19-68 11:54:00 Test Item Value Reference Range Interpretation Comments Monocytes (test code = Monocytes) 8.3 2.0-12.0 [facility] Centenni[id number] 11:54:00 Test Item Value Reference Range Interpretation Comments Segs-Bands # (test code = Segs-Bands #) 5.6 1.5-8.1 [facility] CentennialKvoblijJZBCKIOSXM4413-39-24 11:54:00 Test Item Value Reference Range Interpretation Comments Lymphocytes # (test code = Lymphocytes 2.2 1.0-5.5 #) [facility] CentennialOtjabkgYFHNUBDMUK4280-65-68 11:54:00 Test Item Value Reference Range Interpretation Comments Lymphocytes (test code = Lymphocytes) 24.8 20.0-40.0 [facility] CentennialGheanygXYAVKQRMLH0038-02-78 11:54:00 Test Item Value Reference Range Interpretation Comments Segs (test code = Segs) 63.0 45.0-75.0 [facility] CentennialLtffpfbRYMFNRKWZL6051-07-29 11:54:00 Test Item Value Reference Range Interpretation Comments Hct (test code = Hct) 38.9 42.0-54.0 [facility] CentennialNmvnefhGTVGDGFSFM1175-42-20 11:54:00 Test Item Value Reference Range Interpretation Comments MCV (test code = MCV) 88.8 80.0-94.0 [facility] CentennialDqeddwwNSVFHDGVKA3453-57-07 11:54:00 Test Item Value Reference Range Interpretation Comments RBC (test code = RBC) 4.38 4.70-6.10 [facility] CentennialWhjzqzbHYMTKSVIGV2921-05-59 11:54:00 Test Item Value Reference Range Interpretation Comments Hgb (test code = Hgb) 13.2 14.0-18.0 [facility] CentennialCvkcnihUINWTXKBXJ6911-87-62 11:54:00 Test Item Value Reference Range Interpretation Comments WBC (test code = WBC) 8.9 3.7-10.4 [facility] CentennialVsuzkknUZJHIPTMTY3039-18-60 11:54:00 Test Item Value Reference Range Interpretation Comments Platelet (test code = Platelet) 179 133-450 [facility] CentennialXjawjenWBINTACKRW7853-89-56 11:54:00 Test Item Value Reference Range Interpretation Comments MPV (test code = MPV) 9.5 7.4-10.4 [facility] CentennialYyzlhsgOQWTTORSDJ2230-60-07 11:54:00 Test Item Value Reference Range Interpretation Comments MCHC (test code = MCHC) 34.0 32.0-36.0 [facility] CentennialQivibjgMWFPAFEHZK2279-83-88 11:54:00 Test Item Value Reference Range Interpretation Comments RDW (test code = RDW) 14.0 11.5-14.5 [facility] CentennialDdwevrjLVEIRMIWLU6801-67-29 11:54:00 Test Item Value Reference Range Interpretation Comments MCH (test code = MCH) 30.2 pg 27.0-31.0 [facility] [id number] 11:54:00 Test Item Value Reference Range Interpretation Comments Troponin-I (test code 0.03 See_Comment [Auto mated message] The = Troponin-I) system which g enerated this result transmit lani reference range : <=0.40. The reference r tiesha was not used to interpr et this result as derek l/abnormal. [facility] [id number] 11:54:00 Test Item Value Reference Range Interpretation Comments CK MB Index (test 0.7 See_Comment [Automate d message] The code = CK MB Index) system w [facility] generated this result transmit lani reference range : <=2.5. The reference range was not used to interpr et this result as derek l/abnormal. [facility] [id number] 11:54:00 Test Item Value Reference Range Interpretation Comments CK MB (test code = CK MB) 10.6 0.5-3.6 [facility] CentennialTfdsxarQMBUVTNOVP8014-98-75 11:54:00 Test Item Value Reference Range Interpretation Comments Basophils # (test code 0.1 See_Comment [Aut omated message] The = Basophils #) system which generated this result tra nsmitted reference range : <=0.2. The reference r tiesha was not used to int erpret this result as normal/abnormal . [facility] CentennialKscbldePRYJVOSXXR5142-36-70 11:54:00 Test Item Value Reference Range Interpretation Comments Monocytes # (test code 0.7 See_Comment [Aut omated message] The = Monocytes #) system which generated this result tra nsmitted reference range : <=0.8. The reference r tiesha was not used to int erpret this result as normal/abnormal . [facility] CentennialCaphlmiXDNYXWPPUF2406-68-79 11:54:00 Test Item Value Reference Range Interpretation Comments Eosinophils # (test code 0.3 See_Comment [A utomated message] The = Eosinophils #) system whic h generated this result tra nsmitted reference range : <=0.5. The reference r tiesha was not used to int erpret this result as normal/abnormal . [facility] CentennialRachdlvEPRFAULMJW4816-40-46 11:54:00 Test Item Value Reference Range Interpretation Comments Eosinophils (test code = 3.3 See_Comment [A utomated message] The Eosinophils) system which ge nerated this result tra nsmitted reference range : <=4.0. The reference r tiesha was not used to int erpret this result as normal/abnormal . [facility] CentennialUjjwwgjEEOLYSUNKR1249-95-12 11:54:00 Test Item Value Reference Range Interpretation Comments Basophils (test code = 0.6 See_Comment [Aut omated message] The Basophils) system which ge nerated this result tra nsmitted reference range : <=1.0. The reference r tiesha was not used to int erpret this result as normal/abnormal . [facility] CentennialWootyrhJUXDOATARD9673-26-00 11:54:00 Test Item Value Reference Range Interpretation Comments Monocytes (test code = Monocytes) 8.3 2.0-12.0 [facility] CentennialMvpgofgYIILTLYEDH2867-14-63 11:54:00 Test Item Value Reference Range Interpretation Comments Segs-Bands # (test code = Segs-Bands #) 5.6 1.5-8.1 [facility] CentennialIragkfbZGRXCAKYCT3512-18-33 11:54:00 Test Item Value Reference Range Interpretation Comments Lymphocytes # (test code = Lymphocytes 2.2 1.0-5.5 #) [facility] CentennialQvibzuuRLCSGVWDWA1340-63-87 11:54:00 Test Item Value Reference Range Interpretation Comments Lymphocytes (test code = Lymphocytes) 24.8 20.0-40.0 [facility] CentennialBugdelkZRSNJFKIKS4548-35-55 11:54:00 Test Item Value Reference Range Interpretation Comments Segs (test code = Segs) 63.0 45.0-75.0 [facility] CentennialJpbxzlpBWMFPPIHUP7267-59-34 11:54:00 Test Item Value Reference Range Interpretation Comments Hct (test code = Hct) 38.9 42.0-54.0 [facility] CentennialRyhcdxkSSFNRLSROS8946-77-55 11:54:00 Test Item Value Reference Range Interpretation Comments MCV (test code = MCV) 88.8 80.0-94.0 [place] 331247-05-04 11:54:00 Test Item Value Reference Range Interpretation Comments RBC (test code = RBC) 4.38 4.70-6.10 [facility] RegionFwwwrwiFDSFPFIHJC0076-41-67 11:54:00 Test Item Value Reference Range Interpretation Comments Hgb (test code = Hgb) 13.2 14.0-18.0 [facility] RegionJtdvbbaDIWJSBYTDS7933-44-74 11:54:00 Test Item Value Reference Range Interpretation Comments WBC (test code = WBC) 8.9 3.7-10.4 [facility] RegionDyqaexsIIBVYHEUFB1747-23-83 11:54:00 Test Item Value Reference Range Interpretation Comments Platelet (test code = Platelet) 179 133-450 [facility] RegionXwxecufMJECYSEPHZ8879-44-70 11:54:00 Test Item Value Reference Range Interpretation Comments MPV (test code = MPV) 9.5 7.4-10.4 [facility] RegionGwgsxlgQNSTDPQSDX4172-84-75 11:54:00 Test Item Value Reference Range Interpretation Comments MCHC (test code = MCHC) 34.0 32.0-36.0 [facility] RegionYecholdCUKSJEJUBU6812-97-69 11:54:00 Test Item Value Reference Range Interpretation Comments RDW (test code = RDW) 14.0 11.5-14.5 [facility] RegionKripimwMPRPOYJHIV9017-19-66 11:54:00 Test Item Value Reference Range Interpretation Comments MCH (test code = MCH) 30.2 pg 27.0-31.0 [facility] CenterZubican TKXGRZS3503-02-66 11:54:00 Test Item Value Reference Range Interpretation Comments Troponin-I (test code 0.03 See_Comment [Auto mated message] The = Troponin-I) system which g enerated this result transmit lani reference range : <=0.40. The reference r tiesha was not used to interpr et this result as derek l/abnormal. [facility] CenterClearCyclePEFBRYM7175-05-21 11:54:00 Test Item Value Reference Range Interpretation Comments CK MB Index (test 0.7 See_Comment [Automate d message] The code = CK MB Index) system w [facility] generated this result transmit lani reference range : <=2.5. The reference range was not used to interpr et this result as derek l/abnormal. [facility]2017-05-04 11:54:00 Test Item Value Reference Range Interpretation Comments CK MB (test code = CK MB) 10.6 0.5-3.6 [facility] CentennialCutfdjxNIXEPLCYYK0797-90-68 11:54:00 Test Item Value Reference Range Interpretation Comments Basophils # (test code 0.1 See_Comment [Aut omated message] The = Basophils #) system which generated this result tra nsmitted reference range : <=0.2. The reference r tiesha was not used to int erpret this result as normal/abnormal . [facility] CentennialIbcplqgATYJRZNJHK3170-16-81 11:54:00 Test Item Value Reference Range Interpretation Comments Monocytes # (test code 0.7 See_Comment [Aut omated message] The = Monocytes #) system which generated this result tra nsmitted reference range : <=0.8. The reference r tiesha was not used to int erpret this result as normal/abnormal . [facility] CentennialSlejrcvAATXXFXELS7288-10-31 11:54:00 Test Item Value Reference Range Interpretation Comments Eosinophils # (test code 0.3 See_Comment [A utomated message] The = Eosinophils #) system wh h generated this result tra nsmitted reference range : <=0.5. The reference r tiesha was not used to int erpret this result as normal/abnormal . [facility] CentennialMvmmovkXKYBSKTJBN3208-65-59 11:54:00 Test Item Value Reference Range Interpretation Comments Eosinophils (test code = 3.3 See_Comment [A utomated message] The Eosinophils) system which ge nerated this result tra nsmitted reference range : <=4.0. The reference r tiesha was not used to int erpret this result as normal/abnormal . [facility]ennialNaebsvqVTOBBDXXVG9536-78-67 11:54:00 Test Item Value Reference Range Interpretation Comments Basophils (test code = 0.6 See_Comment [Aut omated message] The Basophils) system which ge nerated this result tra nsmitted reference range : <=1.0. The reference r tiesha was not used to int erpret this result as normal/abnormal . [facility]ennialErlgqqlWWGGUUUTOV6865-04-20 11:54:00 Test Item Value Reference Range Interpretation Comments Monocytes (test code = Monocytes) 8.3 2.0-12.0 [facility]ennialJwblhqnMJSKBMXDUK5040-31-40 11:54:00 Test Item Value Reference Range Interpretation Comments Segs-Bands # (test code = Segs-Bands #) 5.6 1.5-8.1 [facility] CentennialWlattgvNQJGKXELYK0364-24-49 11:54:00 Test Item Value Reference Range Interpretation Comments Lymphocytes # (test code = Lymphocytes 2.2 1.0-5.5 #) [facility] CentennialWmmidekASOXFLELME6841-85-74 11:54:00 Test Item Value Reference Range Interpretation Comments Lymphocytes (test code = Lymphocytes) 24.8 20.0-40.0 [facility] CentennialPaqsugqGKQXWKOCCE2524-61-27 11:54:00 Test Item Value Reference Range Interpretation Comments Segs (test code = Segs) 63.0 45.0-75.0 [facility] CentennialZwhjaxtSWNOUOTJHR3345-20-21 11:54:00 Test Item Value Reference Range Interpretation Comments Hct (test code = Hct) 38.9 42.0-54.0 [facility] CentennialAlvqmduUBDZNVTHDL1193-64-38 11:54:00 Test Item Value Reference Range Interpretation Comments MCV (test code = MCV) 88.8 80.0-94.0 [facility] CentennialSbysooeZSLQJIRCJK6390-99-02 11:54:00 Test Item Value Reference Range Interpretation Comments RBC (test code = RBC) 4.38 4.70-6.10 [facility] CentennialAvzcawlEXXPBZIQCZ5529-78-49 11:54:00 Test Item Value Reference Range Interpretation Comments Hgb (test code = Hgb) 13.2 14.0-18.0 [facility] CentennialWbamfzkFKYPSRADJD1662-91-27 11:54:00 Test Item Value Reference Range Interpretation Comments WBC (test code = WBC) 8.9 3.7-10.4 [facility] CentennialYvmlvesNCRSZXMUKX4179-30-62 11:54:00 Test Item Value Reference Range Interpretation Comments Platelet (test code = Platelet) 179 133-450 [facility] CentennialUbkzsjrURCAGLEVWR9823-83-01 11:54:00 Test Item Value Reference Range Interpretation Comments MPV (test code = MPV) 9.5 7.4-10.4 [facility]ennialOrlwyyoNWWGFOOIQZ3208-02-06 11:54:00 Test Item Value Reference Range Interpretation Comments MCHC (test code = MCHC) 34.0 32.0-36.0 [facility] CentennialMbmuxssDLQWVQNBKQ5066-21-62 11:54:00 Test Item Value Reference Range Interpretation Comments RDW (test code = RDW) 14.0 11.5-14.5 [facility] HospitalTvxeljfDAULYLGRCS3294-76-08 11:54:00 Test Item Value Reference Range Interpretation Comments MCH (test code = MCH) 30.2 pg 27.0-31.0 [facility] [id number] 11:54:00 Test Item Value Reference Range Interpretation Comments Troponin-I (test code 0.03 See_Comment [Auto mated message] The = Troponin-I) system which g enerated this result transmit lani reference range : <=0.40. The reference r tiesha was not used to interpr et this result as derek l/abnormal. [facility] OYVCOGZ3566-23-79 11:54:00 Test Item Value Reference Range Interpretation Comments CK MB Index (test 0.7 See_Comment [Automate d message] The code = CK MB Index) system w hich generated this result transmit lani reference range : <=2.5. The reference range was not used to interpr et this result as derek l/abnormal. [facility] GYYXJRK2143-61-76 11:54:00 Test Item Value Reference Range Interpretation Comments CK MB (test code = CK MB) 10.6 0.5-3.6 [facility] HospitalErjfuwyMRZDJNNNKG0516-62-55 11:54:00 Test Item Value Reference Range Interpretation Comments Basophils # (test code 0.1 See_Comment [Aut omated message] The = Basophils #) system which generated this result tra nsmitted reference range : <=0.2. The reference r tiesha was not used to int erpret this result as normal/abnormal . [facility] CenterFbgudeoIURNAJFALQ3924-77-85 11:54:00 Test Item Value Reference Range Interpretation Comments Monocytes # (test code 0.7 See_Comment [Aut omated message] The = Monocytes #) system which generated this result tra nsmitted reference range : <=0.8. The reference r tiesha was not used to int erpret this result as normal/abnormal . [facility] CenterShagkfpKFXJBYZOVL2671-86-28 11:54:00 Test Item Value Reference Range Interpretation Comments Eosinophils # (test code 0.3 See_Comment [A utomated message] The = Eosinophils #) system whic h generated this result tra nsmitted reference range : <=0.5. The reference r tiesha was not used to int erpret this result as normal/abnormal . [facility]ennialNesoabmQQVQFVVTUU2208-87-01 11:54:00 Test Item Value Reference Range Interpretation Comments Eosinophils (test code = 3.3 See_Comment [A utomated message] The Eosinophils) system which ge nerated this result tra nsmitted reference range : <=4.0. The reference r tiesha was not used to int erpret this result as normal/abnormal . [facility] CentennialJxvtjayUWNOKCJHGQ4951-50-95 11:54:00 Test Item Value Reference Range Interpretation Comments Basophils (test code = 0.6 See_Comment [Aut omated message] The Basophils) system which ge nerated this result tra nsmitted reference range : <=1.0. The reference r tiesha was not used to int erpret this result as normal/abnormal . [facility] CentennialNgregldNYEKNSOHHX5568-27-02 11:54:00 Test Item Value Reference Range Interpretation Comments Monocytes (test code = Monocytes) 8.3 2.0-12.0 [facility] CentennialLesdoniYMIBHXHIIO6427-55-54 11:54:00 Test Item Value Reference Range Interpretation Comments Segs-Bands # (test code = Segs-Bands #) 5.6 1.5-8.1 [facility]ennialOvlsxgoNIEGGOZSGT4935-75-26 11:54:00 Test Item Value Reference Range Interpretation Comments Lymphocytes # (test code = Lymphocytes 2.2 1.0-5.5 #) [facility] CentennialVupimlxBGXAGWCRDV6095-92-62 11:54:00 Test Item Value Reference Range Interpretation Comments Lymphocytes (test code = Lymphocytes) 24.8 20.0-40.0 [facility] CentennialHgnmuxnMXQHDWBXMA5651-92-30 11:54:00 Test Item Value Reference Range Interpretation Comments Segs (test code = Segs) 63.0 45.0-75.0 [facility] CentennialIkxyanaUCIKDBSHQN8690-94-72 11:54:00 Test Item Value Reference Range Interpretation Comments Hct (test code = Hct) 38.9 42.0-54.0 [facility] CentennialHtjkvvnVQSBRYPJWU6569-01-72 11:54:00 Test Item Value Reference Range Interpretation Comments MCV (test code = MCV) 88.8 80.0-94.0 [facility] CentennialMleixoaQUPWOYPIDT4484-19-76 11:54:00 Test Item Value Reference Range Interpretation Comments RBC (test code = RBC) 4.38 4.70-6.10 [facility] CentennialJsiospbJACUNJKGCU3780-89-93 11:54:00 Test Item Value Reference Range Interpretation Comments Hgb (test code = Hgb) 13.2 14.0-18.0 [facility] CentennialXerlbdfSSSCDVUPUY4032-72-54 11:54:00 Test Item Value Reference Range Interpretation Comments WBC (test code = WBC) 8.9 3.7-10.4 [facility] CentennialIsdmcltPBVBULQCHL7328-17-45 11:54:00 Test Item Value Reference Range Interpretation Comments Platelet (test code = Platelet) 179 133-450 [facility] CentennialUfdmfcfYDCDNZQPEK6729-46-51 11:54:00 Test Item Value Reference Range Interpretation Comments MPV (test code = MPV) 9.5 7.4-10.4 [facility] CentennialYaaaayeVCTHARPPKU1611-20-99 11:54:00 Test Item Value Reference Range Interpretation Comments MCHC (test code = MCHC) 34.0 32.0-36.0 [facility] CentennialGagrftnJEOWFIYHWQ0739-01-16 11:54:00 Test Item Value Reference Range Interpretation Comments RDW (test code = RDW) 14.0 11.5-14.5 [facility] CentennialIrbfqrkYHWAZARQCR7923-60-43 11:54:00 Test Item Value Reference Range Interpretation Comments MCH (test code = MCH) 30.2 pg 27.0-31.0 [place] [id number] 04:50:00 Test Item Value Reference Range Interpretation Comments Acetaminoph Lvl (test code = no gt 10-20 Acetaminoph Lvl) [place] [id number] 04:50:00 Test Item Value Reference Range Interpretation Comments Ethanol Lvl (test code = Ethanol Lvl) no gt [place] [id number] 04:50:00 Test Item Value Reference Range Interpretation Comments Etoh (%) (test code = Etoh (%)) no gt [place] [id number] 04:50:00 Test Item Value Reference Range Interpretation Comments Salicylate Lvl (test no gt See_Comment [Autom ated message] The code = Salicylate Lvl) syste m which generated this result tra nsmitted reference range : <=30.0. The reference r tiesha was not used to int erpret this result as normal/abnormal . [facility] NshuohdXVNVYJRJYL8424-24-10 04:50:00 Test Item Value Reference Range Interpretation Comments Acetaminoph Lvl (test code = no gt 10-20 Acetaminoph Lvl) [facility] LplgzigJYMTOCFASV5478-94-79 04:50:00 Test Item Value Reference Range Interpretation Comments Ethanol Lvl (test code = Ethanol Lvl) no [facility] LonlyinOBYHBFJILL7006-06-09 04:50:00 Test Item Value Reference Range Interpretation Comments Etoh (%) (test code = Etoh (%)) no [facility] ZticeopZJEGNHANCC5635-65-97 04:50:00 Test Item Value Reference Range Interpretation Comments Salicylate Lvl (test no gt See_Comment [Autom ated message] The code = Salicylate Lvl) syste m which generated this result tra nsmitted reference range : <=30.0. The reference r tiesha was not used to int erpret this result as normal/abnormal . [facility] BcckfsvSAZCXWOEJI3913-86-59 04:50:00 Test Item Value Reference Range Interpretation Comments Acetaminoph Lvl (test code = no gt 10-20 Acetaminoph Lvl) [facility] HospitalSbakwngYUNVZMHITM7419-84-08 04:50:00 Test Item Value Reference Range Interpretation Comments Ethanol Lvl (test code = Ethanol Lvl) no [facility] LlhirwwHCUGRGWGDD6644-64-93 04:50:00 Test Item Value Reference Range Interpretation Comments Etoh (%) (test code = Etoh (%)) no [facility] ZbdvzaoRNFUCWMLOO7993-89-95 04:50:00 Test Item Value Reference Range Interpretation Comments Salicylate Lvl (test no gt See_Comment [Autom ated message] The code = Salicylate Lvl) syste m which generated this result tra nsmitted reference range : <=30.0. The reference r tiesha was not used to int erpret this result as normal/abnormal . [facility] BvkxdhpVTTYFCZRBL2341-27-29 04:50:00 Test Item Value Reference Range Interpretation Comments Acetaminoph Lvl (test code = no gt 10-20 Acetaminoph Lvl) [facility] HospitalUlmcxmaYWNCVMBRFL1923-22-85 04:50:00 Test Item Value Reference Range Interpretation Comments Ethanol Lvl (test code = Ethanol Lvl) no gt [facility] HospitalNslnfotKHZVEJDGHA1147-36-21 04:50:00 Test Item Value Reference Range Interpretation Comments Etoh (%) (test code = Etoh (%)) no gt [facility] HospitalWrkxmysFFHKDHOEBU1758-89-44 04:50:00 Test Item Value Reference Range Interpretation Comments Salicylate Lvl (test no gt See_Comment [Autom ated message] The code = Salicylate Lvl) syste m which generated this result tra nsmitted reference range : <=30.0. The reference r tiesha was not used to int erpret this result as normal/abnormal . [facility] Dafiti2017-05-04 02:50:00 Test Item Value Reference Range Interpretation Comments CK MB Index (test 0.6 See_Comment [Automate d message] The code = CK MB Index) system w hich generated this result transmit lani reference range : <=2.5. The reference range was not used to interpr et this result as derek l/abnormal. [facility] Dafiti2017-05-04 02:50:00 Test Item Value Reference Range Interpretation Comments Troponin-I (test code 0.03 See_Comment [Auto mated message] The = Troponin-I) system which g enerated this result transmit lani reference range : <=0.40. The reference r tiesha was not used to interpr et this result as derek l/abnormal. [facility] Dafiti2017-05-04 02:50:00 Test Item Value Reference Range Interpretation Comments CK MB (test code = CK MB) 20.8 0.5-3.6 [facility] [employer]2017-05-04 02:50:00 Test Item Value Reference Range Interpretation Comments Magnesium Lvl (test code = Magnesium 2.4 1.8-2.4 Lvl) [facility] [employer]2017-05-04 02:50:00 Test Item Value Reference Range Interpretation Comments Lipase Lvl (test code = Lipase Lvl) 87 73-393 [facility] [employer]2017-05-04 02:50:00 Test Item Value Reference Range Interpretation Comments B/C Ratio (test code = B/C Ratio) 24 6-25 [facility]2017-05-04 02:50:00 Test Item Value Reference Range Interpretation Comments Total Protein (test code = Total 7.4 6.4-8.4 Protein) [facility]2017-05-04 02:50:00 Test Item Value Reference Range Interpretation Comments Bili Total (test code = Bili Total) 1.5 0.2-1.3 [facility]2017-05-04 02:50:00 Test Item Value Reference Range Interpretation Comments Alk Phos (test code = Alk Phos) 65 39-136 [facility]2017-05-04 02:50:00 Test Item Value Reference Range Interpretation Comments Globulin (test code = Globulin) 3.4 2.7-4.2 [facility]2017-05-04 02:50:00 Test Item Value Reference Range Interpretation Comments A/G Ratio (test code = A/G Ratio) 1.2 0.7-1.6 [facility]2017-05-04 02:50:00 Test Item Value Reference Range Interpretation Comments ALT (test code = ALT) 136 See_Comment [Auto mated message] The system which ge nerated this result transmit lani reference range : <=65. The reference range was not used to interpr et this result as derek l/abnormal. [facility]2017-05-04 02:50:00 Test Item Value Reference Range Interpretation Comments Albumin Lvl (test code = Albumin Lvl) 4.0 3.5-5.0 [facility]2017-05-04 02:50:00 Test Item Value Reference Range Interpretation Comments AST (test code = AST) 188 See_Comment [Auto mated message] The system which ge nerated this result transmit lani reference range : <=37. The reference range was not used to interpr et this result as derek l/abnormal. [facility]ennialTmamlwcHGPLMKMFCM9322-37-17 02:50:00 Test Item Value Reference Range Interpretation Comments Eosinophils (test code = 2.1 See_Comment [A utomated message] The Eosinophils) system which ge nerated this result tra nsmitted reference range : <=4.0. The reference r tiesha was not used to int erpret this result as normal/abnormal . [facility]ennialOqnidtiEPNXCQCTNL9039-37-88 02:50:00 Test Item Value Reference Range Interpretation Comments Segs-Bands # (test code = Segs-Bands #) 7.8 1.5-8.1 [facility] CentennialUzlpoozXUCGRYJGWQ3114-42-71 02:50:00 Test Item Value Reference Range Interpretation Comments Basophils (test code = 0.7 See_Comment [Aut omated message] The Basophils) system which ge nerated this result tra nsmitted reference range : <=1.0. The reference r tiesha was not used to int erpret this result as normal/abnormal . [facility] CentennialTlrqcoxTUWLCTVNAL3375-81-67 02:50:00 Test Item Value Reference Range Interpretation Comments Monocytes (test code = Monocytes) 8.5 2.0-12.0 [facility] CentennialLfyclmmYYREPVKRNA0850-60-63 02:50:00 Test Item Value Reference Range Interpretation Comments Monocytes # (test code 1.0 See_Comment [Aut omated message] The = Monocytes #) system which generated this result tra nsmitted reference range : <=0.8. The reference r tiesha was not used to int erpret this result as normal/abnormal . [facility] CentennialBfllgxsIYRCDCPDWA0099-97-35 02:50:00 Test Item Value Reference Range Interpretation Comments Eosinophils # (test code 0.3 See_Comment [A utomated message] The = Eosinophils #) system whic h generated this result tra nsmitted reference range : <=0.5. The reference r tiesha was not used to int erpret this result as normal/abnormal . [facility] CentennialVhdqjgpYKNVWWJYJT1181-70-58 02:50:00 Test Item Value Reference Range Interpretation Comments Lymphocytes # (test code = Lymphocytes 2.9 1.0-5.5 #) [facility] CentennialLkwsgfcDZQMLZHWYZ0226-61-22 02:50:00 Test Item Value Reference Range Interpretation Comments Lymphocytes (test code = Lymphocytes) 24.1 20.0-40.0 [facility] CentennialRlekldnZLHCUAQRLA5292-39-75 02:50:00 Test Item Value Reference Range Interpretation Comments Segs (test code = Segs) 64.6 45.0-75.0 [facility] CentennialKhyptjfIPQQHAQUBL3590-91-38 02:50:00 Test Item Value Reference Range Interpretation Comments Basophils # (test code 0.1 See_Comment [Aut omated message] The = Basophils #) system which generated this result tra nsmitted reference range : <=0.2. The reference r tiesha was not used to int erpret this result as normal/abnormal . [facility]ennialHrforpjZUEDIEOUDC1714-45-02 02:50:00 Test Item Value Reference Range Interpretation Comments MCV (test code = MCV) 88.9 80.0-94.0 [facility] CentennialAdilnpxZWGMABOUDR2071-59-04 02:50:00 Test Item Value Reference Range Interpretation Comments RDW (test code = RDW) 13.7 11.5-14.5 [facility] CentennialQvwgtdbTUTTRENSTU0996-17-00 02:50:00 Test Item Value Reference Range Interpretation Comments MCHC (test code = MCHC) 33.6 32.0-36.0 [facility] CentennialZdesqnfLNEDLSZMTL7625-28-38 02:50:00 Test Item Value Reference Range Interpretation Comments MCH (test code = MCH) 29.8 pg 27.0-31.0 [facility]ennialOsywwksJXGTIYIZQB3061-82-03 02:50:00 Test Item Value Reference Range Interpretation Comments Platelet (test code = Platelet) 203 133-450 [facility] CentennialRqrlbomRFNLQPTBFZ2441-20-46 02:50:00 Test Item Value Reference Range Interpretation Comments MPV (test code = MPV) 9.5 7.4-10.4 [facility] CentennialInevfbrJLWNNVPYMF7473-72-38 02:50:00 Test Item Value Reference Range Interpretation Comments RBC (test code = RBC) 4.98 4.70-6.10 [facility] CentennialDmgnjfoJXYBBGKYXC7178-86-28 02:50:00 Test Item Value Reference Range Interpretation Comments WBC (test code = WBC) 12.0 3.7-10.4 [facility] CentennialObtrrzkSQMPNOLNJL3483-39-10 02:50:00 Test Item Value Reference Range Interpretation Comments Hct (test code = Hct) 44.3 42.0-54.0 [facility] CentennialIyzjeggINIBUXPBSN5249-91-85 02:50:00 Test Item Value Reference Range Interpretation Comments Hgb (test code = Hgb) 14.9 14.0-18.0 [facility] CenterCARDIAC WORVDEB8798-18-30 02:50:00 Test Item Value Reference Range Interpretation Comments CK MB Index (test 0.6 See_Comment [Automate d message] The code = CK MB Index) system w [facility] generated this result transmit lani reference range : <=2.5. The reference range was not used to interpr et this result as derek l/abnormal. [facility] HospitalArk HKNGLSQ6131-78-36 02:50:00 Test Item Value Reference Range Interpretation Comments Troponin-I (test code 0.03 See_Comment [Auto mated message] The = Troponin-I) system which g enerated this result transmit lani reference range : <=0.40. The reference r tiesha was not used to interpr et this result as derek l/abnormal. [facility] HospitalArk RPSWJVH6897-29-84 02:50:00 Test Item Value Reference Range Interpretation Comments CK MB (test code = CK MB) 20.8 0.5-3.6 [facility] [employer] KFMLP4303-59-45 02:50:00 Test Item Value Reference Range Interpretation Comments Magnesium Lvl (test code = Magnesium 2.4 1.8-2.4 Lvl) [facility] HospitalMedPageToday FDZWT6987-74-86 02:50:00 Test Item Value Reference Range Interpretation Comments Lipase Lvl (test code = Lipase Lvl) 87 73-393 [facility] [employer] AWMOV4709-53-56 02:50:00 Test Item Value Reference Range Interpretation Comments B/C Ratio (test code = B/C Ratio) 24 6-25 [facility] [employer] RZEJM8973-01-14 02:50:00 Test Item Value Reference Range Interpretation Comments Total Protein (test code = Total 7.4 6.4-8.4 Protein) [facility] HospitalMedPageToday SIQXM6637-71-73 02:50:00 Test Item Value Reference Range Interpretation Comments Bili Total (test code = Bili Total) 1.5 0.2-1.3 [facility] [employer] SFWVG1562-51-44 02:50:00 Test Item Value Reference Range Interpretation Comments Alk Phos (test code = Alk Phos) 65 39-136 [facility] [employer] KSLPZ9099-70-36 02:50:00 Test Item Value Reference Range Interpretation Comments Globulin (test code = Globulin) 3.4 2.7-4.2 [facility] [employer] LZETD2426-03-02 02:50:00 Test Item Value Reference Range Interpretation Comments A/G Ratio (test code = A/G Ratio) 1.2 0.7-1.6 [facility] HospitalMedPageToday [id number] 02:50:00 Test Item Value Reference Range Interpretation Comments ALT (test code = ALT) 136 See_Comment [Auto mated message] The system which ge nerated this result transmit lani reference range : <=65. The reference range was not used to interpr et this result as derek l/abnormal. [facility]2017-05-04 02:50:00 Test Item Value Reference Range Interpretation Comments Albumin Lvl (test code = Albumin Lvl) 4.0 3.5-5.0 [facility]2017-05-04 02:50:00 Test Item Value Reference Range Interpretation Comments AST (test code = AST) 188 See_Comment [Auto mated message] The system which ge nerated this result transmit lani reference range : <=37. The reference range was not used to interpr et this result as derek l/abnormal. [facility]ennialNspkqgcRGVYPGJXEF1121-90-89 02:50:00 Test Item Value Reference Range Interpretation Comments Eosinophils (test code = 2.1 See_Comment [A utomated message] The Eosinophils) system which ge nerated this result tra nsmitted reference range : <=4.0. The reference r tiesha was not used to int erpret this result as normal/abnormal . [facility] CentennialKqjukigFQTTTFPBVH2719-91-70 02:50:00 Test Item Value Reference Range Interpretation Comments Segs-Bands # (test code = Segs-Bands #) 7.8 1.5-8.1 [facility] CentennialLmzmxbdWTOEYRNOVE8875-50-14 02:50:00 Test Item Value Reference Range Interpretation Comments Basophils (test code = 0.7 See_Comment [Aut omated message] The Basophils) system which ge nerated this result tra nsmitted reference range : <=1.0. The reference r tiesha was not used to int erpret this result as normal/abnormal . [facility]ennialXjhflzfWHEEUVOJLS4585-46-72 02:50:00 Test Item Value Reference Range Interpretation Comments Monocytes (test code = Monocytes) 8.5 2.0-12.0 [facility]ennialJilethvGJHLDYZEBN3833-27-58 02:50:00 Test Item Value Reference Range Interpretation Comments Monocytes # (test code 1.0 See_Comment [Aut omated message] The = Monocytes #) system which generated this result tra nsmitted reference range : <=0.8. The reference r tiesha was not used to int erpret this result as normal/abnormal . [facility]ennialTowxvfwPVULDUUYYY0015-93-40 02:50:00 Test Item Value Reference Range Interpretation Comments Eosinophils # (test code 0.3 See_Comment [A utomated message] The = Eosinophils #) system whic h generated this result tra nsmitted reference range : <=0.5. The reference r tiesha was not used to int erpret this result as normal/abnormal . [facility] CentennialVabsxgfQKDBZNUSLX8344-29-49 02:50:00 Test Item Value Reference Range Interpretation Comments Lymphocytes # (test code = Lymphocytes 2.9 1.0-5.5 #) [facility] CentennialPlicbutJJQQULWIMT2198-23-97 02:50:00 Test Item Value Reference Range Interpretation Comments Lymphocytes (test code = Lymphocytes) 24.1 20.0-40.0 [facility] CentennialYprvoenMXBKPLJFZE0287-28-11 02:50:00 Test Item Value Reference Range Interpretation Comments Segs (test code = Segs) 64.6 45.0-75.0 [facility]ennialCatcqqaSPFAXBIPHG1905-27-01 02:50:00 Test Item Value Reference Range Interpretation Comments Basophils # (test code 0.1 See_Comment [Aut omated message] The = Basophils #) system which generated this result tra nsmitted reference range : <=0.2. The reference r tiesha was not used to int erpret this result as normal/abnormal . [facility] CentennialBihrvnbFQYQSAXPEP7030-46-97 02:50:00 Test Item Value Reference Range Interpretation Comments MCV (test code = MCV) 88.9 80.0-94.0 [facility] CentennialBhktjcfDULRTJHTHC2940-13-35 02:50:00 Test Item Value Reference Range Interpretation Comments RDW (test code = RDW) 13.7 11.5-14.5 [facility] CentennialGmvtntnTLLDFVOSWS4019-71-70 02:50:00 Test Item Value Reference Range Interpretation Comments MCHC (test code = MCHC) 33.6 32.0-36.0 [facility] CentennialQgiffbsDNZQNRDYAU7227-53-72 02:50:00 Test Item Value Reference Range Interpretation Comments MCH (test code = MCH) 29.8 pg 27.0-31.0 [facility] CentennialOyynabfUYLXDIMLMZ7656-15-77 02:50:00 Test Item Value Reference Range Interpretation Comments Platelet (test code = Platelet) 203 133-450 [facility] CentennialUbkjbpbYWKCNDDJKN0745-13-16 02:50:00 Test Item Value Reference Range Interpretation Comments MPV (test code = MPV) 9.5 7.4-10.4 [facility] HospitalCfgzkqgDPYAWLGVHQ9750-54-69 02:50:00 Test Item Value Reference Range Interpretation Comments RBC (test code = RBC) 4.98 4.70-6.10 [facility] CenterFszomilAATDSSPHQT2772-53-92 02:50:00 Test Item Value Reference Range Interpretation Comments WBC (test code = WBC) 12.0 3.7-10.4 [facility] HospitalCopurgcAYAZKYYJQO1509-07-80 02:50:00 Test Item Value Reference Range Interpretation Comments Hct (test code = Hct) 44.3 42.0-54.0 [facility] HospitalPyblupfIRAHULAHDF4961-48-20 02:50:00 Test Item Value Reference Range Interpretation Comments Hgb (test code = Hgb) 14.9 14.0-18.0 [facility] HospitalTouchBase Inc.2017-05-04 02:50:00 Test Item Value Reference Range Interpretation Comments CK MB Index (test 0.6 See_Comment [Automate d message] The code = CK MB Index) system w [facility] generated this result transmit lani reference range : <=2.5. The reference range was not used to interpr et this result as derek l/abnormal. [facility] HospitalTouchBase Inc.2017-05-04 02:50:00 Test Item Value Reference Range Interpretation Comments Troponin-I (test code 0.03 See_Comment [Auto mated message] The = Troponin-I) system which g enerated this result transmit lani reference range : <=0.40. The reference r tiesha was not used to interpr et this result as derek l/abnormal. [facility] HospitalTouchBase Inc.2017-05-04 02:50:00 Test Item Value Reference Range Interpretation Comments CK MB (test code = CK MB) 20.8 0.5-3.6 [facility] [employer]2017-05-04 02:50:00 Test Item Value Reference Range Interpretation Comments Magnesium Lvl (test code = Magnesium 2.4 1.8-2.4 Lvl) [facility] HospitalMobius TherapeuticsAXFMS3992-18-48 02:50:00 Test Item Value Reference Range Interpretation Comments Lipase Lvl (test code = Lipase Lvl) 87 73-393 [facility]2017-05-04 02:50:00 Test Item Value Reference Range Interpretation Comments B/C Ratio (test code = B/C Ratio) 24 6-25 [place] [address]-05-04 02:50:00 Test Item Value Reference Range Interpretation Comments Total Protein (test code = Total 7.4 6.4-8.4 Protein) [facility]2017-05-04 02:50:00 Test Item Value Reference Range Interpretation Comments Bili Total (test code = Bili Total) 1.5 0.2-1.3 [place] [address]-05-04 02:50:00 Test Item Value Reference Range Interpretation Comments Alk Phos (test code = Alk Phos) 65 39-136 [facility]2017-05-04 02:50:00 Test Item Value Reference Range Interpretation Comments Globulin (test code = Globulin) 3.4 2.7-4.2 [place] 662237-05-04 02:50:00 Test Item Value Reference Range Interpretation Comments A/G Ratio (test code = A/G Ratio) 1.2 0.7-1.6 [place] 662237-05-04 02:50:00 Test Item Value Reference Range Interpretation Comments ALT (test code = ALT) 136 See_Comment [Auto mated message] The system which ge nerated this result transmit lani reference range : <=65. The reference range was not used to interpr et this result as derek l/abnormal. [facility]2017-05-04 02:50:00 Test Item Value Reference Range Interpretation Comments Albumin Lvl (test code = Albumin Lvl) 4.0 3.5-5.0 [facility]2017-05-04 02:50:00 Test Item Value Reference Range Interpretation Comments AST (test code = AST) 188 See_Comment [Auto mated message] The system which ge nerated this result transmit lani reference range : <=37. The reference range was not used to interpr et this result as derek l/abnormal. [facility]ennialMyewddqUONJBMOTGF9655-40-74 02:50:00 Test Item Value Reference Range Interpretation Comments Eosinophils (test code = 2.1 See_Comment [A utomated message] The Eosinophils) system which ge nerated this result tra nsmitted reference range : <=4.0. The reference r tiesha was not used to int erpret this result as normal/abnormal . [facility]ennialCseoxuqDUGOUFMDTP6242-89-87 02:50:00 Test Item Value Reference Range Interpretation Comments Segs-Bands # (test code = Segs-Bands #) 7.8 1.5-8.1 [facility] CentennialOndmyzoWBULFYQSAK9527-62-24 02:50:00 Test Item Value Reference Range Interpretation Comments Basophils (test code = 0.7 See_Comment [Aut omated message] The Basophils) system which ge nerated this result tra nsmitted reference range : <=1.0. The reference r tiesha was not used to int erpret this result as normal/abnormal . [facility] CentennialNkixvzdQYYTVDDRQZ8748-02-90 02:50:00 Test Item Value Reference Range Interpretation Comments Monocytes (test code = Monocytes) 8.5 2.0-12.0 [facility] CentennialXaobfbnXIDTDCJZLY6624-32-71 02:50:00 Test Item Value Reference Range Interpretation Comments Monocytes # (test code 1.0 See_Comment [Aut omated message] The = Monocytes #) system which generated this result tra nsmitted reference range : <=0.8. The reference r tiesha was not used to int erpret this result as normal/abnormal . [facility]ennialTahcdgtRFECKDYLID8088-04-75 02:50:00 Test Item Value Reference Range Interpretation Comments Eosinophils # (test code 0.3 See_Comment [A utomated message] The = Eosinophils #) system whic h generated this result tra nsmitted reference range : <=0.5. The reference r tiesha was not used to int erpret this result as normal/abnormal . [facility] CentennialEqchwbuPQIUZQKDVF6903-96-48 02:50:00 Test Item Value Reference Range Interpretation Comments Lymphocytes # (test code = Lymphocytes 2.9 1.0-5.5 #) [facility]ennialOtnhcdmBVTBTLNLCH9010-83-30 02:50:00 Test Item Value Reference Range Interpretation Comments Lymphocytes (test code = Lymphocytes) 24.1 20.0-40.0 [facility]ennialWvhqvflMNSAUATIHO9833-99-19 02:50:00 Test Item Value Reference Range Interpretation Comments Segs (test code = Segs) 64.6 45.0-75.0 [facility] CentennialLhskhkfJAJSJVYJLB3600-50-05 02:50:00 Test Item Value Reference Range Interpretation Comments Basophils # (test code 0.1 See_Comment [Aut omated message] The = Basophils #) system which generated this result tra nsmitted reference range : <=0.2. The reference r tiesha was not used to int erpret this result as normal/abnormal . [facility]ennialGvnqxcwYMFBCSUTBP8320-50-76 02:50:00 Test Item Value Reference Range Interpretation Comments MCV (test code = MCV) 88.9 80.0-94.0 [facility] CentennialIvnuksmDVCFXQXFOD8328-75-39 02:50:00 Test Item Value Reference Range Interpretation Comments RDW (test code = RDW) 13.7 11.5-14.5 [facility]ennialXlczzjhVGULFOBGPS5582-89-28 02:50:00 Test Item Value Reference Range Interpretation Comments MCHC (test code = MCHC) 33.6 32.0-36.0 [facility] CentennialAhmjhkaUSMRWCWFUD1441-33-20 02:50:00 Test Item Value Reference Range Interpretation Comments MCH (test code = MCH) 29.8 pg 27.0-31.0 [facility]ennialMdwpfykLGXQNFIWBB7941-37-82 02:50:00 Test Item Value Reference Range Interpretation Comments Platelet (test code = Platelet) 203 133-450 [facility] CentennialSlzvdutSRIADJYCPL5219-38-24 02:50:00 Test Item Value Reference Range Interpretation Comments MPV (test code = MPV) 9.5 7.4-10.4 [facility] CentennialNwenxtuMRGKBOXMSK7726-96-56 02:50:00 Test Item Value Reference Range Interpretation Comments RBC (test code = RBC) 4.98 4.70-6.10 [facility]ennialXwnygdlNJJRYAQAAD5419-77-84 02:50:00 Test Item Value Reference Range Interpretation Comments WBC (test code = WBC) 12.0 3.7-10.4 [facility] CentennialSjdlvvwOWZJVLJJHY0614-15-57 02:50:00 Test Item Value Reference Range Interpretation Comments Hct (test code = Hct) 44.3 42.0-54.0 [facility] CentennialVbhvnhxKXIMUJDOLD0306-91-80 02:50:00 Test Item Value Reference Range Interpretation Comments Hgb (test code = Hgb) 14.9 14.0-18.0 [facility] CenterCARDIAC ENVRQEE6577-94-06 02:50:00 Test Item Value Reference Range Interpretation Comments CK MB Index (test 0.6 See_Comment [Automate d message] The code = CK MB Index) system w hich generated this result transmit lani reference range : <=2.5. The reference range was not used to interpr et this result as derek l/abnormal. [facility] [employer] RGCYSTY8079-78-10 02:50:00 Test Item Value Reference Range Interpretation Comments Troponin-I (test code 0.03 See_Comment [Auto mated message] The = Troponin-I) system which g enerated this result transmit lani reference range : <=0.40. The reference r tiesha was not used to interpr et this result as derek l/abnormal. [facility] [employer] EPWZQCD3776-99-54 02:50:00 Test Item Value Reference Range Interpretation Comments CK MB (test code = CK MB) 20.8 0.5-3.6 [facility] [employer] [id number] 02:50:00 Test Item Value Reference Range Interpretation Comments Magnesium Lvl (test code = Magnesium 2.4 1.8-2.4 Lvl) [facility] [employer]2017-05-04 02:50:00 Test Item Value Reference Range Interpretation Comments Lipase Lvl (test code = Lipase Lvl) 87 73-393 [facility] [employer] [id number] 02:50:00 Test Item Value Reference Range Interpretation Comments B/C Ratio (test code = B/C Ratio) 24 6-25 [facility] [employer] [id number] 02:50:00 Test Item Value Reference Range Interpretation Comments Total Protein (test code = Total 7.4 6.4-8.4 Protein) [facility] [employer]2017-05-04 02:50:00 Test Item Value Reference Range Interpretation Comments Bili Total (test code = Bili Total) 1.5 0.2-1.3 [facility] [employer] [id number] 02:50:00 Test Item Value Reference Range Interpretation Comments Alk Phos (test code = Alk Phos) 65 39-136 [facility] [employer] [id number] 02:50:00 Test Item Value Reference Range Interpretation Comments Globulin (test code = Globulin) 3.4 2.7-4.2 [facility] [employer]2017-05-04 02:50:00 Test Item Value Reference Range Interpretation Comments A/G Ratio (test code = A/G Ratio) 1.2 0.7-1.6 [facility]2017-05-04 02:50:00 Test Item Value Reference Range Interpretation Comments ALT (test code = ALT) 136 See_Comment [Auto mated message] The system which ge nerated this result transmit lani reference range : <=65. The reference range was not used to interpr et this result as derek l/abnormal. [facility]2017-05-04 02:50:00 Test Item Value Reference Range Interpretation Comments Albumin Lvl (test code = Albumin Lvl) 4.0 3.5-5.0 [facility]2017-05-04 02:50:00 Test Item Value Reference Range Interpretation Comments AST (test code = AST) 188 See_Comment [Auto mated message] The system which ge nerated this result transmit lani reference range : <=37. The reference range was not used to interpr et this result as derek l/abnormal. [facility]ennialFmwwvvkTYEZNTYVXC3664-99-33 02:50:00 Test Item Value Reference Range Interpretation Comments Eosinophils (test code = 2.1 See_Comment [A utomated message] The Eosinophils) system which ge nerated this result tra nsmitted reference range : <=4.0. The reference r tiesha was not used to int erpret this result as normal/abnormal . [facility] CentennialKekiejjNEACFPQVGP8008-38-78 02:50:00 Test Item Value Reference Range Interpretation Comments Segs-Bands # (test code = Segs-Bands #) 7.8 1.5-8.1 [facility] CentennialFzbxoijMFWHUCVPVR9594-55-26 02:50:00 Test Item Value Reference Range Interpretation Comments Basophils (test code = 0.7 See_Comment [Aut omated message] The Basophils) system which ge nerated this result tra nsmitted reference range : <=1.0. The reference r tiesha was not used to int erpret this result as normal/abnormal . [facility]ennialXqovmgpGIXOZCJLCE9586-57-50 02:50:00 Test Item Value Reference Range Interpretation Comments Monocytes (test code = Monocytes) 8.5 2.0-12.0 [facility] CentennialIosvspqBSBLYGKPTE1002-49-98 02:50:00 Test Item Value Reference Range Interpretation Comments Monocytes # (test code 1.0 See_Comment [Aut omated message] The = Monocytes #) system which generated this result tra nsmitted reference range : <=0.8. The reference r tiesha was not used to int erpret this result as normal/abnormal . [facility] CentennialUttfavvTUYUAPVDJK1174-61-29 02:50:00 Test Item Value Reference Range Interpretation Comments Eosinophils # (test code 0.3 See_Comment [A utomated message] The = Eosinophils #) system whic h generated this result tra nsmitted reference range : <=0.5. The reference r tiesha was not used to int erpret this result as normal/abnormal . [facility] CentennialNqtonibVHAQMGTHPE9374-07-46 02:50:00 Test Item Value Reference Range Interpretation Comments Lymphocytes # (test code = Lymphocytes 2.9 1.0-5.5 #) [facility] CentennialBoqgziwXQXBBGNTIF5277-80-99 02:50:00 Test Item Value Reference Range Interpretation Comments Lymphocytes (test code = Lymphocytes) 24.1 20.0-40.0 [facility] CentennialHtluefjBMKHYBOIUS6532-46-06 02:50:00 Test Item Value Reference Range Interpretation Comments Segs (test code = Segs) 64.6 45.0-75.0 [facility] CentennialJfifocjKTOOJBPSJB5021-49-06 02:50:00 Test Item Value Reference Range Interpretation Comments Basophils # (test code 0.1 See_Comment [Aut omated message] The = Basophils #) system which generated this result tra nsmitted reference range : <=0.2. The reference r tiesha was not used to int erpret this result as normal/abnormal . [facility]ennialXsigwqgBTGXNZVTUF1741-33-01 02:50:00 Test Item Value Reference Range Interpretation Comments MCV (test code = MCV) 88.9 80.0-94.0 [facility] CentennialJjtbcwfRRDCGLVFXU3170-00-08 02:50:00 Test Item Value Reference Range Interpretation Comments RDW (test code = RDW) 13.7 11.5-14.5 [facility] CentennialJgovtpgGVFAEUMFGT1743-72-22 02:50:00 Test Item Value Reference Range Interpretation Comments MCHC (test code = MCHC) 33.6 32.0-36.0 [facility] CentennialEkdrisfJRJQHYANXF5924-79-22 02:50:00 Test Item Value Reference Range Interpretation Comments MCH (test code = MCH) 29.8 pg 27.0-31.0 [facility] CentennialUncmbqiGSIYPCFEDL5235-70-14 02:50:00 Test Item Value Reference Range Interpretation Comments Platelet (test code = Platelet) 203 133-450 [facility] CentennialZqywaviPDWSIYKRKV4427-59-55 02:50:00 Test Item Value Reference Range Interpretation Comments MPV (test code = MPV) 9.5 7.4-10.4 [facility] CentennialFankcgvWAFMUHWJCR5816-10-39 02:50:00 Test Item Value Reference Range Interpretation Comments RBC (test code = RBC) 4.98 4.70-6.10 [facility] CentennialFcdoxlqAUJVFJBQMJ0579-84-32 02:50:00 Test Item Value Reference Range Interpretation Comments WBC (test code = WBC) 12.0 3.7-10.4 [facility] CentennialYeaiyieFNQTUJRTGP3297-43-26 02:50:00 Test Item Value Reference Range Interpretation Comments Hct (test code = Hct) 44.3 42.0-54.0 [facility] CentennialLolmjsoZVNPMAFDEF1241-61-91 02:50:00 Test Item Value Reference Range Interpretation Comments Hgb (test code = Hgb) 14.9 14.0-18.0 [facility] Notes Date/Time Note Provider Source 2016-11-03 22:08:07-00:00 Patient Name: ELEANOR RUBY [facility] : 1960; Age: 56 years y/o Male MR: [id number] Study: Chest 1view DX dated 11/03/2016 Clinical Indication: Chest pain - dizziness; Comparison: None Heart size is normal. There is question of nonspecific mild narrowing to the mid trachea. Mediastinal structures are otherwise unremarkable. No focal infiltrates within the lungs, no edema and no pneumothorax. Small calcification superior to the right humeral head may represent calcific tendinitis or calcific bursitis. SL: KALI-TAD
--- NOTE | 2023-01-09 15:27 | EDPHYS ---
Physician Documentation [facility] Name: Jose L Ruby Age: 62 yrs Sex: Male : 1960 Arrival Date: 01/09/2023 Time: 14:39 Bed 5 Private MD: ED Physician Elías Gottlieb HPI: 01/09 15:15 This 62 yrs old Male presents to ER via Ambulatory with complaints of Facial swelling cp on nose and cheek. 15:15 The patient presents with pain, swelling, redness. cp 15:15 Onset: The symptoms/episode began/occurred gradually, and became worse today. cp Associated signs and symptoms: Pertinent negatives: cough, ear ache, sore throat, fever. Severity of symptoms: in the emergency department the symptoms are unchanged despite home interventions. 15:15 Patient reports he noticed "pimple" left facial cheek and today swelling, pain and cp redness of nose with swelling under left eye. Historical: - Allergies: 14:49 No Known Allergies; vg1 - Home Meds: 14:49 atorvastatin oral [Active]; vg1 - PMHx: 14:49 Congestive heart failure; vg1 - PSHx: 14:49 Ankle; vg1 - Immunization history:: Client reports receiving the 2nd dose of the Covid vaccine. - Social history:: Smoking status: Patient reports the use of cigarette tobacco products, denies chronic smoking, but will smoke occasionally. ROS: 15:20 Constitutional: Negative for body aches, chills, fever. cp 15:20 ENT: Positive for nasal swelling and pain. cp 15:20 Respiratory: Negative for cough, shortness of breath, wheezing. 15:20 Abdomen/GI: Negative for abdominal pain, nausea, vomiting, and diarrhea. 15:20 Neuro: Negative for altered mental status, headache, weakness. Exam: 15:23 Constitutional: The patient appears in no acute distress, alert, awake, cp non-diaphoretic, non-toxic, well developed, well nourished, obese. 15:23 Head/face: Noted is mild swelling noted under left eye and left facial cheek with pain, cp erythema and swelling noted to septum of nose. no abscess noted, marked tenderness to nose. 15:23 Eyes: Periorbital structures: swelling, that is mild, on the left lower eyelid, Pupils: equal, round, and reactive to light and accomodation, Extraocular movements: intact throughout, Conjunctiva: normal, no exudate, no injection, Sclera: no appreciated abnormality. 15:23 ENT: External ear(s): are unremarkable, Ear canal(s): are normal, clear, TM's: are normal, no dullness, no erythema, Nose: External nose: erythema is noted, swelling is noted, apex of the nose and nasal septum, Nasal septum: is midline, Mouth: Lips: moist, Oral mucosa: pink and intact, moist, Posterior pharynx: is normal, airway is patent, no erythema, no exudate. 15:23 Neck: ROM/movement: is normal, is supple, without pain, no range of motions limitations, no meningismus, no nuchal rigidity. 15:23 Chest/axilla: Inspection: normal. 15:23 Cardiovascular: Rate: normal. 15:23 Respiratory: the patient does not display signs of respiratory distress, Respirations: normal, no use of accessory muscles, no retractions. Vital Signs: 14:46 BP 113 / 72; Pulse 98; Resp 17; Temp 99.3(O); Pulse Ox 95% on R/A; Weight 112.94 kg; vg1 Height 5 ft. 10 in. ; 14:46 Body Mass Index 35.73 (112.94 kg, 177.8 cm) vg1 MDM: 14:55 Patient medically screened. sb4 15:15 Differential diagnosis: abscess, cellulitis, sepsis. 15:25 Data reviewed: vital signs, nurses notes. ED course: Patient declines any blood work at this time. Will treat with oral antibiotics. 15:27 I considered the following discharge prescriptions or medication management in the emergency department Medications were administered in the Emergency Department. See MAR. 15:27 Care significantly affected by the following chronic conditions: Congestive Heart cp Failure. Counseling: I had a detailed discussion with the patient and/or guardian regarding: the historical points, exam findings, and any diagnostic results supporting the discharge/admit diagnosis, to return to the emergency department if symptoms worsen or persist or if there are any questions or concerns that arise at home. 01/09 15:17 Order name: IV Administered Medications: 15:30 Drug: Clindamycin PO 600 mg Route: PO; [facility] 15:34 Follow up: Response: Medication administered at discharge. 3 Disposition: 16:00 Chart complete. cp Disposition Summary: 01/09/23 15:27 Discharge Ordered Location: Home cp Problem: new cp Symptoms: have improved cp Condition: Stable cp Diagnosis - Cellulitis of face cp Followup: cp - With: Private Physician - When: 1 - 2 days - Reason: Recheck today's complaints Discharge Instructions: - Discharge Summary Sheet cp - Cellulitis, Adult cp Forms: - Medication Reconciliation Form cp - Thank You Letter cp - Antibiotic Education cp - Prescription Opioid Use cp - [email or web address]_[email or web address] cp Prescriptions: - mupirocin 2 % Topical ointment - apply 1 application by TOPICAL route 2 to 3 times per day for 7 days apply to cp nasal passages as directed; 15 gram tube; Refills: 0, Product Selection Permitted - Clindamycin HCl 300 mg Oral Capsule - take 1 capsule by ORAL route every 6 hours for 10 days; 40 capsule; Refills: 0, cp Product Selection Permitted Signatures: Dispatcher [employer] EDElías Boateng PA PA cp Garcia, Victoria, RN RN vg1 Taim Espinosa RN RN eh3 Caty Rosario, PA-[place] PA-C sb4
--- NOTE | 2023-01-09 15:27 | ER ---
Nurse's Notes [facility] Name: Jose L Ruby Age: 62 yrs Sex: Male : 1960 Arrival Date: 01/09/2023 Time: 14:39 Bed 5 Private MD: Diagnosis: Cellulitis of face Presentation: 01/09 14:46 Chief complaint: Patient states: noticed a pimple on left side of cheek, today swelling vg1 of nose and Left eye, stated nose is tender to touch. Also stated had the shingles an pneumonia vaccine on Tuesday, "not too sure if that has anything to do with the swelling". Coronavirus screen: Vaccine status: Patient reports receiving the 2nd dose of the covid vaccine. Client denies travel out of the [place] in the last 14 days. Ebola Screen: Patient negative for fever greater than or equal to 101.5 degrees Fahrenheit, and additional compatible Ebola Virus Disease symptoms Patient denies exposure to infectious person. Patient denies travel to an Ebola-affected area in the 21 days before illness onset. Initial Sepsis Screen: Does the patient meet any 2 criteria? HR > 90 bpm. Does the patient have a suspected source of infection? No. Patient's initial sepsis screen is negative. Risk Assessment: Do you want to hurt yourself or someone else? Patient reports no desire to harm self or others. Onset of symptoms was January 07, 2023. 14:46 Method Of Arrival: Ambulatory 1 14:46 Acuity: NGUYỄN 4 vg1 Triage Assessment: 14:49 General: Appears uncomfortable, Behavior is cooperative. Pain: Complains of pain in vg1 left eye and nose Pain currently is 8 out of 10 on a pain scale. Neuro: Level of Consciousness is awake, alert, obeys commands, Oriented to person, place, time, situation. Respiratory: Airway is patent Respiratory effort is even, unlabored. Derm: Skin is red. Historical: - Allergies: 14:49 No Known Allergies; vg1 - Home Meds: 14:49 atorvastatin oral [Active]; vg1 - PMHx: 14:49 Congestive heart failure; vg1 - PSHx: 14:49 Ankle; vg1 - Immunization history:: Client reports receiving the 2nd dose of the Covid vaccine. - Social history:: Smoking status: Patient reports the use of cigarette tobacco products, denies chronic smoking, but will smoke occasionally. Screenin:55 [facility] ED Fall Risk Assessment (Adult) Score/Fall Risk Level 0 - 2 = Low Risk. Abuse eh3 screen: Denies threats or abuse. Denies injuries from another. Nutritional screening: No deficits noted. Tuberculosis screening: No symptoms or risk factors identified. Assessment: 14:55 General: Appears in no apparent distress. uncomfortable, Behavior is calm, cooperative, eh3 appropriate for age. Pain: Complains of pain in face. Neuro: Level of Consciousness is awake, alert, obeys commands, Oriented to person, place, time, situation. Cardiovascular: Capillary refill < 3 seconds Patient's skin is warm and dry. Respiratory: Airway is patent Respiratory effort is even, unlabored, Respiratory pattern is regular, symmetrical. GI: Abdomen is round non-distended. Derm: swelling around left eye. Musculoskeletal: Circulation, motion, and sensation intact. 15:15 Reassessment: Pt states he has a problem at his home and needs to leave hospital KENROY, 3 provider notified. Vital Signs: 14:46 BP 113 / 72; Pulse 98; Resp 17; Temp 99.3(O); Pulse Ox 95% on R/A; Weight 112.94 kg; vg1 Height 5 ft. 10 in. ; 14:46 Body Mass Index 35.73 (112.94 kg, 177.8 cm) vg1 ED Course: 14:41 Patient arrived in ED. im 14:49 Triage completed. vg1 14:49 Arm band placed on. vg1 14:55 Caty Rosario PA-C is PHCP. sb4 14:55 Elías Gottlieb MD is Attending Physician. sb4 14:55 Patient has correct armband on for positive identification. Bed in low position. Call eh3 light in reach. Side rails up X2. Pulse ox on. NIBP on. 14:57 Tami Espinosa, PACO is Primary Nurse. eh3 15:02 Elías Peralta PA is PHCP. sb4 15:37 No provider procedures requiring assistance completed. Patient did not have IV access eh3 during this emergency room visit. Administered Medications: 15:30 Drug: Clindamycin PO 600 mg Route: PO; eh3 15:34 Follow up: Response: Medication administered at discharge. eh3 Medication: 15:37 VIS not applicable for this client. eh3 Outcome: 15:27 Discharge ordered by . cp 15:38 Discharged to home ambulatory. eh3 15:38 Condition: stable 15:38 Discharge instructions given to patient, Instructed on discharge instructions, follow up and referral plans. medication usage, Demonstrated understanding of instructions, follow-up care, medications, Prescriptions given X 2. 15:38 Patient left the ED. eh3 Signatures: Elías Peralta PA PA cp Garcia, Victoria RN RN vg1 Tami Espinosa RN RN eh3 Caty Rosario PA-C PA-Savannah sb4 Alba Christian
[2023-01-09 17:52] VITALS: BP 113/72; TEMP 99.3; O2SAT 95
== END 2023-01-09 15:38 | disposition home or self-care (01) ==
LOC: ER 14:39
DX: L03.211 Cellulitis of face (principal); Z72.0 Tobacco use
CPT/HCPCS: 99283

== ENCOUNTER → 2023-09-21 | Emergency (ER) | payer OTHER ==
[~2023-09-21] MED LIST: FUROSEMIDE 20 MG/ 2ML VIAL ONE
--- OUTSIDE RECORDS SUMMARY | 2023-09-21 18:03 | XMS REPORT | Clinical Summary ---
Author Name Unknown Organization [facility] Address [address] [place] [address] Care Team Providers Care Plug Sorter Name Role Phone Unavailable Primary Care Provider Unavailabl e Allergies No known active allergies Medications Medication Sig Dispensed Refills Start Date End Date Status docosahexaenoic acid/epa (FISH OIL ORAL) Take 2,000 mg by mouth daily. 0 Active nicotine (NICODERM CQ) 21 mg/24 hr transdermal patchIndications:Tob acco dependence syndrome Apply 1 patch to skin and change patch daily as directed for tobacco cessation (alternate sites). 28 patch 0 03/05/2021 Active NICORETTE 2 mg gum fruit chillIndications:Tob acco dependence syndrome Chew and park one piece every 2h. Avoid acidic beverages 5 min before, during & after 200 Piece 0 03/05/2021 Active gabapentin (NEURONTIN) 300 mg capsuleIndications:I nsomnia, not otherwise specified Take one at HS for first day then may increase to 2-3 qHS 90 capsule 0 03/11/2021 Active buPROPion (WELLBUTRIN XL) 150 mg 24 hr tabletIndications:Ex -smoker for less than 1 year Take 1 tablet (150 mg) by mouth every morning. 30 tablet 0 04/09/2021 Active Active Problems Problem Noted Date Diagnosed Date Prostatitis 02/12/2021 Anxiety disorder 02/12/2021 Hypercholesterolemia 02/12/2021 Tobacco dependence syndrome 12/31/2020 Osteoporosis 09/23/2016 Obese class II 09/20/2013 Medical History Medical History Date Comments Gastroesophageal reflux disease Social History Tobacco Use Types Packs/Day Years Used Date Smoking Tobacco: Former Cigarettes 1 45 0 07/04/1975 - 01/22/2021 Smokeless Tobacco: Former Quit: 1994 Tobacco Cessation:Counseling Given: Yes Alcohol Use Standard Drinks/Week Comments Yes 0 (1 standard drink = 0.6 oz pure alcohol) Reports drinking 1-2 drinks per month Sex and Gender Information Value Date Recorded Sex Assigned at Not on file Gender Identity Not on file Sexual Orientation Not on file Obstetrics History Plan of Treatment Health Maintenance Due Date Last Done Comments COVID-19 Vaccine (#1) 04/23/1961 Influenza Vaccine 03/04/2023
[2023-09-21 19:02] LABS: Absolute Basophils 0.1 K/uL (0-0.5); Absolute Eosinophils 0.4 K/uL (0-0.5); Absolute Lymphocytes (CBC) 4.2 K/uL (0.7-4.9); Absolute Monocytes 0.7 K/uL (0.1-1.3); Absolute Neutrophil 6.5 K/uL (1.8-8.0); Basophils % 0.5 % (0-1.3); Hematocrit 47.8 % (39.6-49.0); Hemoglobin 16.2 g/dL (13.6-17.9); Lymphocytes % 35.7 % (15.3-44.8); MCH 29.8 pg (27.0-35.0); MCHC 33.9 g/dL (32.0-36.0); MPV 8.1 fL (7.6-11.3); Monocytes % 5.7 % (3.3-12.3); Neutrophils % 55.1 % (41.7-73.7); Nucleated Red Blood Cells % 0.1 % (0-0); Platelets 313 thou/uL (152-406); RBC Red Blood Cell Count 5.43 M/uL (4.33-5.43); Red Cell Distribution Width 13.8 % (12.1-15.2)
[2023-09-21 19:24] LABS: Anion Gap 8.8 mEq/L (5.0-15.0); BUN Blood Urea Nitrogen 11 mg/dL (7-18); Bicarbonate 30 mEq/L (21-32); Glomerular Filtration Rate 70 ml/min (=/>90); Glucose Level 90 mg/dL (74-106); NT PRO-BNP 27 pg/mL (<125); Sodium Level 140 mEq/L (136-145)
--- NOTE | 2023-09-21 19:24 | RAD REPORT ---
EXAM DESCRIPTION: Hannah Single View09/21/2023 7:10 pm CLINICAL HISTORY: Chest pain COMPARISON: 2022 FINDINGS: The lungs appear clear of acute infiltrate. The heart is normal size IMPRESSION: No acute abnormalities displayed
[2023-09-21 19:25] LABS: Magnesium 2.5 mg/dL (1.6-2.4); Potassium 3.8 mEq/L (3.5-5.1); Troponin High Sensitivity < 3.0 pg/mL (<58.9)
--- NOTE | 2023-09-21 20:29 | ER ---
Nurse's Notes [facility] Name: Jose L Ruby Age: 62 yrs Sex: Male : 1960 Arrival Date: 09/21/2023 Time: 18:00 Bed 5 Private MD: Diagnosis: Dyspnea Presentation: 09/20 18:18 Chief complaint: Patient states: SOB - pt reports taking medication for fluid around ld1 heart, "I haven't been taking my medicine.". Coronavirus screen: At this time, the client does not indicate any symptoms associated with coronavirus-19. Ebola Screen: No symptoms or risks identified at this time. Initial Sepsis Screen: Does the patient meet any 2 criteria? No. Patient's initial sepsis screen is negative. Does the patient have a suspected source of infection? No. Patient's initial sepsis screen is negative. Risk Assessment: Do you want to hurt yourself or someone else? Patient reports no desire to harm self or others. Onset of symptoms was September 21, 2023. 18:18 Method Of Arrival: Wheelchair ld1 18:18 Acuity: NGUYỄN 3 ld1 Triage Assessment: 18:19 General: Appears in no apparent distress. comfortable, Behavior is calm, cooperative, ld1 appropriate for age. Pain: Denies pain. EENT: No signs and/or symptoms were reported regarding the EENT system. Neuro: Level of Consciousness is awake, alert, obeys commands, Oriented to person, place, time, situation. Cardiovascular: Capillary refill < 3 seconds Patient's skin is warm and dry. Respiratory: Reports shortness of breath at rest on exertion Airway is patent Respiratory effort is even, unlabored, Onset: The symptoms/episode began/occurred suddenly, the patient has moderate shortness of breath. GI: Abdomen is round non-distended. : No signs and/or symptoms were reported regarding the genitourinary system. Historical: - Allergies: 18:19 No Known Allergies; ld1 - PMHx: 18:19 Congestive heart failure; ld1 - PSHx: 18:19 Ankle; ld1 - Immunization history:: Adult Immunizations up to date. - Social history:: Smoking status: Patient reports the use of cigarette tobacco products, smokes one-half pack cigarettes per day, Patient/guardian denies using alcohol. Screenin:47 [facility] ED Fall Risk Assessment (Adult) History of falling in the last 3 months, as9 including since admission No falls in past 3 months (0 pts) Confusion or Disorientation No (0 pts) Intoxicated or Sedated No (0 pts) Impaired Gait No (0 pts) Mobility Assist Device Used Yes (1 pt) Altered Elimination No (0 pt) Score/Fall Risk Level 0 - 2 = Low Risk. Abuse screen: Denies threats or abuse. Nutritional screening: No deficits noted. Tuberculosis screening: No symptoms or risk factors identified. Assessment: 20:30 Reassessment: Patient is alert, oriented x 3, equal unlabored respirations, skin as9 warm/dry/pink. General: Appears in no apparent distress. comfortable, Behavior is calm, cooperative, appropriate for age. Pain: Denies pain. Neuro: Level of Consciousness is awake, alert, obeys commands, Oriented to person, place, time, situation, Appropriate for age. Cardiovascular: Rhythm is regular. Respiratory: Airway is patent Respiratory effort is even, unlabored, Respiratory pattern is regular, symmetrical. GI: No signs and/or symptoms were reported involving the gastrointestinal system. : No signs and/or symptoms were reported regarding the genitourinary system. EENT: No signs and/or symptoms were reported regarding the EENT system. Derm: Skin is intact, Skin is pink, warm \\T\\ dry. Musculoskeletal: Circulation, motion, and sensation intact. Range of motion: intact in all extremities. 21:01 Respiratory: Respiratory: Respiratory: Breath sounds are clear. as9 Vital Signs: 18:18 BP 128 / 74; Pulse 86; Resp 18; Temp 98.1(TE); Pulse Ox 100% on R/A; Weight 113.4 kg; ld1 Height 5 ft. 11 in. ; Pain 0/10; 19:15 BP 116 / 86; Pulse 85; Resp 20; Temp 97; Pulse Ox 100% on R/A; as9 20:00 BP 120 / 84; Pulse 82; Resp 20; Temp 98; Pulse Ox 99% on R/A; as9 20:35 BP 115 / 87; Pulse 83; Resp 20; Temp 98; Pulse Ox 100% on R/A; as9 18:18 Body Mass Index 34.87 (113.40 kg, 180.34 cm) ld1 18:18 Pain Scale: Adult ld1 ED Course: 18:04 Patient arrived in ED. im 18:09 [facility] Chacon F[facility]-C [facility] kb 18:09 Andres Briscoe MD is Attending Physician. kb 18:19 Triage completed. ld1 18:19 Arm band placed on right wrist. ld1 18:49 Brayden Disla, RN is Primary Nurse. bp 18:50 XRAY Chest (1 view) Sent. bp 19:03 Warm blanket given. jg11 19:03 Initial lab(s) drawn, by me, sent to lab. EKG done, by ED staff. jg11 19:12 XRAY Chest (1 view) In Process Unspecified. EDMS 20:47 Patient has correct armband on for positive identification. Bed in low position. Call as9 light in reach. Side rails up X 1. 20:56 No provider procedures requiring assistance completed. IV discontinued, intact, as9 bleeding controlled, No redness/swelling at site. Pressure dressing applied. 21:01 Provided Education on: discharge instruction given and explained well to the patient. as9 Administered Medications: 20:47 Drug: Furosemide IVP 20 mg IVP once; give over 2 minutes Route: IVP; Site: left as9 antecubital; 21:03 Follow up: Response: No adverse reaction as9 Medication: 20:47 VIS not applicable for this client. as9 Outcome: 20:28 Discharge ordered by . kb 20:59 Discharged to home via wheelchair, as9 20:59 Condition: good 20:59 Discharge instructions given to patient, Instructed on discharge instructions, follow up and referral plans. 21:04 Patient left the ED. as9 Signatures: Dispatcher [employer] EDMN Alee Chacon FNP-C FNP-Brayden Gomes, RN RN Deidre Espinoza RN RN ld1 Alba Christian Jordan jg11 Mars Cuevas, RN RN as9
--- NOTE | 2023-09-21 20:29 | EDPHYS ---
Physician Documentation [facility] Name: Jose L Ruby Age: 62 yrs Sex: Male : 1960 Arrival Date: 09/21/2023 Time: 18:00 Bed 5 Private MD: ED Physician Andres Briscoe HPI: 09/20 20:25 This 62 yrs old Male presents to ER via Wheelchair with complaints of Shortness Of kb Breath. 20:25 Patient is a 62-year-old male who presents for shortness of breath that started kb yesterday. States he had forgotten to take his Lasix for over a week and then he started having shortness of breath that became worse today so he called 911 to bring him in for evaluation. Denies chest pain.. Historical: - Allergies: 18:19 No Known Allergies; ld1 - PMHx: 18:19 Congestive heart failure; ld1 - PSHx: 18:19 Ankle; ld1 - Immunization history:: Adult Immunizations up to date. - Social history:: Smoking status: Patient reports the use of cigarette tobacco products, smokes one-half pack cigarettes per day, Patient/guardian denies using alcohol. ROS: 20:24 Constitutional: As per HPI kb Exam: 20:24 Constitutional: This is a well developed, well nourished patient who is awake, alert, kb and in no acute distress. Head/Face: Normocephalic, atraumatic. ENT: Moist Mucous membranes Cardiovascular: Regular rate Respiratory: Respirations even and unlabored. No increased work of breathing. Talking in full sentences Abdomen/GI: Soft, non-tender. No distention Skin: Warm, dry with normal turgor. Normal color. MS/ Extremity: Pulses equal, no cyanosis. Neurovascular intact. Full, normal range of motion. Neuro: Awake and alert, GCS 15, oriented to person, place, time, and situation. Moves all extremities. Normal gait. Vital Signs: 18:18 BP 128 / 74; Pulse 86; Resp 18; Temp 98.1(TE); Pulse Ox 100% on R/A; Weight 113.4 kg; ld1 Height 5 ft. 11 in. ; Pain 0/10; 19:15 BP 116 / 86; Pulse 85; Resp 20; Temp 97; Pulse Ox 100% on R/A; as9 20:00 BP 120 / 84; Pulse 82; Resp 20; Temp 98; Pulse Ox 99% on R/A; as9 20:35 BP 115 / 87; Pulse 83; Resp 20; Temp 98; Pulse Ox 100% on R/A; as9 18:18 Body Mass Index 34.87 (113.40 kg, 180.34 cm) ld1 18:18 Pain Scale: Adult ld1 MDM: 18:09 Patient medically screened. kb 20:24 Differential diagnosis: Bronchitis CHF exacerbation, pulmonary edema. Data reviewed: kb vital signs, nurses notes. Management of patient was discussed with the following: Primary Care Provider: Dr Mcclain recommends outpatient follow up. Historians other than the Patient: EMS: [facility]. Counseling: I had a detailed discussion with the patient and/or guardian regarding the historical points, exam findings, and any diagnostic results supporting the discharge/admit diagnosis, lab results, radiology results, the need for outpatient follow up, a family practitioner, to return to the emergency department if symptoms worsen or persist or if there are any questions or concerns that arise at home. 09/20 18:09 Order name: Basic Metabolic Panel; Complete Time: 19:41 kb 09/20 18:09 Order name: CBC with Diff; Complete Time: 19:07 kb 09/20 18:09 Order name: Magnesium; Complete Time: 19:41 kb 09/20 18:09 Order name: NT PRO-BNP; Complete Time: 19:41 kb 09/20 18:09 Order name: Troponin HS; Complete Time: 19:41 kb 09/20 18:09 Order name: XRAY Chest (1 view); Complete Time: 19:41 kb 09/20 18:09 Order name: EKG; Complete Time: 18:09 kb 09/20 18:09 Order name: Cardiac monitoring; Complete Time: 19:02 kb 09/20 18:09 Order name: EKG - Nurse/Tech; Complete Time: 19:02 kb 09/20 18:09 Order name: IV Saline Lock; Complete Time: 19:02 kb 09/20 18:09 Order name: Labs collected and sent; Complete Time: 19:02 kb 09/20 18:09 Order name: O2 Per Protocol; Complete Time: 18:50 kb 09/20 18: Order name: O2 Sat Monitoring; Complete Time: 18:50 kb Administered Medications: 20:47 Drug: Furosemide IVP 20 mg IVP once; give over 2 minutes Route: IVP; Site: left as9 antecubital; 21:03 Follow up: Response: No adverse reaction as9 Disposition Summary: 09/21/23 20:28 Discharge Ordered Notes: Location: Home kb Condition: Stable kb Diagnosis - Dyspnea kb Followup: kb - With: Emergency Department - When: As needed - Reason: Worsening of condition Followup: kb - With: Private Physician - When: 2 - 3 days - Reason: Recheck today's complaints, Continuance of care, Re-evaluation by your physician Discharge Instructions: - Discharge Summary Sheet kb - Shortness of Breath, Adult, [id number] kb Forms: - Medication Reconciliation Form kb - Thank You Letter kb - Antibiotic Education kb - Prescription Opioid Use kb - Patient Portal Instructions kb - Leadership Thank You Letter kb Signatures: Dispatcher [employer] Alee Rawls, MANI-C TRAY DELIVERY AIDE-Deidre Russo, RN RN ld1 Mars Cuevas RN RN as9
[2023-09-21 21:47] VITALS: BP 115/87; TEMP 98; O2SAT 100
--- NOTE | 2023-09-22 14:24 | EKG ---
Test Date: 2023-09-21 Test Time: 18:43:08 Cat Skinner: BENEDICT MEASUREMENT RESULTS: Intervals: Rate: 78 UT: 160 QRSD: 90 QT: 388 QTc: 442 [place]: P: 59 UT: 160 QRS: 60 T: 64 INTERPRETIVE STATEMENTS: Normal sinus rhythm Normal ECG Compared to ECG 11/22/2022 14:18:19 No significant changes Electronically Signed On 09-22-23 14:22:54 CDT by Riki Cuellar
== END ==
LOC: ER 18:00
DX: R06.00 Dyspnea, unspecified (principal); I50.9 Heart failure, unspecified; F17.210 Nicotine dependence, cigarettes, uncomplicated
CPT/HCPCS: 85025; 80048; 36415; 83735; 84484; 83880; 71045; J1940; 93005